=== PATIENT | female | born 1985 | race Caucasian/White ===

== ENCOUNTER 2017-12-16 14:27 | Observation (INO) ==
[2017-12-16] MEDS ORDERED: Acetaminophen 325 MG TABLET PO PRN (21:25)
[2017-12-16] MEDS ORDERED: *HR* LORazepam 2 MG/ML VIAL IVP PRN (21:29)
[2017-12-16 21:58] LABS: Basophils % 0.4 %; Eosinophils # 0.1 K/mcL (0.0-0.6); Eosinophils % 2.8 %; Hematocrit 34.7 % (35.3-44.9); Hemoglobin 12.6 g/dL (11.5-15.4); Immature Granulocytes % 0.4 % (0-4); Lymphocytes # 0.7 K/mcL (0.6-4.6); Lymphocytes % 29.3 %; Mean Corpuscular HGB Conc 36.3 g/dL (31.6-35.5); Mean Corpuscular Volume 96.4 fL (83.0-100.0); Mean Platelet Volume 11.6 fL (9.4-12.4); Monocytes # 0.3 K/mcL (0.0-1.3); Monocytes % 13.7 %; Neutrophils # 1.3 K/mcL (1.6-8.9); Red Cell Distribution Width 12.5 % (11.5-14.5); Segmented Neutrophils % 53.4 %
[2017-12-16] MEDS: Ringers Solution, Lactated 1,000 ML IVC SCH (22:04)
[2017-12-16 22:18] LABS: Platelet Count 89 K/mcL (140-400)
[2017-12-16 22:19] LABS: Alanine Aminotransferase 30 Units/L (7-52); Albumin 4.4 g/dL (3.5-5.7); Albumin/Globulin Ratio 1.7 (1.1-2.2); Alkaline Phosphatase 57 Units/L (34-104); Aspartate Amino Transferase 89 Units/L (13-39); BUN/Creatinine Ratio 23 (6-26); Blood Urea Nitrogen 6 mg/dL (6-20); Calcium 8.8 mg/dL (8.6-10.3); Carbon Dioxide 22 mEq/L (23-29); Chloride 103 mEq/L (98-107); Globulin 2.6 g/dL (2.4-3.5); Glucose 87 mg/dL (70-105); Osmolality,Calculated 279 (280-300); Potassium 3.2 mEq/L (3.5-5.1); Sodium 136 mEq/L (136-145); eGFR For African Americans > 60 (> 60); eGFR For Non-African Americans > 60 (> 60)
[2017-12-16 22:22] LABS: Large Platelets Present (Not Present); Platelet Estimate Decreased (Normal)
[2017-12-16 23:08] LABS: Bilirubin,Urine Small (Negative); Blood,Urine Negative (Negative); Clarity,Urine Clear (Clear); Color,Urine Dark Yellow (Yellow); Glucose,Urine (UA) Normal (Normal); Ketones,Urine 80 mg/dL (Negative); Leukocyte Esterase,Urine Negative (Negative); Nitrite,Urine Negative (Negative); Protein,Urine Negative (Neg-Trace); Specific Gravity,Urine 1.015 (1.010-1.025); Urobilinogen,Urine Normal (Normal)
--- NOTE | 2017-12-16 23:11 | Internal Med History&Physical ---
Date of Encounter: 12/16/17 Time of Encounter: 23:06 Internal Medicine - H&P: HPI Chief complaint: seizure Admitted From: Hospital to Hospital Transfer Plans for Post Hospital Care: Home History of present illness: Ms. Garvey is a 32 year old female who reports a history of hypertension, anxiety disorder and "seizures" that occurred 4 weeks ago after a trip to [place], happening while en route in [place]. She is admitted here today on transfer from outside hospital because she felt an aura suggestive of an upcoming seizure for which reason she sought attention. She did not have a seizure and only feels that her legs are weak. She is unable to describe the past seizure she had as she states that her memory of the events is poor. She feels that her seizure and tremors are related to "low potassium" and wants this checked. She states that "since " she has tremors for which she tried primidone in the past but was unhelpful. Of note, she reports having diarrhea for the past 6 months. She says her also has diarrhea but none of her 4 kids do. She states that she has sought medical attention for this but was not given a conclusive answer. She has intermittent abdominal pain with the diarrhea. She denies traveling outside the country or any other suspicious contacts. Other complaints she has today are abdominal pain and hematuria that reportedly was assessed 2 weeks ago by an outside provider and since resolved. Past Med Surg Social Fam HX - Past Medical History Medical history: hypertension, kidney stones, other Additional medical history: gastric surgery Psychiatric history: anxiety - Past Surgical History Surgical History: cholecystectomy Additional surgical history: gastric sleeve 2014. D&C x 2. UTERINE ABLAISION - Social History Smoking Status: Never smoker Smokeless Tobacco Status: No Alcohol use: occasionally Drug use: none - Family History Mother Age: 47 Living Status: Still Living Hx Family Cardiac Disorders: Yes (HTN, CT) Internal Medicine - H&P: Meds Alprazolam [Xanax] 2 mg PO AD PRN 09/25/17 [History] Metoprolol [Lopressor] 25 mg PO DAILY 12/15/17 [History] 3 Allergy/AdvReac Type Severity Reaction Status Date / Time Hydromorphone [From Dilaudid] AdvReac Hallucinati Verified 12/16/17 18:32 ng All Systems PM: A 10-system review of systems was performed and is negative for pertinent findings except as documented above in the HPI. - Constitutional Constitutional: as per HPI - Constitutional Vitals: Temp Pulse Resp BP Pulse Ox 98.6 F 74 18 146/91 96 12/16/17 22:58 12/16/17 22:58 12/16/17 22:58 12/16/17 22:58 12/16/17 22:58 Exam: Vitals: Reviewed and are within normal limits. General: Well developed white woman in no acute distress. Notable for shaking chills. Skin: No lesions noted. HEENT: Moist mucous membranes. No conjunctivae pallor. Neck: No lymphadenopathy. No JVD. No palpable thyroid. Chest: Normal thoracic expansion. Normal breath sounds. Clear to auscultation. Heart: Normal S1 & S2; rhythmic. No rubs or murmurs. Abdomen: Non-distended, soft and non-tender to palpation. No peritoneal reaction. Extremities: No clubbing, cyanosis or edema. No calf tenderness. Normal distal pulses. Neurological: Awake, alert and oriented to person, place and time. No focal deficits. Internal Med - H&P Results - Labs CBC & Chem 7: 12/16/17 21:47 12/16/17 21:47 Labs: Short CBC 12/16/17 Range/Units 21:47 WBC 2.5 L (4.3-11.1) K/mcL Hgb 12.6 (11.5-15.4) g/dL Hct 34.7 L (35.3-44.9) % Plt Count 89 L (140-400) K/mcL Neutrophils # 1.3 L (1.6-8.9) K/mcL BMP 12/16/17 21:47 Sodium 136 Potassium 3.2 L Chloride 103 Carbon Dioxide 22 L BUN 6 Creatinine 0.26 L Glucose 87 Calcium 8.8 Liver Function 12/16/17 Range/Units 21:47 Total Bilirubin 3.0 H (0.3-1.0) mg/dL AST 89 H (13-39) Units/L ALT 30 (7-52) Units/L Alkaline Phosphatase 57 (34-104) Units/L Albumin 4.4 (3.5-5.7) g/dL - Assessment and plan (1) Seizure disorder Current Visit: Yes Status: Acute Assessment and plan: Past history reported with an unclear history. No seizure activity today; just reporting weakness and numbness. -Will place on observation and maintain seizure precautions. -Lorazepam prn. -No indication for anti-epileptic medication at this point. -Neurology consultation if deemed necessary. (2) Occasional tremors Current Visit: Yes Status: Chronic Assessment and plan: Unclear etiology. Patient states she has had it since childhood but is now worse. No signs of sepsis. No seizure activity noted. UDS grossly unremarkable. -Neurology and psychiatry consultations should be considered. (3) Cytopenia Current Visit: Yes Status: Acute Assessment and plan: Incidentally noted on routine labs. Has a history of low white count on review of old records however the 3-cell line affectation is concerning. The added presence of AST elevation over ALT in addition to the cell line reduction gives concern for alcohol effects. Other differentials include hematologic condition such as MDS. -Will repeat labs again in the morning. -Hematology consultation should be placed if there is no improvement. -Not currently on any cytotoxic medications. (4) Abdominal pain Current Visit: Yes Status: Acute Assessment and plan: Non-specific. Denies dysuria. UA is not concerning for infection. Appears to have resolved without intervention. -Will monitor clinically. Qualifiers: Abdominal location: generalized Qualified Code(s): R10.84 - Generalized abdominal pain (5) Hypokalemia Current Visit: Yes Status: Acute Assessment and plan: Mild. Possibly related to GI losses from reported diarrhea. -Will supplement with KCL 40mEq. -Repeat bmp. -IV LR (6) Diarrhea Current Visit: Yes Status: Acute Assessment and plan: Chronic; yet to be witnessed by medical staff. No toxic signs and symptoms. No foreign exposures reported. -HIV testing ordered given concomitance with cytopenia. -Basic stool culture for now and if witnessed to be persistent, a more thorough work up will be in order. Qualifiers: Diarrhea type: unspecified type Qualified Code(s): R19.7 - Diarrhea, unspecified - Time Spent With Patient Total time spent is greater than 50% in coordination of care (as documented) at patient's floor/unit and/or counseling patient: 25 - 35 minutes
[2017-12-16] MEDS ORDERED: Potassium Chloride Elixir 20 MEQ/15 ML UDC PO SCH (23:15)
[2017-12-16] MEDS ORDERED: ALPRAZolam 1 MG TABLET PO PRN (23:16)
[2017-12-16 23:34] LABS: Amphetamine Screen,Urine Negative ng/mL (Cutoff=1000); Barbiturate Screen,Urine Negative ng/mL (Cutoff=200); Benzodiazepines Screen,Urine Positive ng/mL (Cutoff=200); Cannabinoid Screen,Urine Negative ng/mL (Cutoff = 50); Cocaine Screen,Urine Negative ng/mL (Cutoff= 300); Opiate Screen,Urine Negative ng/mL (Cutoff=300); Phencyclidine Screen,Urine Negative ng/mL (Cutoff=25)
[2017-12-17] MEDS ORDERED: traMADol 50 MG TABLET PO PRN (02:26)
[2017-12-17] MEDS: *HR* Heparin 5,000 UNIT/ML VIAL SQ SCH ×3 (06:23→20:20)
[2017-12-17] MEDS: Ringers Solution, Lactated 1,000 ML IVC SCH (08:30)
[2017-12-17 10:02] LABS: Basophils % 0.3 %; Immature Granulocytes % 0.3 % (0-4)
[2017-12-17 10:04] LABS: Eosinophils # 0.1 K/mcL (0.0-0.6); Eosinophils % 4.1 %; Hematocrit 34.3 % (35.3-44.9); Hemoglobin 12.6 g/dL (11.5-15.4); Immature Platelets 11.6 % (1.1-6.1); Lymphocytes # 1.1 K/mcL (0.6-4.6); Lymphocytes % 33.4 %; Mean Corpuscular HGB Conc 36.7 g/dL (31.6-35.5); Mean Corpuscular Hemoglobin 35.4 pg (28.0-33.3); Mean Corpuscular Volume 96.3 fL (83.0-100.0); Mean Platelet Volume 12.2 fL (9.4-12.4); Monocytes # 0.4 K/mcL (0.0-1.3); Monocytes % 13.8 %; Neutrophils # 1.5 K/mcL (1.6-8.9); Red Blood Count 3.56 M/mcL (3.82-4.97); Red Cell Distribution Width 12.5 % (11.5-14.5); Segmented Neutrophils % 48.1 %
[2017-12-17 10:23] LABS: Alanine Aminotransferase 27 Units/L (7-52); Albumin 4.4 g/dL (3.5-5.7); Albumin/Globulin Ratio 1.6 (1.1-2.2); Alkaline Phosphatase 52 Units/L (34-104); Aspartate Amino Transferase 68 Units/L (13-39); BUN/Creatinine Ratio 14 (6-26); Bilirubin,Total 3.4 mg/dL (0.3-1.0); Blood Urea Nitrogen 4 mg/dL (6-20); Calcium 9.1 mg/dL (8.6-10.3); Carbon Dioxide 23 mEq/L (23-29); Chloride 103 mEq/L (98-107); Globulin 2.7 g/dL (2.4-3.5); Glucose 105 mg/dL (70-105); Osmolality,Calculated 277 (280-300); Potassium 3.3 mEq/L (3.5-5.1); Sodium 135 mEq/L (136-145); Total Protein 7.1 g/dL (6.4-8.9); eGFR For African Americans > 60 (> 60); eGFR For Non-African Americans > 60 (> 60)
[2017-12-17 11:30] LABS: Platelet Count 93 K/mcL (140-400)
[2017-12-17] MEDS ORDERED: Ondansetron ODT 4 MG TAB.RAPDIS PO ONE (12:33)
[2017-12-17] MEDS ORDERED: Ondansetron ODT 4 MG TAB.RAPDIS SL PRN (12:38)
--- NOTE | 2017-12-17 13:20 | Internal Med Progress Note ---
Date of Encounter: 12/17/17 Time of Encounter: 12:15 - Assessment and plan (1) Alcohol abuse Current Visit: Yes Status: Chronic Assessment and plan: Pt reports drinking 4 days/week, 4-5 shots on the days that she drinks. Pt with recent subjective seizures without workup or confirmation, will order [facility] protocol for withdrawl. Pt with new thrombocytopenia, could be due to alcoholism, will continue to monitor and consult hematology if not trending up tomorrow. Start IV MVI, po thiamine, folic acid, and vitamin B complex (2) Abdominal pain Current Visit: Yes Status: Resolved Assessment and plan: Resolved. Qualifiers: Abdominal location: generalized Qualified Code(s): R10.84 - Generalized abdominal pain (3) Cytopenia Current Visit: Yes Status: Acute Assessment and plan: New neutropenia and thrombocytopenia since October. Unclear etiology, pt admits to drinking alcohol [address] abd/pelvis 12/15 shows marked diffuse hepatic steatosis. Pt is not currently on any cytotoxic medications. (4) Diarrhea Current Visit: Yes Status: Acute Assessment and plan: Pt reports diarrhea x 4 weeks since returning from vacation in [place]. She states that while driving home form [place], she and her became weak due to severe diarrhea and pulled over in [facility] and was taken to local ED for evaluation. Pt states that she was admitted and had seizure activity, "I bit my tongue." She reports being admitted to ICU during this stay. Admit note states that she has had diarrhea x 6 months, as has her , but not children. She has not had diarrhea since admission. Abd is soft and non-tender, BS present. Pt had mild hypokalemia on admission, will replete. Other labs are stable, osmolality is low. Stool studies ordered, pt has not had diarrhea since admission. Pt had abdominal pain on admission that has subsided. Stool studies, watch labs, vitals, and fluid balance Replete K+ Qualifiers: Diarrhea type: unspecified type Qualified Code(s): R19.7 - Diarrhea, unspecified (5) Hypokalemia Current Visit: Yes Status: Acute Assessment and plan: Continue to supplement, monitor labs. (6) Seizure disorder Current Visit: Yes Status: Acute Assessment and plan: Pt reports seizure activity while hospitalized in [place] approximately 1 month ago. Pt did not have neurology workup at that time. Suspect either to fluid volume loss from severe diarrhea, or withdrawl from ETOH. No prior history of seizures and none since. Will request records from that visit. Pt states that she was having the same feeling that she had before the seizure before she went to ED for evaluation. No seizure activity since arrival. Neuro has been consulted, as always, I appreciate his recommendations and consultation. EEG ordered Seizure precautions CIWA protocol ordered for potential ETOH withdrawl Monitor labs and vitals (7) Occasional tremors Current Visit: Yes Status: Chronic Assessment and plan: Pt reports tremors "since ". Pt states that they have become worse in the recently. Pt states that she has never had a neuro workup for this. Neurology consulted. (8) HTN (hypertension) Current Visit: Yes Status: Acute Assessment and plan: Pt with noted hypertension, BP above goal throughout visit. Added Lisinopril mg po daily Monitor BP and adjust medications accordingly. Qualifiers: Hypertension type: essential hypertension Qualified Code(s): I10 - Essential (primary) hypertension (9) DVT prophylaxis Current Visit: Yes Status: Acute Assessment and plan: Heparin SQ, pt is ambulatory in the room. - Time Spent With Patient Total time spent is greater than 50% in coordination of care (as documented) at patient's floor/unit and/or counseling patient: less than 15 minutes - Subjective Interval history: Pt was seen and assessed at bedside at 1215. Pt is alert and awake, she answers questions appropriately. She states that she is feeling tired and weak. She states that 4 weeks ago she was driving back from vacation in [place], she and her had severe diarrhea. She states that they pulled over and she fell out of the car, was taken to an ER, had some seizure activity and was in ICU "for a few days." She did not have any neuro testing done at that time. She states that she began having the same feeling that she had before the seizure 4 weeks ago, prompting her visit here. She reports tremors "since ", also without any neuro workup. She admits to drinking 4 days per week and having 4-5 shots per day. She states that she was transfered here from [facility] for neurology consultation and workup. - Constitutional Vitals: Temp Pulse Resp BP Pulse Ox 98.6 F 66 18 160/99 97 12/17/17 11:20 12/17/17 11:20 12/17/17 11:20 12/17/17 11:20 12/17/17 11:20 General appearance: Present: cooperative, A&O X 3, pleasant, no acute distress, answers questions appropriately - Head Head exam: Present: atraumatic, normal inspection, normocephalic - Eye Eye exam: Present: EOMI, normal appearance, conjuntiva pink, sclera anicteric. Absent: nystagmus - Neck Neck exam general surgery: Present: supple, trachea midline. Absent: lymphadenopathy, tenderness - Respiratory Respiratory exam: Present: CTAB. Absent: accessory muscle use, chest wall tenderness, rales, respiratory distress, rhonchi, wheezes - Cardiovascular Cardiovascular exam: Present: RRR, +S1, +S2. Absent: diastolic murmur, gallop, rubs, systolic murmur - GI/Abdominal GI/Abdominal exam: Present: normal bowel sounds, soft. Absent: distended, hepatomegaly, tenderness - Extremities Exam Extremities exam: Present: normal capillary refill, normal inspection, warm, radial pulses palpable and symmetrical. Absent: calf tenderness, cyanotic, pedal edema, tenderness - Neurological Exam Neurological exam: Present: alert, oriented X3, no focal deficits. Absent: facial droop, speech deficit - Skin Skin exam: Present: dry, intact, normal color, warm. Absent: rash Internal Medicine: Result - Labs CBC & Chem 7: 12/17/17 09:32 12/17/17 09:32 Labs: Short CBC 12/16/17 12/17/17 Range/Units 21:47 09:32 WBC 2.5 L 3.2 L (4.3-11.1) K/mcL Hgb 12.6 12.6 (11.5-15.4) g/dL Hct 34.7 L 34.3 L (35.3-44.9) % Plt Count 89 L 93 L (140-400) K/mcL Neutrophils # 1.3 L 1.5 L (1.6-8.9) K/mcL BMP 12/16/17 12/17/17 21:47 09:32 Sodium 136 135 L Potassium 3.2 L 3.3 L Chloride 103 103 Carbon Dioxide 22 L 23 BUN 6 4 L Creatinine 0.26 L 0.29 L Glucose 87 105 Calcium 8.8 9.1 Liver Function 12/16/17 12/17/17 Range/Units 21:47 09:32 Total Bilirubin 3.0 H 3.4 H (0.3-1.0) mg/dL AST 89 H 68 H (13-39) Units/L ALT 30 27 (7-52) Units/L Alkaline Phosphatase 57 52 (34-104) Units/L Albumin 4.4 4.4 (3.5-5.7) g/dL Urine 12/16/17 Range/Units 22:50 Urine Color Dark Yellow (Yellow) Urine Clarity Clear (Clear) Urine pH 7.0 (5.0-8.0) pH Units Ur Specific [place] 1.015 (1.010-1.025) Urine Protein Negative (Neg-Trace) mg/dL Urine Glucose (UA) Normal (Normal) mg/dL - Impressions Impressions Abdomen X-Ray 12/16/17 21:27 IMPRESSION: No acute abdominal radiographic abnormality. D/ / Vero Conti Cha, MD / Vero Conti Cha, MD Interpreting Provider: Vero Conti Cha, MD Consult Discharge Plan - Plan Referrals: Concepcion Correa, DEEPAK [Primary Care Provider] -
[2017-12-17] MEDS ORDERED: Fluticasone Propionate Nasal 50 MCG/SPRAY BOTTLE NS PRN (14:08)
[2017-12-17] MEDS ORDERED: Loratadine 10 MG TABLET PO PRN (14:08)
[2017-12-17 14:25] LABS: Amylase 18 Units/L (29-103); Ethanol < 10 mg/dL (Less than 10); Lipase 38 Units/L (11-82)
[2017-12-17] MEDS ORDERED: Folic Acid 1 MG TABLET PO SCH (16:00)
[2017-12-17] MEDS ORDERED: Thiamine (B-1) 100 MG TABLET PO SCH (16:00)
[2017-12-17] MEDS ORDERED: Vitamin B Complex/Vit C/Vit E 1 EACH TABLET PO SCH (16:00)
[2017-12-17] MEDS ORDERED: *HR* LORazepam 2 MG/ML VIAL IVP ONE (16:15)
[2017-12-17 17:07] LABS: Magnesium 1.4 mg/dL (1.6-2.6)
[2017-12-17 17:08] LABS: Troponin I < 0.03 ng/mL (< 0.04)
--- NOTE | 2017-12-17 17:08 | EEG/EMG/Oth Biometrics Report ---
EEG Procedure Report Date of procedure: 12/17/17 EEG Procedure: Routine EEG Procedure Note: This is a report of a 21 channel bipolar and referential montage EEG. The posterior dominant rhythm consisted of predominantly mixed frequencies due to a combination of excessive myogenic artifact and beta activity. Occasional alpha is seen and breaking through. This rhythm is not reactive to eye opening. Excessive myogenic artifact is identified in the frontal leads bilaterally from time to time. Hyperventilation is performed and does not reveal result in any ictal activity. However increased myogenic artifact is identified during hyperventilation. There is no sleep activity identified during the study. Patient mentions tremoring during the recording and there is no evidence of ictal activity associated with her tremors. Photic stimulations performed and does not produce a driving response. The EKG is difficult to assess due to excessive background noise. I would estimated to be around 66-72 bpm. Impressions: This EEG recording is within normal limits. There is no evidence of epileptiform activity identified during the recording. Comment: Excessive myogenic artifact is identified during the recording. This does not however preclude accurate interpretation of the study. Please correlate clinically.
--- NOTE | 2017-12-17 17:27 | Neurology - Consult Note ---
Date of Encounter: 12/17/17 Time of Encounter: 17:24 Assessment and Plan (1) Occasional tremors Current Visit: Yes Status: Chronic I am not convinced that this patient has a true seizure disorder. She is 32 years of age and has never been under the care of a neurologist for a specific diagnosis of seizures or epilepsy. She does however have tremors which are likely exacerbated due to alcohol use/abuse and perhaps withdrawal. Her EEG did not reveal evidence of seizure activity. Her neurologic examination does reveal tremors and exaggerated deep tendon reflexes however this is likely due to sympathetic rebound. At this juncture I am not convinced that we are dealing with epilepsy. I would not start her on an antiepileptic medication at this time. I would have her follow up with her primary care provider after discharge to consider perhaps topiramate or propranolol for her tremors. Apparently she was intolerant of primidone. I will reevaluate her at your request. History of Present Illness HPI: Chart was reviewed, the patient was seen and examined. The case was discussed with the hospitalist. Ms. Garvey is a 32 year old female who presents with a history of hypertension and anxiety disorder and tremors as well as excessive alcohol abuse. She seen for neurologic consultation secondary to "seizures" apparently she presented to an outside hospital for which she described as seizures and weakness all over. She was transferred to our facility for further assessment. She informs me that she has had tremors over since she was acute. She states that she has only been drinking heavily for the last year. She describes these episodes of seizures. She is never been treated by a neurologist for seizure disorder. She did not bite her tongue, she did not hurt herself. She is awake alert and oriented now. She is able to follow commands and answer questions appropriately. I did interpret the EEG which did not reveal evidence of seizure activity. He did however reveal excessive myogenic artifact which is not uncommon in individuals with anxiety disorder. Past Med Surg Social Fam HX - Past Medical History Medical history: hypertension, kidney stones, other Additional medical history: gastric surgery Psychiatric history: anxiety - Past Surgical History Surgical History: cholecystectomy Additional surgical history: gastric sleeve 2015. D&C x 2. UTERINE ABLAISION - Social History Smoking Status: Never smoker Smokeless Tobacco Status: No Alcohol use: occasionally Drug use: none - Family History Mother Age: 47 Living Status: Still Living Hx Family Cardiac Disorders: Yes (HTN, [place]) Medications and Allergies Metoprolol [Lopressor] 25 mg PO BID 12/15/17 [History] Cetirizine HCl [All Day Allergy] 10 mg PO DAILY PRN 12/17/17 [History] Fluticasone Propionate Nasal [Flonase] 1 spr NS DAILY PRN 12/17/17 [History] Meloxicam [Meloxicam] 15 mg PO DAILY 12/17/17 [History] 3 Allergy/AdvReac Type Severity Reaction Status Date / Time Hydromorphone [From Dilaudid] AdvReac Hallucinati Verified 12/16/17 18:32 ng All Systems: The remainder of the systems were reviewed and are negative Review of Systems: The balance of the systems review is negative. Physical Examination - Vital Signs Vital Signs: Initial Vital Signs Temp Pulse Resp BP Pulse Ox 99 F 72 18 155/103 100 12/16/17 19:26 12/16/17 19:26 12/16/17 19:26 12/16/17 19:26 12/16/17 19:26 - Constitutional General appearance: other (Somewhat anxious in appearance.) - Neurologic Sensorimotor examination: other (Physiologic tremors are present.) Motor examination - right side: 5/5: deltoids, biceps, triceps, agricultural commodities inspector, hip flexors, tibialis Anterior, quadriceps, toe extension (EHL), plantarflexion Motor examination - left side: 5/5: deltoids, biceps, triceps, hip flexors, agricultural commodities inspector , quadriceps, tibialis Anterior, toe extension (EHL), plantarflexion Detailed sensory examination: intact Reflex and gait examination: other (Deep tendon reflexes are highly exaggerated. 3+/4 throughout. However no clonus, or Babinski at present.) Mental Status Examination: awake, alert, oriented to person, oriented to place, oriented to time, follows commands appropriately, answers questions appropriately, no agnosia, no aphasia, no aproxia Cranial nerve examination: PERRL, EOMI, visual flor intact, corneal reflexes brisk symmetrically, sensory to face intact, mastication intact, no facial asymmetry is present, no dysarthria, hearing is intact symmetrically, soft palate elevates bilaterally upon phonation, gag reflex intact, flexes SCM and trapezius muscles symmetrically with full power, tongue protrudes midline, no atrophy or facial fasiculations present Results - Laboratory Findings CBC and BMP: 12/17/17 09:32 12/17/17 09:32 Abnormal lab findings: Abnormal lab results WBC 3.2 K/mcL (4.3-11.1) L 12/17/17 09:32 RBC 3.56 M/mcL (3.82-4.97) L 12/17/17 09:32 Hct 34.3 % (35.3-44.9) L 12/17/17 09:32 MCH 35.4 pg (28.0-33.3) H 12/17/17 09:32 MCHC 36.7 g/dL (31.6-35.5) H 12/17/17 09:32 Plt Count 93 K/mcL (140-400) L 12/17/17 09:32 Neutrophils # 1.5 K/mcL (1.6-8.9) L 12/17/17 09:32 Platelet Estimate Decreased (Normal) L 12/16/17 21:47 Large Platelets Present (Not Present) A 12/16/17 21:47 Immature Plt Fraction 11.6 % (1.1-6.1) H 12/17/17 09:32 Sodium 135 mEq/L (136-145) L 12/17/17 09:32 Potassium 3.3 mEq/L (3.5-5.1) L 12/17/17 09:32 BUN 4 mg/dL (6-20) L 12/17/17 09:32 Creatinine 0.29 mg/dL (0.60-1.20) L 12/17/17 09:32 POC Glucose 138 mg/dL (70-99) H 12/16/17 23:40 Calculated Osmolality 277 (280-300) L 12/17/17 09:32 Magnesium 1.4 mg/dL (1.6-2.6) L 12/17/17 16:38 Total Bilirubin 3.4 mg/dL (0.3-1.0) H 12/17/17 09:32 AST 68 Units/L (13-39) H 12/17/17 09:32 Amylase 18 Units/L (29-103) L 12/17/17 13:30 Urine Ketones 80 mg/dL (Negative) H 12/16/17 22:50 Urine Bilirubin Small (Negative) H 12/16/17 22:50 U Benzodiazepines Scrn Positive ng/mL ([id number]) H 12/16/17 22:37 Consult Discharge Plan - Plan Referrals: Concepcion Correa CNP [Primary Care Provider] -
[2017-12-17] MEDS ORDERED: Thiamine (B-1) 100 MG, Folic Acid 1 MG, MVI, adult with vitamin K 10 ML in 0.9 % Sodi... IVPB SCH (18:00)
[2017-12-17] MEDS ORDERED: Magnesium Oxide 400 MG TABLET PO SCH (21:00)
[2017-12-17] MEDS ORDERED: Vancomycin Oral Soln 125 MG/2.5 ML UDC PO SCH (21:00)
[2017-12-17] MEDS ORDERED: *HR* LORazepam 2 MG/ML VIAL IVP PRN ×2 (23:06)
[2017-12-17] MEDS: *HR* LORazepam 2 MG/ML VIAL IVP PRN (23:30)
[2017-12-18 01:07] LABS: Basophils % 0.4 %; Eosinophils # 0.1 K/mcL (0.0-0.6); Eosinophils % 1.1 %; Hematocrit 33.8 % (35.3-44.9); Hemoglobin 12.3 g/dL (11.5-15.4); Immature Granulocytes % 0.6 % (0-4); Lymphocytes % 21.9 %; Mean Corpuscular HGB Conc 36.4 g/dL (31.6-35.5); Mean Corpuscular Hemoglobin 34.4 pg (28.0-33.3); Mean Corpuscular Volume 94.4 fL (83.0-100.0); Mean Platelet Volume 11.9 fL (9.4-12.4); Monocytes # 0.7 K/mcL (0.0-1.3); Monocytes % 13.9 %; Neutrophils # 2.9 K/mcL (1.6-8.9); Platelet Count 108 K/mcL (140-400); Red Blood Count 3.58 M/mcL (3.82-4.97); Red Cell Distribution Width 12.6 % (11.5-14.5); Segmented Neutrophils % 62.1 %
[2017-12-18] MEDS: *HR* LORazepam 2 MG/ML VIAL IVP PRN (01:20)
[2017-12-18 01:26] LABS: BUN/Creatinine Ratio 22 (6-26); Blood Urea Nitrogen 8 mg/dL (6-20); Calcium 9.5 mg/dL (8.6-10.3); Carbon Dioxide 21 mEq/L (23-29); Chloride 103 mEq/L (98-107); Glucose 112 mg/dL (70-105); Osmolality,Calculated 281 (280-300); Potassium 3.4 mEq/L (3.5-5.1); Sodium 136 mEq/L (136-145); eGFR For African Americans > 60 (> 60); eGFR For Non-African Americans > 60 (> 60)
[2017-12-18] MEDS ORDERED: Fluticasone Propionate Nasal 50 MCG/SPRAY BOTTLE NS PRN (02:27)
[2017-12-18] MEDS ORDERED: Loratadine 10 MG TABLET PO PRN (02:27)
[2017-12-18] MEDS ORDERED: Ondansetron ODT 4 MG TAB.RAPDIS SL PRN (02:27)
[2017-12-18] MEDS ORDERED: traMADol 50 MG TABLET PO PRN (02:27)
[2017-12-18] MEDS ORDERED: Acetaminophen 325 MG TABLET PO PRN (02:27)
[2017-12-18] MEDS ORDERED: *HR* LORazepam 2 MG/ML VIAL IVP PRN ×4 (02:27)
[2017-12-18] MEDS ORDERED: *HR* LORazepam 2 MG/ML VIAL ONE ×2 (02:37→05:20)
--- NOTE | 2017-12-18 02:54 | Event Note ---
Date of Encounter: 12/18/17 Time of Encounter: 02:00 Notified by RN that patient was very agitated, having visual hallucinations, tremorous, and threatening to leave AMA at 0102. Her most recent CIWA score was 20 and she received Ativan 2mg IV. On recheck, her CIWA score was 24 but patient remained very agitated and was trying to leave AMA. On exam, she was disoriented to person, time, and place. Patient was initially given Haldol and an additional Ativan 2mg IV without relief. She continued having detailed conversations with the plant in her room and not cooperating with staff on the 3B nursing unit. Patient was pink slipped and transferred to for ongoing alcohol withdrawal treatment. Attending, Dr. Ponce, also evaluated to patient and agreed with the plan.
[2017-12-18] MEDS ORDERED: diazePAM 10 MG/2 ML SYRINGE IVP ONE (04:32)
[2017-12-18] MEDS ORDERED: Haloperidol Lactate 5 MG/ML VIAL IM ONE (04:57)
[2017-12-18] MEDS ORDERED: Haloperidol Lactate 5 MG/ML VIAL ONE (05:26)
[2017-12-18] MEDS ORDERED: *HR* LORazepam 2 MG/ML VIAL IVP STA (05:34)
[2017-12-18] MEDS ORDERED: Haloperidol Lactate 5 MG/ML VIAL IM STA (05:35)
[2017-12-18] MEDS: *HR* Heparin 5,000 UNIT/ML VIAL SQ SCH ×3 (05:40→22:05)
[2017-12-18] MEDS: 0.9 % Sodium Chloride 1,000 ML IVC SCH (08:45)
[2017-12-18] MEDS: Magnesium Oxide 400 MG TABLET PO SCH ×2 (08:46→20:10)
[2017-12-18] MEDS: Folic Acid 1 MG TABLET PO SCH (08:46)
[2017-12-18] MEDS: Thiamine (B-1) 100 MG TABLET PO SCH (08:46)
[2017-12-18] MEDS: Vitamin B Complex/Vit C/Vit E 1 EACH TABLET PO SCH (08:46)
[2017-12-18] MEDS: Vancomycin Oral Soln 125 MG/2.5 ML UDC PO SCH ×3 (08:46→17:16)
--- NOTE | 2017-12-18 10:19 | Event Note ---
Date of Encounter: 12/18/17 Time of Encounter: 10:00 - Cardiology Event Note Reviewed multiple telemetry strips with Dr. Hendricks due to concern of ventricular tachycardia. Strips in question appear to be artifact. No NSVT or VT noted. She does have an episode of bigeminy, however in the setting of acute withdraw and electrolyte imbalance. No further testing recommended. Communicated with primary service who agrees to cancel consult.
[2017-12-18] MEDS ORDERED: diazePAM 10 MG/2 ML SYRINGE IVP PRN ×5 (13:24)
--- NOTE | 2017-12-18 16:41 | Internal Med Progress Note ---
Date of Encounter: 12/18/17 Time of Encounter: 11:45 - Assessment and plan (1) Alcohol abuse Current Visit: Yes Status: Chronic Assessment and plan: Pt now reports drinking daily, 4-5 shots daily. Pt with recent subjective seizures without workup or confirmation, [facility] protocol for withdrawl. Ativan appears to not work for pt, [facility] protocol has been changed to Valium. Pt with new thrombocytopenia, could be due to alcoholism, will continue to monitor and consult hematology if not trending up tomorrow. Continue IV MVI, po thiamine, folic acid, and vitamin B complex (2) Abdominal pain Current Visit: Yes Status: Resolved Qualifiers: Abdominal location: generalized Qualified Code(s): R10.84 - Generalized abdominal pain (3) Cytopenia Current Visit: Yes Status: Acute Assessment and plan: WBC WNL. Plts increased today. Continue to monitor. Likely due to chronic alcoholism. (4) Diarrhea Current Visit: Yes Status: Acute Assessment and plan: Pt reports diarrhea x 4 weeks since returning from vacation in [place]. Stool studies positive for C diff. Pt started on Vancomycin 250mg po 4x daily. Abd is soft and non-tender, BS present. Pt had mild hypokalemia on admission, will replete. Other labs are stable, osmolality is /WNL. Pt had abdominal pain on admission that has subsided. Vancomycin 250mg po 4x daily watch labs, vitals, and fluid balance Replete K+ Qualifiers: Diarrhea type: unspecified type Qualified Code(s): R19.7 - Diarrhea, unspecified (5) Hypokalemia Current Visit: Yes Status: Acute Assessment and plan: Continue to supplement, monitor labs in the morning. (6) Seizure disorder Current Visit: Yes Status: Acute Assessment and plan: No seizure activity, patient presented to the emergency room for aura like symptom, similar to when she experienced with her original seizure-like activity one month ago. Suspect either to fluid volume loss from severe diarrhea, or withdrawl from ETOH. No prior history of seizures and none since. No seizure activity since arrival. Neurology has been consulted, states that he is not and institute patient has epilepsy and does not recommend starting her on any antiepileptic medications. EEG was negative Seizure precautions [facility] protocol ordered for ETOH withdrawl Monitor labs and vitals (7) Occasional tremors Current Visit: Yes Status: Chronic Assessment and plan: Pt reports tremors "since ". Pt states that they have become worse recently. Neurology has been consulted, recommends follow-up with primary care after discharge for topiramate or propanolol. (8) HTN (hypertension) Current Visit: Yes Status: Acute Assessment and plan: Pt with noted hypertension, BP has returned to around goal. Added Lisinopril mg po daily, continue after discharge. Monitor BP and adjust medications accordingly. Qualifiers: Hypertension type: essential hypertension Qualified Code(s): I10 - Essential (primary) hypertension (9) DVT prophylaxis Current Visit: Yes Status: Acute Assessment and plan: SQ Heparin, pt is ambulatory in the room. (10) C. difficile diarrhea Current Visit: Yes Status: Acute Assessment and plan: Vancomycin 250mg po 4 times daily. (11) Alcohol withdrawal Current Visit: Yes Status: Acute Assessment and plan: Patient became combative, trying to leave AMA last night. Patient CIWA assessment score was elevated. Patient did not respond to Ativan. Patient was also given IM and by mouth Haldol, and Valium and was transferred to another unit for closer observation. Patient was having visual and auditory hallucinations and was pink slipped. She has returned to baseline today, she is still having tremors and tachycardia. CIWA protocol was changed from Ativan to Valium since she responds to it better. Consult to psychiatrist has been maintained for evaluation. 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 Pt is alert and awake, she answers questions appropriately. She states that she is feeling tired and weak. Today she admits that she drinks daily, but still maintains that she only drinks 4-5 shots per day. she staets that she has no recollection of talking to a plant last night and states that she wanted to go home and get her kids' things ready to go to [place]. She denies headache, nausea, vomiting, diaphoresis, abdominal pain, dizziness. She denies auditory or visual hallucinations. She denies suicidal or homicidal ideations. - Constitutional Vitals: Temp Pulse Resp BP Pulse Ox 97.9 F 60 15 134/81 99 12/18/17 16:00 12/18/17 16:00 12/18/17 16:00 12/18/17 12:14 12/18/17 16:00 General appearance: Present: cooperative, A&O X 3, pleasant, no acute distress, answers questions appropriately - Head Head exam: Present: atraumatic, normal inspection, normocephalic - Eye Eye exam: Present: normal appearance, conjuntiva pink, sclera anicteric - Neck Neck exam general surgery: Present: supple, trachea midline. Absent: lymphadenopathy - Respiratory Respiratory exam: Present: CTAB. Absent: accessory muscle use, rales, rhonchi, wheezes - Cardiovascular Cardiovascular exam: Present: RRR, +S1, +S2. Absent: diastolic murmur, gallop, rubs, systolic murmur - GI/Abdominal GI/Abdominal exam: Present: normal bowel sounds, soft. Absent: distended, tenderness - Extremities Exam Extremities exam: Present: normal capillary refill, normal inspection, warm, radial pulses palpable and symmetrical. Absent: calf tenderness, cyanotic, pedal edema, tenderness - Neurological Exam Neurological exam: Present: alert, oriented X3, no focal deficits. Absent: facial droop, speech deficit - Skin Skin exam: Present: dry, intact, normal color, warm. Absent: rash Internal Medicine: Result - Labs CBC & Chem 7: 12/18/17 00:49 12/18/17 00:49 Labs: Short CBC 12/18/17 Range/Units 00:49 WBC 4.7 (4.3-11.1) K/mcL Hgb 12.3 (11.5-15.4) g/dL Hct 33.8 L (35.3-44.9) % Plt Count 108 L (140-400) K/mcL Neutrophils # 2.9 (1.6-8.9) K/mcL BMP 12/18/17 12/18/17 00:49 00:49 Sodium 136 Potassium 3.4 L 3.3 L Chloride 103 Carbon Dioxide 21 L BUN 8 Creatinine 0.37 L Glucose 112 H Calcium 9.5 Cardiac Enzymes 12/17/17 12/17/17 12/18/17 Range/Units 16:38 22:06 03:33 Troponin I < 0.03 < 0.03 < 0.03 (< 0.04) ng/mL - Impressions Impressions Echocardiogram 12/17/17 17:11 Impressions: LVEF 50%. Low normal to mildly reduced global LV systolic dysfunction. Septal bounce of unclear etiology. Mild left ventricular diastolic dysfunction. Normal LV chamber size and wall thickness. Normal right ventricular structure and function. Mild tricuspid regurgitation. Mild pulmonic regurgitation. No pulmonary hypertension. Left Ventricular Wall Motion: Rest Echo Findings All wall segments showed normal motion. Findings: Study Quality * Technically adequate exam. ECG Findings * Normal sinus rhythm. Left Ventricle * Mild left ventricular diastolic dysfunction. * LVEF 50%. * Normal LV chamber size and wall thickness. Right Ventricle * Normal right ventricular structure and function. Left Atrium * Normal left atrial size. Right Atrium * Normal right atrial size. Mitral Valve * Normal mitral valve structure. * No mitral stenosis. * Trace mitral regurgitation. Aortic Valve * No aortic regurgitation. * Trileaflet aortic valve. * No aortic stenosis. Tricuspid Valve * Normal tricuspid valve structure. * Mild tricuspid regurgitation. Pulmonic Valve * Pulmonic valve is not well visualized. * No pulmonic stenosis. * Mild pulmonic regurgitation. Pulmonary Artery * Pulmonary artery not well visualized. Aorta * Normally sized aortic root. Pericardium * There is no pericardial effusion present. Interatrial Septum * Interatrial septum not well evaluated. IVC * The IVC is not well evaluated. - VTE Documentation of Mechanical Device: Intermittent pneumatic compression device Consult Discharge Plan - Plan Referrals: Chela Mukherjee CNP [Advanced Practice Nurse] - 12/30/17 3:30 pm
--- NOTE | 2017-12-18 19:01 | Electrocardiograph Report ---
[place] [id number] Test Date: 2017-12-17 Pat Name: Maria Luisa Garvey Department: 113 Room: 2N06 Gender: F [employer]: : [id number] Requested By: Leslie Tamayo Order Number: [id number] Reading MD: Danni Montemayor Measurements Intervals Dana Rate: 94 P: 42 VA: 147 QRS: 18 QRSD: 86 T: 17 QT: 423 QTc: 475 Interpretive Statements SINUS RHYTHM WITH OCCASIONAL VENTRICULAR PREMATURE COMPLEXES ARTIFACT LIMITS INTERPRETATION Electronically Signed On 12-18-2017 19:00:04 EDT by Danni Montemayor
[2017-12-18] MEDS: ALPRAZolam 1 MG TABLET PO PRN (20:10)
[2017-12-19 10:29] LABS: BUN/Creatinine Ratio 44 (6-26); Blood Urea Nitrogen 16 mg/dL (6-20); Calcium 8.7 mg/dL (8.6-10.3); Carbon Dioxide 26 mEq/L (23-29); Chloride 108 mEq/L (98-107); Glucose 101 mg/dL (70-105); Osmolality,Calculated 291 (280-300); Potassium 3.1 mEq/L (3.5-5.1); Sodium 140 mEq/L (136-145); eGFR For African Americans > 60 (> 60); eGFR For Non-African Americans > 60 (> 60)
[2017-12-19 11:05] LABS: Basophils % 0.3 %; Eosinophils # 0.1 K/mcL (0.0-0.6); Eosinophils % 3.6 %; Hematocrit 30.2 % (35.3-44.9); Hemoglobin 10.5 g/dL (11.5-15.4); Immature Granulocytes % 0.3 % (0-4); Immature Platelets 14.5 % (1.1-6.1); Lymphocytes # 1.2 K/mcL (0.6-4.6); Lymphocytes % 39.5 %; Mean Corpuscular HGB Conc 34.8 g/dL (31.6-35.5); Mean Corpuscular Hemoglobin 34.5 pg (28.0-33.3); Mean Corpuscular Volume 99.3 fL (83.0-100.0); Mean Platelet Volume 12.5 fL (9.4-12.4); Monocytes # 0.5 K/mcL (0.0-1.3); Monocytes % 16.7 %; Neutrophils # 1.2 K/mcL (1.6-8.9); Red Blood Count 3.04 M/mcL (3.82-4.97); Red Cell Distribution Width 13.2 % (11.5-14.5); Segmented Neutrophils % 39.6 %
[2017-12-19] MEDS: *HR* Heparin 5,000 UNIT/ML VIAL SQ SCH ×3 (11:42→21:37)
[2017-12-19] MEDS: Vancomycin Oral Soln 125 MG/2.5 ML UDC PO SCH ×5 (11:42→21:30)
[2017-12-19] MEDS: 0.9 % Sodium Chloride 1,000 ML IVC SCH ×3 (11:42→18:50)
[2017-12-19] MEDS: Magnesium Oxide 400 MG TABLET PO SCH ×2 (11:43→21:29)
[2017-12-19] MEDS: Vitamin B Complex/Vit C/Vit E 1 EACH TABLET PO SCH (11:43)
[2017-12-19] MEDS: Thiamine (B-1) 100 MG TABLET PO SCH (11:43)
[2017-12-19] MEDS: Folic Acid 1 MG TABLET PO SCH (11:43)
[2017-12-19 11:51] LABS: Platelet Count 99 K/mcL (140-400)
[2017-12-19] MEDS ORDERED: Ziprasidone 80 MG CAPSULE PO PRN (15:39)
--- NOTE | 2017-12-19 15:58 | Psychiatry Progress Note ---
Date of Encounter: 12/20/17 Time of Encounter: 15:30 Subjective Interval history: 32 years old female admitted to the hospital for treatment of alcohol withdrawal and seizures currently on CIWA scale. Psych consult requested the unit to altered mental status and visual hallucination and no record of any mental health's issues are on the chart. Results - Vital Signs Vital Signs: Temp Pulse Resp BP Pulse Ox 97.8 F 60 15 148/98 99 12/19/17 11:00 12/19/17 11:00 12/19/17 11:00 12/19/17 11:00 12/19/17 11:00 - Labs Labs: Laboratory Results - last 24 hr 12/19/17 12/19/17 04:50 04:50 WBC 3.1 L RBC 3.04 L Hgb 10.5 L D Hct 30.2 L MCV 99.3 MCH 34.5 H MCHC 34.8 RDW 13.2 Plt Count 99 L MPV 12.5 H Immature Gran % 0.3 Seg Neutrophils % 39.6 Lymphocytes % 39.5 Monocytes % 16.7 Eosinophils % 3.6 Basophils % 0.3 Neutrophils # 1.2 L Lymphocytes # 1.2 Monocytes # 0.5 Eosinophils # 0.1 Basophils # 0.0 Immature Plt Fraction 14.5 H Sodium 140 Potassium 3.1 L Chloride 108 H Carbon Dioxide 26 BUN 16 Creatinine 0.36 L Est GFR ( Amer) > 60 Est GFR (Non-Af Amer) > 60 BUN/Creatinine Ratio 44 H Glucose 101 Calculated Osmolality 291 Calcium 8.7 - Impressions ITS Impressions Abdomen X-Ray 12/16/17 21:27 IMPRESSION: No acute abdominal radiographic abnormality. D/ / Vero Conti Cha, MD / Vero Conti Cha, MD Interpreting Provider: Vero Conti Cha, MD Echocardiogram 12/17/17 17:11 Impressions: LVEF 50%. Low normal to mildly reduced global LV systolic dysfunction. Septal bounce of unclear etiology. Mild left ventricular diastolic dysfunction. Normal LV chamber size and wall thickness. Normal right ventricular structure and function. Mild tricuspid regurgitation. Mild pulmonic regurgitation. No pulmonary hypertension. Left Ventricular Wall Motion: Rest Echo Findings All wall segments showed normal motion. Findings: Study Quality * Technically adequate exam. ECG Findings * Normal sinus rhythm. Left Ventricle * Mild left ventricular diastolic dysfunction. * LVEF 50%. * Normal LV chamber size and wall thickness. Right Ventricle * Normal right ventricular structure and function. Left Atrium * Normal left atrial size. Right Atrium * Normal right atrial size. Mitral Valve * Normal mitral valve structure. * No mitral stenosis. * Trace mitral regurgitation. Aortic Valve * No aortic regurgitation. * Trileaflet aortic valve. * No aortic stenosis. Tricuspid Valve * Normal tricuspid valve structure. * Mild tricuspid regurgitation. Pulmonic Valve * Pulmonic valve is not well visualized. * No pulmonic stenosis. * Mild pulmonic regurgitation. Pulmonary Artery * Pulmonary artery not well visualized. Aorta * Normally sized aortic root. Pericardium * There is no pericardial effusion present. Interatrial Septum * Interatrial septum not well evaluated. IVC * The IVC is not well evaluated. Assessment and Plan (1) Alcohol withdrawal Current visit: Yes Status: Acute Plan: Other (per medical team) Additional Plan: 1. Continue CIWA scale to stabilize the patient 2. Geodon 20 mg by mouth or IM every 6 hours when necessary can be given for agitation. 3. No acute psychiatric issue that require inpatient psychiatric care at this time. 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 Take your medications as directed. Stop drinking and seek help for alcohol cessation in a treatment plan or program. Return to the ER as needed for any other problem or concerns or if your symptoms return or worsen. Take your antibiotic as written and take it until it is completely gone. Return to your normal diet and activities as tolerated. Resume your other home medications Referrals: Chela Mukherjee, [employer]ER [Advanced Practice Nurse] - 12/30/17 3:30 pm Prescriptions: Lisinopril [Zestril] 5 mg PO DAILY #30 tablet Multivitamin with Folic Acid [Gnp One Daily Essential Tablet] 400 mcg PO DAILY # 30 tablet Vancomycin Oral Soln [Firvanq] 125 mg PO QID #100 ml Psychiatry Exam - Constitutional Vitals: Temp Pulse Resp BP Pulse Ox 97.8 F 60 15 148/98 99 12/19/17 11:00 12/19/17 11:00 12/19/17 11:00 12/19/17 11:00 12/19/17 11:00 General appearance: age & developmentally appropriate, well-groomed, well- nourished - Musculoskeletal Gait: normal Station: relaxed Strength & Tone: normal for patient - Psychiatric Patient Orientation: Yes Person, Yes Time, Yes Place Level of alertness: Alert Behavior: calm, cooperative Psychomotor activity: Normal Eye Contact: Maintains Eye Contact Mood Description: Euthymic/stable Affect description: congruent with mood, full range Speech Volume: Normal Speech pattern: normal rate, normal rhythm, normal tone, fluent, spontaneous Language & Vocabulary: consistent with education Thought Process: Linear, Goal Oriented Thought Content: No Suicidal ideation, No Homicidal ideation, No Overt delusions Perceptual Disturbances: No Auditory hallucinations, No Visual hallucinations Attention Span Ability: Capable of Focused Attention Memory Description: Grossly Intact Patient Reliability: Reliable Historian Fund of knowledge: Yes abstraction ability, Yes aware of current events Intelligence Estimate: Average Judgment: Limited Insight: Partial
--- NOTE | 2017-12-19 17:20 | Internal Med Progress Note ---
Date of Encounter: 12/19/17 Time of Encounter: 15:40 - Assessment and plan (1) Alcohol abuse Current Visit: Yes Status: Chronic Assessment and plan: [facility] protocol Pt with new thrombocytopenia, which has reamained stable, could be due to chronic alcoholism. Will continue to monitor and consult hematology if not trending up tomorrow. Continue MVI, po thiamine, folic acid, and vitamin B complex. (2) Abdominal pain Current Visit: Yes Status: Resolved Assessment and plan: Resolved. Qualifiers: Abdominal location: generalized Qualified Code(s): R10.84 - Generalized abdominal pain (3) Cytopenia Current Visit: Yes Status: Acute Assessment and plan: Curbside consultation with oncology [employer]IC, pt can follow outpatient after discharge. Continue to monitor. Likely due to chronic alcoholism. (4) Diarrhea Current Visit: Yes Status: Acute Assessment and plan: C diff. Pt started on Vancomycin 250mg po 4x daily. Abd is soft and non-tender, BS present. Pt had abdominal pain on admission that has subsided. Vancomycin 250mg po 4x daily watch labs, vitals, and fluid balance Replete K+ Qualifiers: Diarrhea type: unspecified type Qualified Code(s): R19.7 - Diarrhea, unspecified (5) Hypokalemia Current Visit: Yes Status: Acute Assessment and plan: Continue to monitor, K rider today. Likely losses due to diarrhea/ c. diff. (6) Seizure disorder Current Visit: Yes Status: Acute Assessment and plan: No seizure activity. Suspect either to fluid volume loss from severe diarrhea, or withdrawl from ETOH. No prior history of seizures and none since. Neurology has been consulted, states that he is not convinced that the patient has epilepsy and does not recommend starting her on any antiepileptic medications. EEG was negative Seizure precautions [facility] protocol ordered for ETOH withdrawl Monitor labs and vitals (7) Occasional tremors Current Visit: Yes Status: Chronic Assessment and plan: Pt reports tremors "since ". Pt states that they have become worse recently. Neurology has been consulted, recommends follow-up with primary care after discharge for topiramate or propanolol. Pt and I discussed that she should speak with PCP at appointment on 12/30 about medications and workup for tremors. (8) HTN (hypertension) Current Visit: Yes Status: Acute Assessment and plan: Chronic. Well controlled. Continue to monitor. Pt may need increase in Lisinopril prior to discharge. Qualifiers: Hypertension type: essential hypertension Qualified Code(s): I10 - Essential (primary) hypertension (9) DVT prophylaxis Current Visit: Yes Status: Acute Assessment and plan: SQ Heparin, pt is ambulatory in the room. (10) C. difficile diarrhea Current Visit: Yes Status: Acute Assessment and plan: Vancomycin 250mg po 4 times daily. Pt continues to have diarrhea intermittently. IVF 0.9NS at 75ml/hour. Pt is eating and drinking. Pt has follow up appointment with PCP (11) Alcohol withdrawal Current Visit: Yes Status: Acute Assessment and plan: Pt at baseline per family. Pt with tremors, normal for pt. Continue CIWA protocol as ordered. If pt remains stable, will discharge tomorrow. 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 Pt is alert and awake, she answers questions appropriately. She states that she is feeling tired and weak, but is better than yesterday. Pt requests to stay another night for IVF and monitoring. She denies headache, nausea, vomiting, diaphoresis, abdominal pain, dizziness. She denies auditory or visual hallucinations. She denies suicidal or homicidal ideations. - Constitutional Vitals: Temp Pulse Resp BP Pulse Ox 97.8 F 60 15 148/98 99 12/19/17 11:00 12/19/17 11:00 12/19/17 11:00 12/19/17 11:12/19/17 11:00 General appearance: Present: cooperative, A&O X 3, pleasant, no acute distress, answers questions appropriately - Head Head exam: Present: atraumatic, normal inspection, normocephalic - Eye Eye exam: Present: normal appearance, conjuntiva pink, sclera anicteric - Neck Neck exam general surgery: Present: supple, trachea midline. Absent: lymphadenopathy, tenderness - Respiratory Respiratory exam: Present: CTAB. Absent: accessory muscle use, chest wall tenderness, rales, respiratory distress, rhonchi, wheezes - Cardiovascular Cardiovascular exam: Present: RRR, +S1, +S2. Absent: diastolic murmur, gallop, rubs, systolic murmur - GI/Abdominal GI/Abdominal exam: Present: normal bowel sounds, soft. Absent: distended, hepatomegaly, tenderness - Extremities Exam Extremities exam: Present: normal capillary refill, normal inspection, warm, radial pulses palpable and symmetrical. Absent: calf tenderness, cyanotic, pedal edema, tenderness - Neurological Exam Neurological exam: Present: alert, oriented X3, no focal deficits. Absent: facial droop, speech deficit - Skin Skin exam: Present: dry, intact, normal color, warm. Absent: rash Internal Medicine: Result - Labs CBC & Chem 7: 12/19/17 04:50 12/19/17 04:50 Labs: Short CBC 12/19/17 Range/Units 04:50 WBC 3.1 L (4.3-11.1) K/mcL Hgb 10.5 L D (11.5-15.4) g/dL Hct 30.2 L (35.3-44.9) % Plt Count 99 L (140-400) K/mcL Neutrophils # 1.2 L (1.6-8.9) K/mcL BMP 12/19/17 04:50 Sodium 140 Potassium 3.1 L Chloride 108 H Carbon Dioxide 26 BUN 16 Creatinine 0.36 L Glucose 101 Calcium 8.7 - VTE Documentation of Mechanical Device: Intermittent pneumatic compression device Consult Discharge Plan - Plan Referrals: Chela Mukherjee CNP [Advanced Practice Nurse] - 12/30/17 3:30 pm
[2017-12-19] MEDS: ALPRAZolam 1 MG TABLET PO PRN (21:29)
[2017-12-20 05:23] LABS: Basophils % 0.5 %; Eosinophils # 0.1 K/mcL (0.0-0.6); Eosinophils % 3.4 %; Hematocrit 30.9 % (35.3-44.9); Hemoglobin 11.1 g/dL (11.5-15.4); Immature Granulocytes % 0.3 % (0-4); Lymphocytes # 1.4 K/mcL (0.6-4.6); Lymphocytes % 35.4 %; Mean Corpuscular HGB Conc 35.9 g/dL (31.6-35.5); Mean Corpuscular Hemoglobin 35.5 pg (28.0-33.3); Mean Corpuscular Volume 98.7 fL (83.0-100.0); Monocytes # 0.5 K/mcL (0.0-1.3); Monocytes % 13.2 %; Neutrophils # 1.8 K/mcL (1.6-8.9); Platelet Count 110 K/mcL (140-400); Red Blood Count 3.13 M/mcL (3.82-4.97); Red Cell Distribution Width 12.7 % (11.5-14.5); Segmented Neutrophils % 47.2 %
[2017-12-20 05:44] LABS: BUN/Creatinine Ratio 30 (6-26); Blood Urea Nitrogen 9 mg/dL (6-20); Calcium 8.8 mg/dL (8.6-10.3); Carbon Dioxide 24 mEq/L (23-29); Chloride 108 mEq/L (98-107); Glucose 97 mg/dL (70-105); Magnesium 1.9 mg/dL (1.6-2.6); Osmolality,Calculated 285 (280-300); Potassium 3.6 mEq/L (3.5-5.1); Sodium 138 mEq/L (136-145); eGFR For African Americans > 60 (> 60); eGFR For Non-African Americans > 60 (> 60)
[2017-12-20] MEDS: *HR* Heparin 5,000 UNIT/ML VIAL SQ SCH (06:10)
[2017-12-20 07:21] VITALS: BP 131/89
--- NOTE | 2017-12-20 07:31 | Discharge Summary ---
- NOTES TO OUTPATIENT PROVIDER Notes to Outpatient Provider: Pt treated for c-diff as well as ETOH withdrawl/ halllucinations. Pt on Vancomycin 125mg po QID x 10 days. Please follow K+, she has been hypokalemic throughout visit and received both po and multiple K riders to return to normal. Date of Encounter: 12/20/17 Time of Encounter: 09:50 - Discharge Diagnosis (1) Alcohol abuse Priority: Primary Status: Chronic Assessment and Plan: CIWA protocol, pt has not utilized in the last 48 hours. Pt with new thrombocytopenia, which has remained stable, could be due to chronic alcoholism. Continue MVI with folic acid. (2) Abdominal pain Priority: Secondary Status: Resolved Assessment and Plan: Resolved. Pt denies. Qualifiers: Abdominal location: generalized Qualified Code(s): R10.84 - Generalized abdominal pain (3) Cytopenia Priority: Secondary Status: Acute Assessment and Plan: Curbside consultation with oncology PERFORMANCE CONSULTANT, pt can follow outpatient after discharge. Continue to monitor. Likely due to chronic alcoholism. (4) Diarrhea Priority: Secondary Status: Acute Assessment and Plan: C diff. Pt started on Vancomycin 250mg po 4x daily. Abd is soft and non-tender, BS present. Pt had abdominal pain on admission that has subsided. Vancomycin 250mg po 4x daily Replete K+ Qualifiers: Diarrhea type: unspecified type Qualified Code(s): R19.7 - Diarrhea, unspecified (5) Hypokalemia Priority: Secondary Status: Resolved Assessment and Plan: Resolved. K+ 3.6 this a.m. Resolved. Follow with PCP for monitoring. (6) Seizure disorder Priority: Secondary Status: Acute Assessment and Plan: Likely due to alcohol withdrawl. Neuro does not recommend antiepileptics or further testing. Pt has had no seizure activity since arrival. (7) Occasional tremors Priority: Secondary Status: Chronic Assessment and Plan: Pt reports tremors "since ". Pt states that they have become worse recently. Neurology has been consulted, recommends follow-up with primary care after discharge for topiramate or propanolol. Pt and I discussed that she should speak with PCP at appointment on 12/30 about medications and workup for tremors. (8) HTN (hypertension) Priority: Secondary Status: Acute Assessment and Plan: Chronic. Well controlled. Continue to monitor. Pt may need increase in Lisinopril prior to discharge. Pt now taking Lisinopril and Metoprolol. Qualifiers: Hypertension type: essential hypertension Qualified Code(s): I10 - Essential (primary) hypertension (9) DVT prophylaxis Priority: Secondary Status: Acute Assessment and Plan: SQ Heparin, pt is ambulatory in the room. (10) C. difficile diarrhea Priority: Secondary Status: Acute Assessment and Plan: Vancomycin 250mg po 4 times daily. Pt continues to have diarrhea intermittently. Pt is eating and drinking. Pt has follow up appointment with PCP 12/30. (11) Alcohol withdrawal Priority: Secondary Status: Acute Assessment and Plan: Pt at baseline per family. Pt with tremors, normal for pt. Continue home dose of benzodiazepine at home. Qualifiers: Complication of substance-induced condition: with perceptual disturbance Qualified Code(s): F10.232 - Alcohol dependence with withdrawal with perceptual disturbance Hospital course: Mrs Garvey is a 32 year old female with a history chronic alcoholism, tremors. Pt was admitted for what she thought was an aura for impending seizure. Pt reports seizure approximately 1 month ago at a hospital in [place]. She was not placed on antiepileptics and did not have neuro follow up. No seizure activity since that time. Pt also reports diarrhea for over a month, as well as tremors "since ", for which she has no treatment. Pt was evaluated by neuro here. EEG negative and pt has been stable. No further testing needed. Suggest maybe propranolol for tremors if PCP sees the need. Pt diagnosed with c-diff and is on vancomycin 125mg po x 10 days. She has a follow up with PCP in 10 days and may need refill and reevaluation. Pt also treated for ETOH withdrawl. Unclear how much pt drinks daily, she also takes benzodiazepines. She became combative, was having hallucinations and tremors worsened. She was moved to another unit and pink slipped with sitter for remainder of stay. Pt has been placed on Lisinopril for HTN in addition to BB. Currently, pt is stable and is back to baseline. No hallucinations or withdrawl symptoms. Labs are stable and she is appropriate for discharge. Discharge discussed with: patient, family - Time Spent with Patient Total time spent providing and/or coordinating discharge services: Less than 30 minutes - Discharge Medications Prescriptions: Lisinopril [Zestril] 5 mg PO DAILY #30 tablet Multivitamin with Folic Acid [Gnp One Daily Essential Tablet] 400 mcg PO DAILY # 30 tablet Vancomycin Oral Soln [Firvanq] 125 mg PO QID #100 ml Home Medications: Metoprolol [Lopressor] 25 mg PO BID 12/15/17 [History] Cetirizine HCl [All Day Allergy] 10 mg PO DAILY PRN 12/17/17 [History] Fluticasone Propionate Nasal [Flonase] 1 spr NS DAILY PRN 12/17/17 [History] Meloxicam 15 mg PO DAILY 12/17/17 [History] Lisinopril [Zestril] 5 mg PO DAILY #30 tablet 12/20/17 [Rx] Multivitamin with Folic Acid [Gnp One Daily Essential Tablet] 400 mcg PO DAILY # 30 tablet 12/20/17 [Rx] Vancomycin Oral Soln [Firvanq] 125 mg PO QID #100 ml 12/20/17 [Rx] Allergies/Adverse Reactions: 3 Allergy/AdvReac Type Severity Reaction Status Date / Time Hydromorphone [From Dilaudid] AdvReac Hallucinati Verified 12/16/17 18:32 ng Date of admission: 12/16/17 17:21 Primary care physician: Concepcion Correa CNP Consults: 12/17/17 13:05 Consult to Neurology [CONS] Routine Consulting Provider: Neurology [facility] Reason for Consult: Pt with 4 week history of seizures that occurred with severe diarrhea. Pt was hospitalized for this, no neuro workup during that [place] state. Pt also reports that she has had tremors "since ", also without neuro workup. She states that she was sent by [facility] for neuro evaluation. Time Notified: 12:45 Call Completed: Yes 12/17/17 16:32 Consult to Interpret Exam [CONS] Routine Consulting Provider: Fernando Monahan Consult to Interpret Exam: Interpret EEG 12/18/17 14:43 Consult to Psychiatry [CONS] Routine Consulting Provider: Psychiatry [facility] Reason consult: Lolita slip on chart Other reason and/or additional details: Pt withdrawing from ETOH, having visual hallucinations. Pt pink slipped by power plant inspector overnight due to pt being altered and trying to leave AMA. Lolita Slip initiated date and time: Lolita slipped overnight 12/17-12/18. Time Notified: 14:45 Call Completed: Yes Discharging clinician: Leslie Tamayo Anticipated date of discharge: 12/20/17 - Constitutional Vitals: Temp Pulse Resp BP Pulse Ox 98.0 F 60 14 131/89 99 12/20/17 07:18 12/20/17 07:18 12/20/17 07:18 12/20/17 07:18 12/20/17 07:18 General appearance: Present: cooperative, A&O X 3, pleasant, no acute distress, answers questions appropriately - Head Head exam: Present: atraumatic, normal inspection, normocephalic - Eye Eye exam: Present: normal appearance, conjuntiva pink, sclera anicteric - Neck Neck exam general surgery: Present: supple, trachea midline. Absent: lymphadenopathy, tenderness - Respiratory Respiratory exam: Present: CTAB. Absent: accessory muscle use, chest wall tenderness, rales, respiratory distress, rhonchi, wheezes - Cardiovascular Cardiovascular exam: Present: RRR, +S1, +S2. Absent: diastolic murmur, gallop, rubs, systolic murmur - GI/Abdominal GI/Abdominal exam: Present: hyperactive bowel sounds, soft. Absent: distended, hepatomegaly, mass, tenderness - Extremities Exam Extremities exam: Present: normal capillary refill, normal inspection, warm, radial pulses palpable and symmetrical. Absent: calf tenderness, cyanotic, pedal edema, tenderness - Neurological Exam Neurological exam: Present: alert, oriented X3, no focal deficits. Absent: facial droop, speech deficit - Skin Skin exam: Present: dry, intact, normal color, warm. Absent: rash - Patient Status Disposition: Home, Self-Care Condition: Good Functional capacity at discharge: independent ambulation Overall status at discharge: patient is not back to baseline - Discharge Instructions Follow Up With: Chela Mukherjee CNP [Advanced Practice Nurse] - 12/30/17 3:30 pm Additional Instructions: Follow up with Lilian Mukherjee as scheduled. Take your medications as directed. Stop drinking and seek help for alcohol cessation in a treatment plan or program. Return to the ER as needed for any other problem or concerns or if your symptoms return or worsen. Take your antibiotic as written and take it until it is completely gone. Return to your normal diet and activities as tolerated. Resume your other home medications - Diet and Activity Activity: increase activity as tolerated Diet: advance to your usual diet - VTE Documentation of Mechanical Device: Intermittent pneumatic compression device
[2017-12-20] MEDS: Magnesium Oxide 400 MG TABLET PO SCH (08:08)
[2017-12-20] MEDS: Vitamin B Complex/Vit C/Vit E 1 EACH TABLET PO SCH (08:08)
[2017-12-20] MEDS: Thiamine (B-1) 100 MG TABLET PO SCH (08:08)
[2017-12-20] MEDS: Folic Acid 1 MG TABLET PO SCH (08:08)
[2017-12-20] MEDS: Vancomycin Oral Soln 125 MG/2.5 ML UDC PO SCH (08:09)
== END 2017-12-20 10:51 | disposition home or self-care (01) ==
LOC: 3BNU → 2NNU 12-18 02:27
PROVIDERS: ADMIT Student in an Organized Health Care Education/Training Program; ATTEND Student in an Organized Health Care Education/Training Program

== ENCOUNTER 2017-12-31 09:36 | Inpatient (IN) ==
[2017-12-31] MEDS ORDERED: 0.9 % Sodium Chloride 1,000 ML IVC ONE (09:44)
[2017-12-31] MEDS ORDERED: *HR* LORazepam 2 MG/ML VIAL IVP ONE ×2 (09:46→13:46)
[2017-12-31 10:03] LABS: Basophils % 0.5 %; Eosinophils # 0.2 K/mcL (0.0-0.6); Eosinophils % 3.8 %; Hematocrit 34.7 % (35.3-44.9); Hemoglobin 12.4 g/dL (11.5-15.4); Immature Granulocytes % 0.2 % (0-4); Lymphocytes # 1.7 K/mcL (0.6-4.6); Lymphocytes % 39.9 %; Mean Corpuscular HGB Conc 35.7 g/dL (31.6-35.5); Mean Corpuscular Hemoglobin 34.5 pg (28.0-33.3); Mean Corpuscular Volume 96.7 fL (83.0-100.0); Mean Platelet Volume 11.6 fL (9.4-12.4); Monocytes # 0.3 K/mcL (0.0-1.3); Monocytes % 7.1 %; Neutrophils # 2.1 K/mcL (1.6-8.9); Platelet Count 224 K/mcL (140-400); Red Blood Count 3.59 M/mcL (3.82-4.97); Red Cell Distribution Width 12.2 % (11.5-14.5); Segmented Neutrophils % 48.5 %
[2017-12-31 10:07] LABS: INR 1.1
[2017-12-31 10:10] LABS: Activated Partial Thrombo Time 29.4 Seconds (26.0-36.0)
[2017-12-31] MEDS ORDERED: Potassium Effervescent 25 MEQ TABLET.EFF PO ONE (10:10)
[2017-12-31] MEDS ORDERED: *HR* HYDROcodone/Acet 5/325 mg TABLET PO ONE (10:16)
[2017-12-31 10:17] LABS: BUN/Creatinine Ratio 23 (6-26); Blood Urea Nitrogen 10 mg/dL (6-20); Calcium 8.8 mg/dL (8.6-10.3); Carbon Dioxide 24 mEq/L (23-29); Chloride 104 mEq/L (98-107); Glucose 98 mg/dL (70-105); Osmolality,Calculated 285 (280-300); Potassium 3.7 mEq/L (3.5-5.1); Sodium 138 mEq/L (136-145); eGFR For Non-African Americans > 60 (> 60)
[2017-12-31] MEDS ORDERED: Ondansetron 4 MG/2 ML VIAL IVP ONE (10:17)
[2017-12-31 10:29] LABS: Troponin I < 0.03 ng/mL (< 0.04)
[2017-12-31 10:38] LABS: Bilirubin,Urine Small (Negative); Blood,Urine Negative (Negative); Clarity,Urine Cloudy (Clear); Color,Urine Orange (Yellow); Glucose,Urine (UA) Normal (Normal); Ketones,Urine Trace mg/dL (Negative); Leukocyte Esterase,Urine Small (Negative); Nitrite,Urine Positive (Negative); Protein,Urine Trace mg/dL (Neg-Trace); Specific Gravity,Urine 1.026 (1.010-1.025); Urobilinogen,Urine Normal (Normal)
[2017-12-31 10:41] LABS: Bacteria,Urine None Seen per hpf (None-Few); Hyaline Casts,Urine Few per lpf (None-Few); Squamous Epithelial Cell,Urine Many per lpf (None-Few)
[2017-12-31 10:43] LABS: Thyroid Stimulating Hormone 6.797 mcIU/mL (0.340-5.600)
[2017-12-31 10:52] LABS: RBC,Urine 0-3 per hpf (0-3)
--- NOTE | 2017-12-31 11:11 | Emergency Department Note ---
Disposition Clinical Impression: Abdominal pain Qualifiers: Abdominal location: generalized Qualified Code(s): R10.84 - Generalized abdominal pain Alcohol withdrawal Qualifiers: Complication of substance-induced condition: with delirium Qualified Code(s): F10.231 - Alcohol dependence with withdrawal delirium Disposition: Admitted As Inpatient Condition: Undetermined Referrals: Chela Mukherjee EMBALMER ASSISTANT [Advanced Practice Nurse] - Time of Disposition: 13:13 Abdominal Pain HPI - General Chief Complaint: ED Abdominal Pain Stated Complaint: Low Potasium/CDIFF Time Seen by Provider: 12/31/17 09:43 Source: patient, EMS Mode of arrival: EMS Limitations: no limitations Nursing Notes Reviewed: Yes Vital Signs Reviewed: Yes - History of Present Illness Pt Subjective Complaint: abdominal pain, other (leg cramps) Consistency: intermittent Location: diffuse Pain Severity: moderate Pain Scale: 6 Quality: cramping Radiation: none Migration to: no migration Improves with: nothing Worsens with: nothing Context: history of similar episodes Associated symptoms: Reports: diarrhea. Denies: vomiting, fever, chills, constipation, dysuria, hematemesis, hematochezia, melena, hematuria, anorexia, syncope Treatments prior to arrival: other (started Flagyl two days ago for Cdiff colitis b/c her insurance would not pay for po Vanc tablets. Her PCP called in the prescription. ) - Related Data Home Medications Medication Instructions Recorded Confirmed Metoprolol [Lopressor] 25 mg PO BID 12/15/17 12/17/17 Cetirizine HCl [All Day Allergy] 10 mg PO DAILY PRN 12/17/17 12/17/17 Fluticasone Propionate Nasal 1 spr NS DAILY PRN 12/17/17 12/17/17 [Flonase] Meloxicam 15 mg PO DAILY 12/17/17 12/17/17 Previous Rx's Medication Instructions Recorded Lisinopril [Zestril] 5 mg PO DAILY #30 tablet 12/20/17 Multivitamin with Folic Acid [Gnp 400 mcg PO DAILY #30 tablet 12/20/17 One Daily Essential Tablet] Vancomycin Oral Soln [Firvanq] 125 mg PO QID #100 ml 12/20/17 Allergies Allergy/AdvReac Type Severity Reaction Status Date / Time Hydromorphone [From Dilaudid] AdvReac Hallucinati Verified 12/16/17 18:32 ng lorazepam [From Ativan] AdvReac Hallucinati Verified 12/31/17 10:07 ng All systems ED: reviewed and negative except as stated. Review of Systems: As Per HPI Constitutional: Denies: fever, chills, weakness, weight change, night sweats Eyes: Denies: vision change Cardiovascular: Denies: chest pain, palpitations, dyspnea on exertion, orthopnea , edema, syncope Respiratory: Denies: cough, dyspnea, wheezes Gastrointestinal: Reports: as per HPI, abdominal pain, nausea, diarrhea. 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 Absent: scleral icterus, conjunctival injection, periorbital swelling - ENT ENT exam: mucous membranes dry - Neck Neck exam: Present: normal inspection, full ROM, trachea midline. Absent: tenderness, meningismus - Chest Chest inspection: Present: normal inspection - Respiratory Respiratory exam: Present: normal lung sounds bilaterally. Absent: respiratory distress - Cardiovascular Cardiovascular exam: Present: regular rate, normal rhythm, normal heart sounds. Absent: systolic murmur, diastolic murmur - Abdominal Exam Abdominal exam: Present: soft, Non-Tender, normal bowel sounds. Absent: distention, guarding, rebound, rigidity, organomegaly, mass, bruit, pulsatile mass - Extremities Exam Extremities exam: Present: normal inspection, full ROM, normal capillary refill. Absent: tenderness, pedal edema, joint swelling - Expanded Lower Extremity Exam Gait: observed and normal - Back Exam Back exam: Present: normal inspection, full ROM. Absent: tenderness, CVA tenderness (R), CVA tenderness (L) - Neurological Exam Neurological exam: Present: alert, oriented X3, CN II-XII intact, normal gait - Psychiatric Psychiatric exam: Present: normal affect, normal mood - Skin Skin exam: Present: warm, dry, intact, normal color Course Course Narrative: Patient presents for evaluation of cramps in legs and abdominal pain. She has a history of C. difficile colitis diagnosed a couple weeks ago at [facility]. She has had diarrhea for several months and in October she had an episode of severe hypokalemia that required a prolonged hospitalization. She had an episode of cramping in her hands and feet a few weeks ago that prompted her visit to [facility] in [place]. She was transferred here and admitted. During her stay here. She was diagnosed with C. difficile toxin. Her CT of the abdomen and pelvis, however, did not show significant inflammation of the colon or any acute abnormalities. The patient was concerned that her potassium was a lateral because of the cramps in her legs, so she came in today for evaluation. She is a and O 3 with normal vitals, no fever, no carpal pedal spasms, definite anxiety, but no distress. Abdomen is nontender when distracted. She is tolerating by mouth fluids. Labs show slight improvement in her pancytopenia. Today, her platelet count is almost normal and her hematocrit is normal. White count is 4.9 which is also improved. She is planning to follow- up with [facility] for further evaluation of the pancytopenia. She also is established with a primary care provider at [facility]. Patient has had trouble getting the prescription, vancomycin due to financial constraints. Dr. Danielle recommends writing a prescription for IV vancomycin to be taken by mouth. Pharmacy contacted for compounding information. Case discussed with Dr. danielle. He has had [id number] time with the patient and agrees with the assessment and plan. He recommends outpatient treatment with by mouth vancomycin. - Reevaluation(s) Reevaluation #1: Discussed the plan for outpatient treatment with the patient. She now states that she needs to be admitted to the hospital for alcohol withdrawal. She has a tremor and states that she has not had alcohol in two days. She states that she has been alcoholic for three years. She describes having withdrawal symptoms last month and had significant seizures. She states that she no longer wishes to be an alcoholic, especially since she is unable to drink given the current colitis. This new plan was discussed with Dr. Danielle. He is in agreement with the plan. Hospitalist has been paged. Patient accepted for admission. Time: 13:49 - Consultations Consultation #1: Discussed the plan with the pharmacist. He states that the pharmacy can compound a liquid form that will be more affordable for the patient. Time: 13:09 Vital Signs Temperature 98.1 F 12/31/17 09:45 Pulse Rate 70 12/31/17 09:45 Respiratory Rate 15 12/31/17 09:45 Blood Pressure 122/88 12/31/17 09:45 O2 Sat by Pulse Oximetry 99 12/31/17 09:45 Temperature 98.1 F 12/31/17 09:55 Pulse Rate 72 12/31/17 11:54 Respiratory Rate 16 12/31/17 11:54 Blood Pressure 124/87 12/31/17 11:54 O2 Sat by Pulse Oximetry 97 12/31/17 11:54 Oxygen Delivery Oxygen Delivery Room Air Abdominal Pain - Lab Data Result diagrams: 12/31/17 09:50 12/31/17 09:50 Lab Results 12/31/17 12/31/17 12/31/17 Range/Units 09:50 09:50 09:50 WBC 4.2 L (4.3-11.1) K/mcL RBC 3.59 L (3.82-4.97) M/mcL Hgb 12.4 (11.5-15.4) g/dL Hct 34.7 L (35.3-44.9) % MCV 96.7 (83.0-100.0) fL MCH 34.5 H (28.0-33.3) pg MCHC 35.7 H (31.6-35.5) g/dL RDW 12.2 (11.5-14.5) % Plt Count 224 (140-400) K/mcL MPV 11.6 (9.4-12.4) fL Immature Gran % 0.2 (0-4) % Seg Neutrophils % 48.5 % Lymphocytes % 39.9 % Monocytes % 7.1 % Eosinophils % 3.8 % Basophils % 0.5 % Neutrophils # 2.1 (1.6-8.9) K/mcL Lymphocytes # 1.7 (0.6-4.6) K/mcL Monocytes # 0.3 (0.0-1.3) K/mcL Eosinophils # 0.2 (0.0-0.6) K/mcL Basophils # 0.0 (0.0-0.2) K/mcL PT 12.0 (9.4-12.1) Seconds INR 1.1 APTT 29.4 (26.0-36.0) Seconds Sodium 138 (136-145) mEq/L Potassium 3.7 (3.5-5.1) mEq/L Chloride 104 (98-107) mEq/L Carbon Dioxide 24 (23-29) mEq/L BUN 10 (6-20) mg/dL Creatinine 0.43 L (0.60-1.20) mg/dL Est GFR ( Amer) > 60 (> 60) Est GFR (Non-Af Amer) > 60 (> 60) BUN/Creatinine Ratio 23 (6-26) Glucose 98 (70-105) mg/dL Calculated Osmolality 285 (280-300) Calcium 8.8 (8.6-10.3) mg/dL Magnesium (1.6-2.6) mg/dL Troponin I < 0.03 (< 0.04) ng/mL TSH 6.797 H (0.340-5.600) mcIU/mL Free T4 0.84 (0.70-2.00) ng/dl Urine Color (Yellow) Urine Clarity (Clear) Urine pH (5.0-8.0) pH Units Ur Specific [place] (1.010-1.025) Urine Protein (Neg-Trace) mg/dL Urine Glucose (UA) (Normal) mg/dL Urine Ketones (Negative) mg/dL Urine Blood (Negative) Urine Nitrite (Negative) Urine Bilirubin (Negative) Urine Urobilinogen (Normal) mg/dL Ur Leukocyte Esterase (Negative) Urine Microscopic RBC (0-3) per hpf Urine Microscopic WBC (0-3) per hpf Ur Squamous Epith Cells (None-Few) per lpf Urine Bacteria (None-Few) per hpf Hyaline Casts (None-Few) per lpf Ur Culture Indicated? (NO) 12/31/17 12/31/17 Range/Units 09:50 10:17 WBC (4.3-11.1) K/mcL RBC (3.82-4.97) M/mcL Hgb (11.5-15.4) g/dL Hct (35.3-44.9) % MCV (83.0-100.0) fL MCH (28.0-33.3) pg MCHC (31.6-35.5) g/dL RDW (11.5-14.5) % Plt Count (140-400) K/mcL MPV (9.4-12.4) fL Immature Gran % (0-4) % Seg Neutrophils % % Lymphocytes % % Monocytes % % Eosinophils % % Basophils % % Neutrophils # (1.6-8.9) K/mcL Lymphocytes # (0.6-4.6) K/mcL Monocytes # (0.0-1.3) K/mcL Eosinophils # (0.0-0.6) K/mcL Basophils # (0.0-0.2) K/mcL PT (9.4-12.1) Seconds INR APTT (26.0-36.0) Seconds Sodium (136-145) mEq/L Potassium (3.5-5.1) mEq/L Chloride (98-107) mEq/L Carbon Dioxide (23-29) mEq/L BUN (6-20) mg/dL Creatinine (0.60-1.20) mg/dL Est GFR ( Amer) (> 60) Est GFR (Non-Af Amer) (> 60) BUN/Creatinine Ratio (6-26) Glucose (70-105) mg/dL Calculated Osmolality (280-300) Calcium (8.6-10.3) mg/dL Magnesium 1.7 (1.6-2.6) mg/dL Troponin I (< 0.04) ng/mL TSH (0.340-5.600) mcIU/mL Free T4 (0.70-2.00) ng/dl Urine Color [facility] A (Yellow) Urine Clarity Cloudy A (Clear) Urine pH 6.0 (5.0-8.0) pH Units Ur Specific [place] 1.026 H (1.010-1.025) Urine Protein Trace (Neg-Trace) mg/dL Urine Glucose (UA) Normal (Normal) mg/dL Urine Ketones Trace H (Negative) mg/dL Urine Blood Negative (Negative) Urine Nitrite Positive A (Negative) Urine Bilirubin Small H (Negative) Urine Urobilinogen Normal (Normal) mg/dL Ur Leukocyte Esterase Small H (Negative) Urine Microscopic RBC 0-3 (0-3) per hpf Urine Microscopic WBC 5-15 H (0-3) per hpf Ur Squamous Epith Cells Many H (None-Few) per lpf Urine Bacteria None Seen (None-Few) per hpf Hyaline Casts Few (None-Few) per lpf Ur Culture Indicated? NO. A (NO)
[2017-12-31] MEDS ORDERED: Metoclopramide 10 MG/2 ML VIAL IVP ONE (12:05)
[2017-12-31] MEDS ORDERED: diazePAM 10 MG/2 ML SYRINGE IVP ONE ×2 (14:03→22:58)
[2017-12-31] MEDS ORDERED: Naloxone 0.4 MG/ML INJ IVP PRN (16:59)
[2017-12-31] MEDS ORDERED: *HR* LORazepam 2 MG/ML VIAL IVP PRN (16:59)
[2017-12-31] MEDS ORDERED: *HR* Promethazine 25 MG/ML VIAL IVP PRN (16:59)
[2017-12-31] MEDS ORDERED: Loratadine 10 MG TABLET PO PRN (17:09)
--- NOTE | 2017-12-31 18:18 | Emergency Department Note ---
Disposition Clinical Impression: Abdominal pain Qualifiers: Abdominal location: generalized Qualified Code(s): R10.84 - Generalized abdominal pain Alcohol withdrawal Qualifiers: Complication of substance-induced condition: with delirium Qualified Code(s): F10.231 - Alcohol dependence with withdrawal delirium Disposition: Admitted As Inpatient Condition: Undetermined Time of Disposition: 18:18 General Adult HPI - General Chief complaint: ED Abdominal Pain Stated complaint: Low Potasium/CDIFF Time Seen by Provider: 12/31/17 09:43 Source: patient, EMS Mode of arrival: EMS Limitations: no limitations - History of Present Illness Pain Scale: 7 - Related Data Home Medications Medication Instructions Recorded Confirmed Metoprolol [Lopressor] 25 mg PO BID 12/15/17 12/31/17 Cetirizine HCl [All Day Allergy] 10 mg PO DAILY PRN 12/17/17 12/31/17 Fluticasone Propionate Nasal 1 spr NS DAILY PRN 12/17/17 12/31/17 [Flonase] Meloxicam 15 mg PO DAILY 12/17/17 12/31/17 Previous Rx's Medication Instructions Recorded Lisinopril [Zestril] 5 mg PO DAILY #30 tablet 12/20/17 Multivitamin with Folic Acid [Gnp 400 mcg PO DAILY #30 tablet 12/20/17 One Daily Essential Tablet] Allergies Allergy/AdvReac Type Severity Reaction Status Date / Time Hydromorphone [From Dilaudid] AdvReac Hallucinati Verified 12/31/17 14:53 ng lorazepam [From Ativan] AdvReac Hallucinati Verified 12/31/17 14:53 ng Constitutional: Denies: fever, chills, weakness, weight change, night sweats Eyes: Denies: vision change Cardiovascular: Denies: chest pain, palpitations, dyspnea on exertion, orthopnea , edema, syncope Respiratory: Denies: cough, dyspnea, wheezes Gastrointestinal: Reports: as per HPI, abdominal pain, nausea, diarrhea. 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, other - Social History Smoking Status: Never smoker Smokeless Tobacco Status: No Alcohol use: Reports: heavy Drug use: Reports: none Physical Exam - General Limitations: no limitations General appearance: alert, in no apparent distress, anxious Course Vital Signs Temperature 98.1 F 12/31/17 09:45 Pulse Rate 70 12/31/17 09:45 Respiratory Rate 15 12/31/17 09:45 Blood Pressure 122/88 12/31/17 09:45 O2 Sat by Pulse Oximetry 99 12/31/17 09:45 Temperature 99.4 F 12/31/17 17:26 Pulse Rate 75 12/31/17 17:26 Respiratory Rate 17 12/31/17 17:26 Blood Pressure 149/96 12/31/17 17:26 O2 Sat by Pulse Oximetry 98 12/31/17 17:26 Oxygen Delivery Oxygen Delivery Room Air Medical Decision Making - Lab Data Result diagrams: 12/31/17 09:50 12/31/17 09:50 Lab Results 12/31/17 12/31/17 12/31/17 Range/Units 09:50 09:50 09:50 WBC 4.2 L (4.3-11.1) K/mcL RBC 3.59 L (3.82-4.97) M/mcL Hgb 12.4 (11.5-15.4) g/dL Hct 34.7 L (35.3-44.9) % MCV 96.7 (83.0-100.0) fL MCH 34.5 H (28.0-33.3) pg MCHC 35.7 H (31.6-35.5) g/dL RDW 12.2 (11.5-14.5) % Plt Count 224 (140-400) K/mcL MPV 11.6 (9.4-12.4) fL Immature Gran % 0.2 (0-4) % Seg Neutrophils % 48.5 % Lymphocytes % 39.9 % Monocytes % 7.1 % Eosinophils % 3.8 % Basophils % 0.5 % Neutrophils # 2.1 (1.6-8.9) K/mcL Lymphocytes # 1.7 (0.6-4.6) K/mcL Monocytes # 0.3 (0.0-1.3) K/mcL Eosinophils # 0.2 (0.0-0.6) K/mcL Basophils # 0.0 (0.0-0.2) K/mcL PT 12.0 (9.4-12.1) Seconds INR 1.1 APTT 29.4 (26.0-36.0) Seconds Sodium 138 (136-145) mEq/L Potassium 3.7 (3.5-5.1) mEq/L Chloride 104 (98-107) mEq/L Carbon Dioxide 24 (23-29) mEq/L BUN 10 (6-20) mg/dL Creatinine 0.43 L (0.60-1.20) mg/dL Est GFR ( Amer) > 60 (> 60) Est GFR (Non-Af Amer) > 60 (> 60) BUN/Creatinine Ratio 23 (6-26) Glucose 98 (70-105) mg/dL Calculated Osmolality 285 (280-300) Calcium 8.8 (8.6-10.3) mg/dL Magnesium (1.6-2.6) mg/dL Troponin I < 0.03 (< 0.04) ng/mL TSH 6.797 H (0.340-5.600) mcIU/mL Free T4 0.84 (0.70-2.00) ng/dl Urine Color (Yellow) Urine Clarity (Clear) Urine pH (5.0-8.0) pH Units Ur Specific Cosby (1.010-1.025) Urine Protein (Neg-Trace) mg/dL Urine Glucose (UA) (Normal) mg/dL Urine Ketones (Negative) mg/dL Urine Blood (Negative) Urine Nitrite (Negative) Urine Bilirubin (Negative) Urine Urobilinogen (Normal) mg/dL Ur Leukocyte Esterase (Negative) Urine Microscopic RBC (0-3) per hpf Urine Microscopic WBC (0-3) per hpf Ur Squamous Epith Cells (None-Few) per lpf Urine Bacteria (None-Few) per hpf Hyaline Casts (None-Few) per lpf Ur Culture Indicated? (NO) 12/31/17 12/31/17 Range/Units 09:50 10:17 WBC (4.3-11.1) K/mcL RBC (3.82-4.97) M/mcL Hgb (11.5-15.4) g/dL Hct (35.3-44.9) % MCV (83.0-100.0) fL MCH (28.0-33.3) pg MCHC (31.6-35.5) g/dL RDW (11.5-14.5) % Plt Count (140-400) K/mcL MPV (9.4-12.4) fL Immature Gran % (0-4) % Seg Neutrophils % % Lymphocytes % % Monocytes % % Eosinophils % % Basophils % % Neutrophils # (1.6-8.9) K/mcL Lymphocytes # (0.6-4.6) K/mcL Monocytes # (0.0-1.3) K/mcL Eosinophils # (0.0-0.6) K/mcL Basophils # (0.0-0.2) K/mcL PT (9.4-12.1) Seconds INR APTT (26.0-36.0) Seconds Sodium (136-145) mEq/L Potassium (3.5-5.1) mEq/L Chloride (98-107) mEq/L Carbon Dioxide (23-29) mEq/L BUN (6-20) mg/dL Creatinine (0.60-1.20) mg/dL Est GFR ( Amer) (> 60) Est GFR (Non-Af Amer) (> 60) BUN/Creatinine Ratio (6-26) Glucose (70-105) mg/dL Calculated Osmolality (280-300) Calcium (8.6-10.3) mg/dL Magnesium 1.7 (1.6-2.6) mg/dL Troponin I (< 0.04) ng/mL TSH (0.340-5.600) mcIU/mL Free T4 (0.70-2.00) ng/dl Urine Color Mason A (Yellow) Urine Clarity Cloudy A (Clear) Urine pH 6.0 (5.0-8.0) pH Units Ur Specific Cosby 1.026 H (1.010-1.025) Urine Protein Trace (Neg-Trace) mg/dL Urine Glucose (UA) Normal (Normal) mg/dL Urine Ketones Trace H (Negative) mg/dL Urine Blood Negative (Negative) Urine Nitrite Positive A (Negative) Urine Bilirubin Small H (Negative) Urine Urobilinogen Normal (Normal) mg/dL Ur Leukocyte Esterase Small H (Negative) Urine Microscopic RBC 0-3 (0-3) per hpf Urine Microscopic WBC 5-15 H (0-3) per hpf Ur Squamous Epith Cells Many H (None-Few) per lpf Urine Bacteria None Seen (None-Few) per hpf Hyaline Casts Few (None-Few) per lpf Ur Culture Indicated? NO. A (NO) Attestation Statement - Attestation Attestation: I separately examined this patient, discussed concerns and her evaluation with the mid-level provider, and agree with her treatment and admission to the hospital.
[2017-12-31] MEDS: Vancomycin Oral Soln 125 MG/2.5 ML UDC PO SCH ×2 (18:28→21:06)
--- NOTE | 2017-12-31 18:35 | Internal Med History&Physical ---
Date of Encounter: 12/31/17 Time of Encounter: 16:00 Internal Medicine - H&P: HPI Chief complaint: diarrhea; etoh withdrawal Admitted From: Emergency Dept Plans for Post Hospital Care: Home History of present illness: Ms. Garvey is a 32 year old female who presents with protracted diarrhea, abdominal pain and cramping, poor appetite, and low-grade fevers. She was recently hospitalized for C. difficile colitis and improved initially with treatment. However, she was unable to have her medications filled after discharge due to lack of insurance coverage. She has not had any antibiotics for her C. difficile colitis until yesterday when her PCP prescribed metronidazole. She took 4 pills of metronidazole and came to the ER today due to worsening symptoms. Additionally, she is trying to quit alcohol drinking and is going through withdrawal. She drinks anywhere between 4-15 shots of hard liquor every day. Her last alcohol intake was 2 days ago. She is actively tremulous, nauseated, and quite anxious. She denies any hallucinations or delusions presently. She states that she is adamant on alcohol abstinence now. Past Med Surg Social Fam HX - Past Medical History Attestation: Yes The following information was validated with the patient. Source: patient, old records reviewed Medical history: hypertension, kidney stones, liver disease Additional medical history: gastric surgery. alcoholism Psychiatric history: anxiety - Past Surgical History Surgical History: cholecystectomy Additional surgical history: gastric sleeve 2014. D&C x 2. UTERINE ABLAITION - Social History Smoking Status: Never smoker Smokeless Tobacco Status: No Alcohol use: heavy Drug use: none Current living situation: Home - Independent Activity Level: Independent ambulation Recent Out of Country Travel Within the Last 8 Weeks: No - Family History Mother Living Status: Still Living Hx Family Cardiac Disorders: Yes (HTN, [place]) Hx Family GI Disorders: No Father Hx Family GI Disorders: No Internal Medicine - H&P: Meds Metoprolol [Lopressor] 25 mg PO BID 12/15/17 [History] Cetirizine HCl [All Day Allergy] 10 mg PO DAILY PRN 12/17/17 [History] Fluticasone Propionate Nasal [Flonase] 1 spr NS DAILY PRN 12/17/17 [History] Meloxicam 15 mg PO DAILY 12/17/17 [History] Lisinopril [Zestril] 5 mg PO DAILY #30 tablet 12/20/17 [Rx] Multivitamin with Folic Acid [Gnp One Daily Essential Tablet] 400 mcg PO DAILY # 30 tablet 12/20/17 [Rx] 3 Allergy/AdvReac Type Severity Reaction Status Date / Time Hydromorphone [From Dilaudid] AdvReac Hallucinati Verified 12/31/17 14:53 ng lorazepam [From Ativan] AdvReac Hallucinati Verified 12/31/17 14:53 ng - Constitutional Constitutional: fever(s), no chills, no night sweats - EENT Eyes: no blurry vision, no change in vision Ears: no ear pain, no tinnitus Nose, mouth and throat: no nasal congestion, no sinus pressure, no sore throat - Cardiovascular Cardiovascular ROS IM: no chest pain, no dyspnea - Respiratory Respiratory: no cough, no chest congestion, no excessive phlegm production, no change in phlegm color - Gastrointestinal Gastrointestinal: bloating, cramping, diarrhea, nausea, no hematemesis, no hematochezia, no melena, no vomiting - Genitourinary Genitourinary: no dysuria, no flank pain, no hematuria - Musculoskeletal Musculoskeletal ROS IM: no arthralgias, no back pain - Integumentary Integumentary IM: no rash, no jaundice - Neurological Neurological ROS: paresthesias, tremor(s), no behavioral changes, no dizziness, no focal weakness, no frequent falls, no headache(s) - Psychiatric Psychiatric: anxiety, no depression, no hallucinations - Endocrine Endocrine IM: no polydipsia, no polyuria - Hematologic/Lymphatic Hematologic/Lymphatic: easy bruising - Allergic/Immunologic Allergic/Immunologic: no wheezing, no GI upset with certain foods - Constitutional Vitals: Temp Pulse Resp BP Pulse Ox 99.4 F 75 17 149/96 98 12/31/17 17:26 12/31/17 17:26 12/31/17 17:26 12/31/17 17:26 12/31/17 17:26 General appearance: Present: cooperative, mild distress, A&O X 3, pleasant, answers questions appropriately Exam: jittery; anxious; mildly nauseated - Head Head exam: Present: atraumatic, normal inspection - Eye Eye exam: Present: EOMI, PERRL. Absent: scleral icterus Pupils: Present: normal accommodation - ENT ENT exam: Present: mucous membranes dry, normal exam, normal oropharynx - Neck Neck exam general surgery: Present: supple. Absent: lymphadenopathy, tenderness , nuchal rigidity, thyromegaly - Respiratory Respiratory exam: Present: CTAB. Absent: chest wall tenderness, rales, respiratory distress, rhonchi, wheezes - Cardiovascular Cardiovascular exam: Present: RRR, +S1, +S2. Absent: diastolic murmur, systolic murmur - GI/Abdominal GI/Abdominal exam: Present: distended, hyperactive bowel sounds, soft, tenderness (mild diffuse), no peritoneal signs. Absent: guarding, hepatomegaly , mass, rebound, splenomegaly - Extremities Exam Extremities exam: Present: full ROM, normal capillary refill, warm, radial pulses palpable and symmetrical. Absent: calf tenderness, joint swelling, pedal edema, tenderness - Back Exam Back exam: Absent: CVA tenderness (L), CVA tenderness (R) - Neurological Exam Neurological exam: Present: alert, CN II-XII intact, oriented X3, no focal deficits Additional comments: jittery; anxious - Psychiatric Psychiatric exam: Present: anxious. Absent: depressed - Skin Skin exam: Present: dry, warm. Absent: rash Internal Med - H&P Results - Labs CBC & Chem 7: 12/31/17 09:50 12/31/17 09:50 - Diagnostic Studies Chest x-ray Status: image reviewed by me (negative) - Assessment and plan (1) Clostridium difficile colitis Current Visit: Yes Status: Acute Assessment and plan: 1. Patient failed and also did not have adequate outpatient treatment. This is also compounded by alcohol abuse. 2. Will treat with PO Flagyl and PO Vancomycin. 3. Will trend WBC and follow clinically. Clinically, her abdominal exam is non -surgical and relatively benign. However, she will need serial daily exams and close monitoring. 4. Will add Lactobacillus to her oral regimen. (2) Alcohol withdrawal Current Visit: Yes Status: Acute Assessment and plan: 1. Patient is actively withdrawing from alcohol clinically. 2. Will treat with Librium PO scheduled as well as CIWA protocol. 3. Will add Thiamine, Folate, and B12 to her IVF daily. 4. Monitor per CIWA and place on telemetry for concerns of worsening withdrawal. Qualifiers: Complication of substance-induced condition: with unspecified complication Qualified Code(s): F10.239 - Alcohol dependence with withdrawal, unspecified (3) DVT prophylaxis Current Visit: Yes Status: Acute Assessment and plan: 1. Heparin SQ.
[2017-12-31] MEDS: 0.9 % Sodium Chloride w KCl 20 MEQ/1,000 ML MLS IVC SCH (19:07)
[2017-12-31] MEDS: Thiamine (B-1) 100 MG, Folic Acid 1 MG, MVI, adult with vitamin K 10 ML in 0.9 % Sodi... IVPB SCH (19:07)
[2017-12-31] MEDS: *HR* Heparin 5,000 UNIT/ML VIAL SQ SCH (19:07)
[2017-12-31] MEDS: *HR* HYDROcodone/Acet 5/325 mg TABLET PO PRN (20:49)
[2017-12-31] MEDS ORDERED: metroNIDAZOLE 500 MG TABLET PO SCH (21:00)
[2018-01-01] MEDS: *HR* HYDROcodone/Acet 5/325 mg TABLET PO PRN ×2 (02:45→22:27)
[2018-01-01] MEDS: 0.9 % Sodium Chloride w KCl 20 MEQ/1,000 ML MLS IVC SCH (03:17)
[2018-01-01] MEDS: *HR* Heparin 5,000 UNIT/ML VIAL SQ SCH ×2 (04:58→15:16)
[2018-01-01 05:03] LABS: Basophils % 0.4 %; Eosinophils # 0.1 K/mcL (0.0-0.6); Eosinophils % 2.2 %; Hematocrit 32.6 % (35.3-44.9); Hemoglobin 11.2 g/dL (11.5-15.4); Immature Granulocytes % 0.4 % (0-4); Lymphocytes # 1.2 K/mcL (0.6-4.6); Lymphocytes % 22.4 %; Mean Corpuscular HGB Conc 34.4 g/dL (31.6-35.5); Mean Corpuscular Hemoglobin 33.6 pg (28.0-33.3); Mean Corpuscular Volume 97.9 fL (83.0-100.0); Mean Platelet Volume 11.9 fL (9.4-12.4); Monocytes # 0.3 K/mcL (0.0-1.3); Monocytes % 5.5 %; Neutrophils # 3.8 K/mcL (1.6-8.9); Platelet Count 166 K/mcL (140-400); Red Blood Count 3.33 M/mcL (3.82-4.97); Red Cell Distribution Width 12.2 % (11.5-14.5); Segmented Neutrophils % 69.1 %
[2018-01-01 05:09] LABS: INR 1.1; Prothrombin Time 11.9 Seconds (9.4-12.1)
[2018-01-01 05:11] LABS: Activated Partial Thrombo Time 29.1 Seconds (26.0-36.0)
[2018-01-01 05:27] LABS: Alanine Aminotransferase 27 Units/L (7-52); Albumin 3.9 g/dL (3.5-5.7); Albumin/Globulin Ratio 1.7 (1.1-2.2); Alkaline Phosphatase 51 Units/L (34-104); Aspartate Amino Transferase 56 Units/L (13-39); BUN/Creatinine Ratio 16 (6-26); Bilirubin,Total 3.1 mg/dL (0.3-1.0); Blood Urea Nitrogen 6 mg/dL (6-20); Calcium 8.6 mg/dL (8.6-10.3); Carbon Dioxide 20 mEq/L (23-29); Chloride 106 mEq/L (98-107); Globulin 2.3 g/dL (2.4-3.5); Glucose 103 mg/dL (70-105); Magnesium 1.8 mg/dL (1.6-2.6); Osmolality,Calculated 278 (280-300); Potassium 3.9 mEq/L (3.5-5.1); Sodium 135 mEq/L (136-145); Total Protein 6.2 g/dL (6.4-8.9); eGFR For Non-African Americans > 60 (> 60)
[2018-01-01 09:39] LABS: Troponin I 0.05 ng/mL (< 0.04)
[2018-01-01] MEDS ORDERED: Ondansetron 4 MG/2 ML VIAL IVP PRN (09:40)
[2018-01-01] MEDS ORDERED: *HR* LORazepam 2 MG/ML VIAL IVP PRN ×2 (09:41)
[2018-01-01] MEDS ORDERED: *HR* Promethazine 25 MG/ML VIAL IVP PRN (09:47)
[2018-01-01] MEDS: Lactobacillus 1 EACH CAP.SPRINK PO SCH (10:03)
[2018-01-01] MEDS: Vancomycin Oral Soln 125 MG/2.5 ML UDC PO SCH ×4 (10:03→22:28)
[2018-01-01] MEDS ORDERED: diazePAM 10 MG/2 ML SYRINGE IVP PRN ×3 (10:22)
--- NOTE | 2018-01-01 13:48 | Internal Med Progress Note ---
<Meredith Muñoz - Last Filed: 01/01/18 17:56> Hospitalist Progress Note - Encounter Date of Encounter: 01/01/18 Time of Encounter: 13:42 - Subjective Interval History: 32 y/o Female with history of failed treatment C. Diff Colitis and chronic EtOH abuse, presented with nausa, diarrhea and abdominal pain along with alcohol withdraw symptoms like anxiety and tremor. She reports anxiety and alcohol induced tactile hallucinations of bugs crawling . She claims her BMs overnight as frequent, dark, tarry, loose but non-watery. Pain in the left lower quadrant. This morning patient complained of chest pain but denied SOB, radiating arm pain or numbness, or dizziness. Her chest pain worsened with holding her breath and defecation. No acute EKG changes but an elevated Troponin I of 0.05. - Exam Vitals: Temp Pulse Resp BP Pulse Ox 99.1 F 70 18 127/88 98 01/01/18 10:53 01/01/18 10:53 01/01/18 10:53 01/01/18 10:53 01/01/18 10:53 Exam: General: appears anxious with racing speech pattern, she is poor historian with changing story such as reporting seizure last night were "almost bit half her tongue off" - then changing it to happening a few weeks ago Heart: RRR no murmurs or rubs Resp: CTAB no wheeze or cough Abdomen: Hyperactive bowels, tenderness in left lower quadrant, no masses Mouth: Tongue shows no signs of abrasion or injury Extremities; No abrasion, multiple tattoos, no pedal edema - Assessment and Plan (1) Alcohol withdrawal Current Visit: Yes Status: Acute Assessment and Plan: 1. Patient is actively withdrawing from alcohol clinically. 2. Will treat with Librium PO scheduled as well as CIWA protocol with PRN Valium 3. Will add Thiamine, Folate, and B12 to her IVF daily. 4. Monitor per CIWA and place on telemetry for concerns of worsening withdrawal. (2) Clostridium difficile colitis Current Visit: Yes Status: Acute Assessment and Plan: failed treatment after last admission because did not continue discharge medication but started flagyl - continue PO flagyl - continue PO cancel - will trend WBC of 4.3 in admit and 5.5 today - Phenergan PRN for nausea - D/c Zofran that was part of order sets (3) Chest pain Current Visit: Yes Status: Acute Assessment and Plan: - troponin on admission less than 0.03 - repeated series of 0.05, 0.12 and down again to 0.08 - EKG: no acute changes -JULIANA score of 1 and heart scoring systems for Major cardiac events of 2 Previous cardiac work up on last admission in early November with Echo showing EF of 60%. But consider GI as possible atypical presentation cardiac events in females. Consulted Cardiology and they advised one does of heprin and they will see her in the morning. (4) HTN (hypertension) Current Visit: No Status: Chronic Assessment and Plan: continue home medication of Metoprolol and Lisinopril DVT Prophylaxis: Heparin SQ - Time Spent with Patient Total time spent is greater than 50% in coordination of care (as documented) at patient's floor/unit and/or counseling patient: 25 - 35 minutes Plan of Care Discussed with: patient Internal Medicine: Result - Labs CBC & Chem 7: 01/01/18 04:39 01/01/18 04:39 Labs: Short CBC 01/01/18 Range/Units 04:39 WBC 5.5 (4.3-11.1) K/mcL Hgb 11.2 L (11.5-15.4) g/dL Hct 32.6 L (35.3-44.9) % Plt Count 166 (140-400) K/mcL Neutrophils # 3.8 (1.6-8.9) K/mcL BMP 01/01/18 04:39 Sodium 135 L Potassium 3.9 Chloride 106 Carbon Dioxide 20 L BUN 6 Creatinine 0.38 L Glucose 103 Calcium 8.6 Cardiac Enzymes 01/01/18 01/01/18 Range/Units 04:39 10:33 Troponin I 0.05 H* 0.12 H* (< 0.04) ng/mL Liver Function 01/01/18 Range/Units 04:39 Total Bilirubin 3.1 H (0.3-1.0) mg/dL AST 56 H (13-39) Units/L ALT 27 (7-52) Units/L Alkaline Phosphatase 51 (34-104) Units/L Albumin 3.9 (3.5-5.7) g/dL - ABG Interpretation ABG results: PT/INR, D-dimer PT 11.9 Seconds (9.4-12.1) 01/01/18 04:39 - VTE Documentation of Mechanical Device: Intermittent pneumatic compression device Consult Discharge Plan - Plan Referrals: Concepcion Correa CNP [Primary Care Provider] - <Greg Boykin - Last Filed: 01/01/18 18:05> Hospitalist Progress Note - Encounter Date of Encounter: 01/01/18 - Exam Vitals: Temp Pulse Resp BP Pulse Ox 99.2 F 81 16 129/79 98 01/01/18 16:22 01/01/18 16:22 01/01/18 16:22 01/01/18 16:22 01/01/18 16:22 - Assessment and Plan (1) DVT prophylaxis Current Visit: Yes Status: Acute (2) Clostridium difficile colitis Current Visit: Yes Status: Acute (3) Alcohol withdrawal Current Visit: Yes Status: Acute - Time Spent with Patient Total time spent is greater than 50% in coordination of care (as documented) at patient's floor/unit and/or counseling patient: Internal Medicine: Result - Labs CBC & Chem 7: 01/01/18 04:39 01/01/18 04:39 Labs: Short CBC 01/01/18 Range/Units 04:39 WBC 5.5 (4.3-11.1) K/mcL Hgb 11.2 L (11.5-15.4) g/dL Hct 32.6 L (35.3-44.9) % Plt Count 166 (140-400) K/mcL Neutrophils # 3.8 (1.6-8.9) K/mcL BMP 01/01/18 04:39 Sodium 135 L Potassium 3.9 Chloride 106 Carbon Dioxide 20 L BUN 6 Creatinine 0.38 L Glucose 103 Calcium 8.6 Cardiac Enzymes 01/01/18 01/01/18 01/01/18 Range/Units 04:39 10:33 17:02 Troponin I 0.05 H* 0.12 H* 0.08 H* (< 0.04) ng/mL Liver Function 01/01/18 Range/Units 04:39 Total Bilirubin 3.1 H (0.3-1.0) mg/dL AST 56 H (13-39) Units/L ALT 27 (7-52) Units/L Alkaline Phosphatase 51 (34-104) Units/L Albumin 3.9 (3.5-5.7) g/dL - ABG Interpretation ABG results: PT/INR, D-dimer PT 11.9 Seconds (9.4-12.1) 01/01/18 04:39 - Attending Attestation I have seen and examined this patient independently. I have discussed with resident physician Dr. Flowers regarding the management plan. Agree with the documentation. Pt has chest pain last night but pain free now. EKG unremarkable. However, troponin 0.03-0.05-0.12-0.08. Review her chart, she did echo 20 days ago which shows mild systolic dysfunction. D/W cardio, will give one dose of lovenox now and cardio will see pt. <ToniMeredith - Last Filed: 01/01/18 17:56> (1) Alcohol withdrawal Qualifiers: Complication of substance-induced condition: with unspecified complication Qualified Code(s): F10.239 - Alcohol dependence with withdrawal, unspecified (4) HTN (hypertension) Qualifiers: Hypertension type: essential hypertension Qualified Code(s): I10 - Essential (primary) hypertension <Greg Boykin - Last Filed: 01/01/18 18:05> (3) Alcohol withdrawal Qualifiers: Complication of substance-induced condition: with unspecified complication Qualified Code(s): F10.239 - Alcohol dependence with withdrawal, unspecified
[2018-01-01 16:20] LABS: Amphetamine Screen,Urine Negative ng/mL (Cutoff=1000); Barbiturate Screen,Urine Negative ng/mL (Cutoff=200); Benzodiazepines Screen,Urine Positive ng/mL (Cutoff=200); Cannabinoid Screen,Urine Negative ng/mL (Cutoff = 50); Cocaine Screen,Urine Negative ng/mL (Cutoff= 300); Opiate Screen,Urine Positive ng/mL (Cutoff=300); Phencyclidine Screen,Urine Negative ng/mL (Cutoff=25)
[2018-01-01] MEDS ORDERED: Aspirin 325 MG TABLET PO ONE (17:40)
[2018-01-01] MEDS ORDERED: *HR* Enoxaparin 100 MG/ML SYRINGE SQ STA (17:56)
[2018-01-01] MEDS: Thiamine (B-1) 100 MG, Folic Acid 1 MG, MVI, adult with vitamin K 10 ML in 0.9 % Sodi... IVPB SCH (18:52)
--- NOTE | 2018-01-01 21:19 | Electrocardiograph Report ---
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
--- NOTE | 2018-01-02 02:14 | Electrocardiograph Report ---
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
[2018-01-02] MEDS: Lactobacillus 1 EACH CAP.SPRINK PO SCH (08:16)
[2018-01-02] MEDS: Vancomycin Oral Soln 125 MG/2.5 ML UDC PO SCH ×4 (08:17→21:07)
--- NOTE | 2018-01-02 09:18 | Cardiology Consult Note ---
<Elliott Mccord - Last Filed: 01/02/18 09:25> Date of Encounter: 01/02/18 Time of Encounter: 08:35 Assessment and Plan (1) Elevated troponin Current Visit: Yes Status: Acute Mild troponin elevation 0.03, 0.12, 0.08 in the setting of severe tremor, ETOH withdrawl, tachycardia, c-diff colitis. Describes muscle skeletal chest pain after tremors. Currently pain free. EKG with no acute ST/T wave changes. Recent TTE completed for frequent PVC during last admit showed EF at 50%. Low normal to mildly reduced global LV systolic dysfunction.Septal bounce of unclear etiology.Mild left ventricular diastolic dysfunction. Normal LV chamber size and wall thickness. Normal right ventricular structure and function. Mild tricuspid regurgitation. Mild pulmonic regurgitation. No pulmonary hypertension. Cardiac risk factors include family history and recent diagnosis HTN. Recommend lifestyle modification, healthy heart diet and exercise. Consider stress test in out-pt setting once she is through ETOH withdrawl. Re-peat TTE ordered by primary team, we will follow. Discussion w patient/family: The assessment and plan as outlined above was discussed with the patient and/or family members who expressed understanding and agreement. All questions were answered. Thank you for involving us in the care of your patient. Please call with any questions. History of Present Illness Consult date: 01/02/18 Requesting physician: Greg Boykin Consult reason: Chest pain, elevated troponin Chief complaint: Tremors, chest pain. History of present illness: Ms. Garvey is a 32 year old female with past medical history of heavy ETOH abuse , tremors, HTN, and recent diagnosis of c-diff colitis. She was recently hospitalized with c-dif and sent home on antibiotic. She was unable to obtain due to lack of insurance. She returned with worsening diarrhea and abdominal pain. She also c/o intermittent chest discomfort after having severe tremors. 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 Over the past month her tremors became severe. Yesterday while at the hospital she developed severe tremors and afterwards felt sore in her chest and some tingling in her arms. C/o tremors and inability to move her legs when trying to walk. C/o some SOB with activity. Cardiology was consulted when she was found to have elevated troponin at 0.08. Past Med Surg Social Fam HX - Past Medical History Medical history: hypertension, kidney stones, liver disease Additional medical history: gastric surgery. alcoholism Psychiatric history: anxiety - Past Surgical History Surgical History: cholecystectomy Additional surgical history: gastric sleeve 2015. D&C x 2. UTERINE ABLAITION - Social History Smoking Status: Never smoker Smokeless Tobacco Status: No Alcohol use: heavy Drug use: none - Family History Mother Living Status: Still Living Hx Family Cardiac Disorders: Yes (HTN, [place]) Hx Family GI Disorders: No Father Hx Family GI Disorders: No Medications and Allergies Metoprolol [Lopressor] 25 mg PO BID 12/15/17 [History] Cetirizine HCl [All Day Allergy] 10 mg PO DAILY PRN 12/17/17 [History] Fluticasone Propionate Nasal [Flonase] 1 spr NS DAILY PRN 12/17/17 [History] Meloxicam 15 mg PO DAILY 12/17/17 [History] Lisinopril [Zestril] 5 mg PO DAILY #30 tablet 12/20/17 [Rx] Multivitamin with Folic Acid [Gnp One Daily Essential Tablet] 400 mcg PO DAILY # 30 tablet 12/20/17 [Rx] 3 Allergy/AdvReac Type Severity Reaction Status Date / Time Hydromorphone [From Dilaudid] AdvReac Hallucinati Verified 12/31/17 14:53 ng lorazepam [From Ativan] AdvReac Hallucinati Verified 12/31/17 14:53 ng All Systems Review: The remainder of the systems were reviewed and are negative Physical Examination Vital Signs, Last 4 Hours Temp Pulse Resp BP Pulse Ox 01/02/18 07:24 98.3 F 61 15 117/77 99 General: Conversant, No Apparent Distress HEENT: Atraumatic, Normocephaly, Mucus Membranes Moist Neck: No JVD, Normal carotid pulses Cardiac: Reg Rate and Rhythm, Normal S1 and S2, No Murmur Lungs: Normal Breath Sounds, No Wheeze, Rales, Rhonchi Neuro: Alert and responsive, No focal deficits noted Abdomen: Soft, Non-Tender Skin: No rashes noted on visualized skin Musculoskeletal: No Chest Wall Tenderness Extremities: No Clubbing, No Cyanosis, No Edema, Normal Pulses, Other (fine tremor noted) Results 01/01/18 04:39 01/01/18 04:39 Lab Results 01/01/18 01/01/18 01/01/18 04:39 10:33 17:02 Sodium 135 L Potassium 3.9 Chloride 106 Carbon Dioxide 20 L BUN 6 Creatinine 0.38 L Glucose 103 Calcium 8.6 Magnesium 1.8 Total Bilirubin 3.1 H AST 56 H ALT 27 Alkaline Phosphatase 51 Troponin I 0.05 H* 0.12 H* 0.08 H* - Imaging and Cardiology Echo: report reviewed - EKG Interpretation EKG results cardiology: personally reviewed Consult Discharge Plan - Plan Referrals: Concepcion Correa CNP [Primary Care Provider] - <Himanshu Alcala - Last Filed: 01/02/18 10:22> Date of Encounter: 01/02/18 - Attending Attestation I have personally performed a face to face evaluation on this patient. I have reviewed and agree with the care plan. History and Exam by me shows: Multiple medical problems, including alcohol abuse, C. diff. Noted to have mildly abnormal troponin, atypical chest pain. Doubt ACS. Would consider outpt. cardiac evaluation when recovers form acute illness. Assessment and Plan Discussion w patient/family: The assessment and plan as outlined above was discussed with the patient and/or family members who expressed understanding and agreement. All questions were answered. Thank you for involving us in the care of your patient. Please call with any questions. History of Present Illness History of present illness: Ms. Garvey is a 32 year old female All Systems Review: The remainder of the systems were reviewed and are negative Physical Examination Vital Signs, Last 4 Hours Temp Pulse Resp BP Pulse Ox 01/02/18 07:24 98.3 F 61 15 117/77 99 Results 01/01/18 04:39 01/01/18 04:39 Lab Results 01/01/18 01/01/18 10:33 17:02 Troponin I 0.12 H* 0.08 H*
--- NOTE | 2018-01-02 10:33 | Internal Med Progress Note ---
<Meredith Muñoz - Last Filed: 01/02/18 13:53> Hospitalist Progress Note - Encounter Date of Encounter: 01/02/18 Time of Encounter: 14:00 - Subjective Interval History: 32 y/o Female with history of failed treatment C. Diff Colitis and chronic EtOH abuse, presented with nausea, diarrhea and abdominal pain along with alcohol withdraw symptoms. She reports a decrease in tremor, anxiety and alcohol induced tactile hallucinations of bugs crawling . Denies seizures, visual and auditory hallucinations. She is hungry after NPO last night and would like to eat. Her significant other was in the room and he also wants to try abstaining from alcohol on thier own with out participating in any out patient treatment or support groups. She reports her BMs are after every meal is frequent and loose but non-watery. Mild cramp pain in the left lower quadrant is improving. Her chest pain has resolved - denied SOB, radiating arm pain or numbness, or dizziness. - Exam Vitals: Temp Pulse Resp BP Pulse Ox 98.3 F 61 15 117/77 99 01/02/18 07:24 01/02/18 07:24 01/02/18 07:24 01/02/18 07:24 01/02/18 07:24 Exam: General: less anxious today, in no acute distress, A&Ox3 Heart: RRR no murmurs or rubs Resp: CTAB no wheeze or cough Abdomen: Hyperactive bowels less than yesterday, tenderness in left lower quadrant, no masses Extremities; No abrasion, multiple tattoos, no pedal edema - Assessment and Plan (1) Chest pain Current Visit: Yes Status: Acute Assessment and Plan: Appreciated Cardiology's recommendations for further evaluation as out patient once she is well. Repeat echo showes changes since last admission in early November with Echo now showing EF of 45-50 from 60% with wall motion abnormalities, - start asprin 81 mg - continue home dose of metoprolol Troponin on admission was l than 0.03 - repeated series of 0.05, 0.12 and down again to 0.08. She received one does of Lovenox last night. - EKG: no acute changes -JULIANA score of 1 and heart scoring systems for Major cardiac events of 2 - UDS presumptive positive for benzodiazepines and opiates, of relevance cocaine screen is negative (2) Alcohol withdrawal Current Visit: Yes Status: Acute Assessment and Plan: - Patient is was withdrawing from alcohol - but is now clinically improving . - Will continue to tritrate down Librium PO scheduled as well as CIWA protocol with PRN Valium - completed 2 0f 3 bags ordered of Thiamine, Folate, and B12 to her IVF daily. (3) Clostridium difficile colitis Current Visit: Yes Status: Acute Assessment and Plan: Failed treatment after last admission because did not continue discharge medication but started flagyl alone - continue PO flagyl - continue PO vanco - Last WBC of 5.5 WNL - Phenergan PRN for nausea Pharmacy completed prior-auth for outpatient treatment - Does not need new script (4) HTN (hypertension) Current Visit: No Status: Chronic Assessment and Plan: continue home medication of Metoprolol and Lisinopril DVT Prophylaxis: ambulation - Time Spent with Patient Total time spent is greater than 50% in coordination of care (as documented) at patient's floor/unit and/or counseling patient: 25 - 35 minutes Plan of Care Discussed with: patient Internal Medicine: Result - Labs CBC & Chem 7: 01/01/18 04:39 01/01/18 04:39 Labs: Cardiac Enzymes 01/01/18 01/01/18 Range/Units 10:33 17:02 Troponin I 0.12 H* 0.08 H* (< 0.04) ng/mL - ABG Interpretation ABG results: PT/INR, D-dimer PT 11.9 Seconds (9.4-12.1) 01/01/18 04:39 - VTE Documentation of Mechanical Device: Intermittent pneumatic compression device Consult Discharge Plan - Plan Referrals: Concepcion Correa CNP [Primary Care Provider] - <Greg oBykin - Last Filed: 01/02/18 15:55> Hospitalist Progress Note - Encounter Date of Encounter: 01/02/18 - Exam Vitals: Temp Pulse Resp BP Pulse Ox 99.3 F 72 19 104/68 98 01/02/18 15:49 01/02/18 15:49 01/02/18 15:49 01/02/18 15:49 01/02/18 15:49 - Assessment and Plan (1) DVT prophylaxis Current Visit: Yes Status: Acute (2) Clostridium difficile colitis Current Visit: Yes Status: Acute (3) Alcohol withdrawal Current Visit: Yes Status: Acute - Time Spent with Patient Total time spent is greater than 50% in coordination of care (as documented) at patient's floor/unit and/or counseling patient: Internal Medicine: Result - Labs CBC & Chem 7: 01/01/18 04:39 01/01/18 04:39 Labs: Cardiac Enzymes 01/01/18 Range/Units 17:02 Troponin I 0.08 H* (< 0.04) ng/mL - ABG Interpretation ABG results: PT/INR, D-dimer PT 11.9 Seconds (9.4-12.1) 01/01/18 04:39 - Impressions Impressions Echocardiogram Limited Views 01/01/18 17:56 Impressions: LVEF 45-50%. Mild LV segmental wall motion abnormality (see Diagram below). Findings are new when compared to Echo 12/17/17. Septal bounce of unclear etiology. Normal right ventricular structure and function. Left Ventricular Wall Motion: Rest Echo Findings The basal inferior, basal inferior septal, mid anterior septal and basal anterior septal bueno were hypokinetic. All other wall segments showed normal motion. Findings: Study Quality * Technically adequate exam. ECG Findings * Normal sinus rhythm. Left Ventricle * LVEF 45-50%. * Septal bounce of unclear etiology. Right Ventricle * Normal right ventricular structure and function. Aorta * Normally sized aortic root. Pericardium * There is no pericardial effusion present. - Attending Attestation I have seen and examined this patient independently. I have discussed with resident physician Dr. Muñoz regarding the management plan. Agree with the documentation. <Meredith Muñoz - Last Filed: 01/02/18 13:53> (2) Alcohol withdrawal Qualifiers: Complication of substance-induced condition: with unspecified complication Qualified Code(s): F10.239 - Alcohol dependence with withdrawal, unspecified (4) HTN (hypertension) Qualifiers: Hypertension type: essential hypertension Qualified Code(s): I10 - Essential (primary) hypertension <Greg Boykin - Last Filed: 01/02/18 15:55> (3) Alcohol withdrawal Qualifiers: Complication of substance-induced condition: with unspecified complication Qualified Code(s): F10.239 - Alcohol dependence with withdrawal, unspecified
--- NOTE | 2018-01-02 13:39 | Event Note ---
Date of Encounter: 01/02/18 Time of Encounter: 13:35 - Cardiology Event Note TTE results reviewed. Echocardiogram Limited Views 01/01/18 17:56 Impressions: LVEF 45-50%. Mild LV segmental wall motion abnormality (see Diagram below). Findings are new when compared to Echo 12/17/17. Septal bounce of unclear etiology. Normal right ventricular structure and function. Left Ventricular Wall Motion: Rest Echo Findings The basal inferior, basal inferior septal, mid anterior septal and basal anterior septal bueno were hypokinetic. All other wall segments showed normal motion. Recommend ischemic evaluation for WMA in the future once c-diff and ETOH withdrawl resolves. Not a good candidate for LHC at this time. If patient is discharged we will schedule out-pt f/u in one week. If she is here friday we will re-assess readiness at that time. Start asa 81 mg daily and continue bb. No Statin due to liver disease.
[2018-01-02] MEDS: Aspirin 81 MG TAB.CHEW PO SCH (16:52)
[2018-01-02] MEDS: Thiamine (B-1) 100 MG, Folic Acid 1 MG, MVI, adult with vitamin K 10 ML in 0.9 % Sodi... IVPB SCH (16:52)
[2018-01-02] MEDS: *HR* HYDROcodone/Acet 5/325 mg TABLET PO PRN (16:57)
[2018-01-03 07:31] VITALS: BP 93/64
[2018-01-03] MEDS ORDERED: Folic Acid 1 MG TABLET PO SCH (09:00)
[2018-01-03] MEDS ORDERED: Thiamine (B-1) 100 MG TABLET PO SCH (09:00)
[2018-01-03] MEDS: Lactobacillus 1 EACH CAP.SPRINK PO SCH (09:12)
[2018-01-03] MEDS: Aspirin 81 MG TAB.CHEW PO SCH (09:13)
--- NOTE | 2018-01-03 09:54 | Discharge Summary ---
<Vernon Flowers - Last Filed: 01/03/18 09:49> - NOTES TO OUTPATIENT PROVIDER Notes to Outpatient Provider: Follow up with cardiology as outpatient for stress test. Patient already has prescription for remainder of outpatient treatment of C. dif waiting at pharmacy with a $0 charge. Date of Encounter: 01/03/18 Time of Encounter: 09:49 - Discharge Diagnosis (1) Clostridium difficile colitis Priority: Primary Status: Acute (2) Alcohol withdrawal Priority: Secondary Status: Acute Qualifiers: Complication of substance-induced condition: with unspecified complication Qualified Code(s): F10.239 - Alcohol dependence with withdrawal, unspecified (3) HTN (hypertension) Priority: Secondary Status: Chronic Qualifiers: Hypertension type: essential hypertension Qualified Code(s): I10 - Essential (primary) hypertension (4) Chest pain Priority: Secondary Status: Acute Qualifiers: Chest pain type: other chest pain Qualified Code(s): R07.89 - Other chest pain; R07.8 - Other chest pain Hospital course: Ms. Garvey is a 32 year old female with history of incomplete treatment C. Diff Colitis, anxiety and chronic EtOH abuse, presented to ED on 12-31 with nausea, diarrhea and cramping abdominal pain along with alcohol withdraw symptoms of tremor and anxiety. She reported alcohol induced tactile hallucinations of bugs crawling. Denies seizures, visual and auditory hallucinations but has history of seizure during previous withdrawals. She was started on CIWAS criteria with scheduled Librium and PRN Valium. Fluids given with vitamin B12, Folate and thiamine replaced. On she complained of tight chest pain with no acute changes on EKG and denied SOB, radiating arm pain or numbness, or dizziness. Troponin trended 0.05, 0.12 and 0.08. Cardiology was consulted and Echo showed changes from previous Echo 2 weeks ago. They advised start aspirin 81 mg and schedule for outpatient follow up and possible stress test when she is well. As she improved with resolved tremor and tactile hallucinations, Librium was titrated down. Stool C. diff Toxin B gene was negative. Her bowel movements were not consistent with c. dif diarrhea as small loose stools after every meal. Incidentally she was noted to have elevated TSH but normal T4 should be evaluated for symptoms on outpatient basis. Her significant other and her both want to try abstaining from alcohol on their own without participating in any outpatient treatment or support groups. Pharmacy arranged prior auth for her outpatient vancomycin and no new script is needed. Labs resolved with WBC of 4.2 return to WNL at 5.5 and creatinine of 0.38 near her baseline. Discharge discussed with: patient - Time Spent with Patient Total time spent providing and/or coordinating discharge services: - Discharge Medications Prescriptions: Aspirin 81 mg PO DAILY #30 tab.chew Chlordiazepoxide [Librium] 25 mg PO DAILY 5 Days #5 capsule Lactobacillus [Culturelle] 2 each PO DAILY #60 cap.sprink Thiamine (B-1) [Vitamin B-1] 100 mg PO DAILY #30 tablet Home Medications: Metoprolol [Lopressor] 25 mg PO BID 12/15/17 [History] Cetirizine HCl [All Day Allergy] 10 mg PO DAILY PRN 12/17/17 [History] Fluticasone Propionate Nasal [Flonase] 1 spr NS DAILY PRN 12/17/17 [History] Meloxicam 15 mg PO DAILY 12/17/17 [History] Lisinopril [Zestril] 5 mg PO DAILY #30 tablet 12/20/17 [Rx] Multivitamin with Folic Acid [Gnp One Daily Essential Tablet] 400 mcg PO DAILY # 30 tablet 12/20/17 [Rx] Aspirin 81 mg PO DAILY #30 tab.chew 01/03/18 [Rx] Chlordiazepoxide [Librium] 25 mg PO DAILY 5 Days #5 capsule 01/03/18 [Rx] Lactobacillus [Culturelle] 2 each PO DAILY #60 cap.sprink 01/03/18 [Rx] Thiamine (B-1) [Vitamin B-1] 100 mg PO DAILY #30 tablet 01/03/18 [Rx] Vancomycin Oral Soln [Firvanq] 125 mg PO QID udc 01/03/18 [Rx] Allergies/Adverse Reactions: 3 Allergy/AdvReac Type Severity Reaction Status Date / Time Hydromorphone [From Dilaudid] AdvReac Hallucinati Verified 12/31/17 14:53 ng lorazepam [From Ativan] AdvReac Hallucinati Verified 12/31/17 14:53 ng Date of admission: 12/31/17 16:59 Primary care physician: Concepcion Correa CNP Consults: 01/01/18 14:52 Consult to Economics Professor [CONS] Routine Reason for SW Consult: unable to obtain outpatient medications on last discharge - vancomycin 01/01/18 17:40 Consult to Cardiology [CONS] Routine Comment: Consulting Provider: Isidro Mccarty Reason for Consult: Chest pain with elevated troponin Call Completed: Yes Discharging clinician: Vernon Flowers Anticipated date of discharge: 01/03/18 - Constitutional Vitals: Temp Pulse Resp BP Pulse Ox 98.8 F 61 16 93/64 98 01/03/18 07:29 01/03/18 07:29 01/03/18 07:29 01/03/18 07:29 01/03/18 07:29 - Other Additional findings: GEN: No acute distress, A&O3 HEAD: Atraumatic, normocephalic EYES: Pupils symmetric, sclera white, conjunctiva pink HEART: RRR, normal S1 and S2, no murmurs LUNGS: Clear to auscultation bilaterally, no wheezes, rhonchi, or crackles ABD: Soft, mild diffuse abdominal tenderness, nondistended, bowel sounds present EXT: No edema noted, pulses 2/4 NEURO: No focal deficits, cooperative with exam - Patient Status Disposition: Home, Self-Care Condition: Undetermined Functional capacity at discharge: independent ambulation Overall status at discharge: patient is progressing back to baseline - Discharge Instructions Instructions: Aspirin (By mouth), Thiamine (Vitamin B-1) (By mouth), Probiotic (By mouth), Clostridium Difficile Infection (DC) Follow Up With: Concepcion Correa CNP [Primary Care Provider] - Additional Instructions: Take librium for 5 days and then stop Continue to avoid alcohol use and seek out support Take vancomycin as prescribed Follow-up with cardiology Follow-up with your primary care physician - Diet and Activity Activity: increase activity as tolerated Diet: advance to your usual diet - VTE Documentation of Mechanical Device: Intermittent pneumatic compression device <Greg Boykin - Last Filed: 01/03/18 14:52> Date of Encounter: 01/03/18 - Discharge Diagnosis (1) DVT prophylaxis Status: Acute (2) Clostridium difficile colitis Status: Acute (3) Alcohol withdrawal Status: Acute Qualifiers: Complication of substance-induced condition: with unspecified complication Qualified Code(s): F10.239 - Alcohol dependence with withdrawal, unspecified Hospital course: Ms. Garvey is a 32 year old female - Time Spent with Patient Total time spent providing and/or coordinating discharge services: Date of admission: 12/31/17 16:59 Primary care physician: Concepcion Correa CNP Consults: 01/01/18 14:52 Consult to Economics Professor [CONS] Routine Reason for SW Consult: unable to obtain outpatient medications on last discharge - vancomycin 01/01/18 17:40 Consult to Cardiology [CONS] Routine Comment: Consulting Provider: Card[facility] [place] Reason for Consult: Chest pain with elevated troponin Call Completed: Yes - Constitutional Vitals: Temp Pulse Resp BP Pulse Ox 98.8 F 61 16 93/64 98 01/03/18 07:29 01/03/18 07:29 01/03/18 07:29 01/03/18 07:29 01/03/18 07:29 - Attending Attestation I have seen and examined this patient today. I have discussed with resident physician Dr Flowers regarding the discharge and the follow-up plan. Agree with the documentation.
[2018-01-03] MEDS: Vancomycin Oral Soln 125 MG/2.5 ML UDC PO SCH (10:20)
== END 2018-01-03 10:35 | disposition home or self-care (01) | DRG 248 ==
LOC: 2ANU 09:36 → EMEROO 09:36 → 2ANU 16:03
PROVIDERS: ADMIT Internal Medicine; ATTEND Internal Medicine

== ENCOUNTER 2018-03-11 12:06 | Observation (INO) ==
[2018-03-11] MEDS ORDERED: 0.9 % Sodium Chloride 1,000 ML IVC ONE (12:33)
[2018-03-11] MEDS ORDERED: diazePAM 10 MG/2 ML SYRINGE IVP STA (12:57)
[2018-03-11 13:04] LABS: Basophils % 0.3 %; Eosinophils # 0.1 K/mcL (0.0-0.6); Eosinophils % 1.9 %; Hematocrit 32.3 % (35.3-44.9); Hemoglobin 11.4 g/dL (11.5-15.4); Immature Granulocytes % 0.3 % (0-4); Lymphocytes # 0.8 K/mcL (0.6-4.6); Lymphocytes % 26.1 %; Mean Corpuscular HGB Conc 35.3 g/dL (31.6-35.5); Mean Corpuscular Hemoglobin 33.2 pg (28.0-33.3); Mean Corpuscular Volume 94.2 fL (83.0-100.0); Mean Platelet Volume 11.1 fL (9.4-12.4); Monocytes # 0.2 K/mcL (0.0-1.3); Monocytes % 6.7 %; Platelet Count 108 K/mcL (140-400); Red Blood Count 3.43 M/mcL (3.82-4.97); Segmented Neutrophils % 64.7 %
[2018-03-11 13:29] LABS: Acetaminophen < 10 mcg/mL (10-20); Alanine Aminotransferase 43 Units/L (7-52); Albumin 3.9 g/dL (3.5-5.7); Albumin/Globulin Ratio 1.3 (1.1-2.2); Alkaline Phosphatase 65 Units/L (34-104); Aspartate Amino Transferase 193 Units/L (13-39); BUN/Creatinine Ratio 26 (6-26); Bilirubin,Total 3.1 mg/dL (0.3-1.0); Blood Urea Nitrogen 9 mg/dL (6-20); Calcium 8.4 mg/dL (8.6-10.3); Carbon Dioxide 22 mEq/L (23-29); Chloride 101 mEq/L (98-107); Ethanol < 10 mg/dL (Less than 10); Globulin 2.9 g/dL (2.4-3.5); Glucose 86 mg/dL (70-105); Osmolality,Calculated 282 (280-300); Potassium 3.4 mEq/L (3.5-5.1); Salicylate < 2.5 mg/dL (15.0-30.0); Sodium 137 mEq/L (136-145); Total Protein 6.8 g/dL (6.4-8.9); eGFR For Non-African Americans > 60 (> 60)
[2018-03-11 14:07] LABS: Bilirubin,Urine Negative (Negative); Blood,Urine Negative (Negative); Clarity,Urine Clear (Clear); Color,Urine Dark Yellow (Yellow); Glucose,Urine (UA) Normal (Normal); Ketones,Urine 15 mg/dL (Negative); Leukocyte Esterase,Urine Small (Negative); Nitrite,Urine Negative (Negative); Protein,Urine Negative (Neg-Trace); Specific Gravity,Urine 1.023 (1.010-1.025); Urobilinogen,Urine Normal (Normal)
[2018-03-11 14:10] LABS: Bacteria,Urine Few per hpf (None-Few); Hyaline Casts,Urine None Seen per lpf (None-Few); Squamous Epithelial Cell,Urine Many per lpf (None-Few)
--- NOTE | 2018-03-11 14:12 | Emergency Department Note ---
Disposition Clinical Impression: Alcohol abuse Alcohol withdrawal Qualifiers: Complication of substance-induced condition: uncomplicated Qualified Code(s): F10.230 - Alcohol dependence with withdrawal, uncomplicated Disposition: Admitted As Inpatient Condition: Fair Referrals: Chela Mukherjee CNP [Primary Care Provider] - Forms: ED Satisfaction Letter Time of Disposition: 14:58 General Adult HPI - General Chief complaint: ED Alcohol Abuse Stated complaint: DT Time Seen by Provider: 03/11/18 12:22 Source: EMS Mode of arrival: EMS Limitations: no limitations Nursing Notes Reviewed: Yes Vital Signs Reviewed: Yes - History of Present Illness HPI Narrative: Patient presents to the ED the chief complaint of alcohol withdrawal. Patient has had withdrawals in the past with seizures. She is unsure if the seizures have been from alcohol or from something else. States that she previously drank up to a liter of vodka per day. She has been taking shots over the last couple of days, and titrating down her alcohol use. Her last shot was at 6 PM last night. States she has been extremely shaky and irritable. Some nausea, diaphoresis and vomiting. Also complaining of left sided abdominal pain. States that she has a history of CHF and had an episode of diarrhea yesterday that smelled like C. difficile. Denies any fever or chills. Denies any chest pain. His having some shortness of breath, but states she is just very anxious Pain Scale: 9 - Related Data Home Medications Medication Instructions Recorded Confirmed Cetirizine HCl [All Day Allergy] 10 mg PO DAILY PRN 12/17/17 03/11/18 Fluticasone Propionate Nasal 1 spr NS DAILY PRN 12/17/17 03/11/18 [Flonase] Alprazolam [Xanax] 2 mg PO DAILY PRN 03/11/18 03/11/18 Furosemide [Lasix] 20 mg PO DAILY 03/11/18 03/11/18 Montelukast [Singulair] 10 mg PO DAILY 03/11/18 03/11/18 Previous Rx's Medication Instructions Recorded Lisinopril [Zestril] 5 mg PO DAILY #30 tablet 12/20/17 Multivitamin with Folic Acid [Gnp 400 mcg PO DAILY #30 tablet 12/20/17 One Daily Essential Tablet] Thiamine (B-1) [Vitamin B-1] 100 mg PO DAILY #30 tablet 01/03/18 Allergies Allergy/AdvReac Type Severity Reaction Status Date / Time Hydromorphone [From Dilaudid] AdvReac Hallucinati Verified 03/11/18 15:08 ng lorazepam [From Ativan] AdvReac Hallucinati Verified 03/11/18 15:08 ng Review of Systems: As reviewed in the HPI. All other systems reviewed are negative or normal. Past Medical History - Past Medical History Attestation: Yes The following information was validated with the patient. Source: patient Medical history: Reports: hypertension, kidney stones, liver disease, seizures Surgical history: Reports: cholecystectomy Psychiatric history: Reports: anxiety FIRE CHIEF history: Reports: bilateral tubal ligation, other - Social History Smoking Status: Never smoker Smokeless Tobacco Status: No Alcohol use: Reports: heavy Drug use: Reports: none Physical Exam - General Limitations: no limitations General appearance: alert, anxious - Head Head exam: atraumatic, normocephalic, normal inspection - Eye Eye exam: Present: normal appearance, PERRL, EOMI - ENT ENT exam: normal exam, normal oropharynx, mucous membranes moist - Neck Neck exam: Present: normal inspection, full ROM, trachea midline - Chest Chest inspection: Present: normal inspection, symmetric chest wall rise - Respiratory Respiratory exam: Present: normal lung sounds bilaterally - Cardiovascular Cardiovascular exam: Present: regular rate, normal rhythm, normal heart sounds - Abdominal Exam Abdominal exam: Present: soft, Non-Tender, hyperactive bowel sounds. Absent: distention, guarding, rebound - Extremities Exam Extremities exam: Present: normal inspection, full ROM. Absent: tenderness, pedal edema - Neurological Exam Neurological exam: Present: alert, oriented X3, CN II-XII intact - Psychiatric Psychiatric exam: Present: anxious, other (Patient does have mild resting tremor and agitation, which is worse with outstretched arms with flapping movements of the hands. Anxious with rapid thought and speech.) - Skin Skin exam: Present: warm, dry (patient does report diaphoresis earlier today), intact, normal color Course Course Narrative: Patient presenting with suspected alcohol withdrawal. Also see if recently. We will send labs. We will treat with Valium here. Patient labs are back and are about baseline for her. She is feeling a little better with Valium but did not fill comfortable going home. Wanted to be admitted overnight. Spoke with hospitalist agreeable with admission. Has been unable to provide a stool sample. Doubt it is C. difficile. She develops any worsening abdominal pain or diarrhea. We will send off for C-DIFF Vital Signs Temperature 98.5 F 03/11/18 12:25 Pulse Rate 88 03/11/18 12:25 Respiratory Rate 18 03/11/18 12:25 Blood Pressure 121/101 03/11/18 12:25 O2 Sat by Pulse Oximetry 99 03/11/18 12:25 Temperature 98.5 F 03/11/18 12:25 Pulse Rate 88 03/11/18 12:25 Respiratory Rate 18 03/11/18 12:25 Blood Pressure 121/101 03/11/18 12:25 O2 Sat by Pulse Oximetry 99 03/11/18 12:25 Oxygen Delivery Oxygen Delivery Room Air Medical Decision Making - Medical Records Medical records reviewed: Yes I reviewed the patient's medical records. - Lab Data Lab results reviewed: Yes I reviewed the patient's lab results. Result diagrams: 03/11/18 12:45 03/11/18 12:45 Lab Results 03/11/18 03/11/18 03/11/18 Range/Units 12:33 12:45 12:45 WBC 3.1 L (4.3-11.1) K/mcL RBC 3.43 L (3.82-4.97) M/mcL Hgb 11.4 L (11.5-15.4) g/dL Hct 32.3 L (35.3-44.9) % MCV 94.2 (83.0-100.0) fL MCH 33.2 (28.0-33.3) pg MCHC 35.3 (31.6-35.5) g/dL RDW 15.0 H (11.5-14.5) % Plt Count 108 L (140-400) K/mcL MPV 11.1 (9.4-12.4) fL Immature Gran % 0.3 (0-4) % Seg Neutrophils % 64.7 % Lymphocytes % 26.1 % Monocytes % 6.7 % Eosinophils % 1.9 % Basophils % 0.3 % Neutrophils # 2.0 (1.6-8.9) K/mcL Lymphocytes # 0.8 (0.6-4.6) K/mcL Monocytes # 0.2 (0.0-1.3) K/mcL Eosinophils # 0.1 (0.0-0.6) K/mcL Basophils # 0.0 (0.0-0.2) K/mcL Sodium 137 (136-145) mEq/L Potassium 3.4 L (3.5-5.1) mEq/L Chloride 101 (98-107) mEq/L Carbon Dioxide 22 L (23-29) mEq/L BUN 9 (6-20) mg/dL Creatinine 0.34 L (0.60-1.20) mg/dL Est GFR ( Amer) > 60 (> 60) Est GFR (Non-Af Amer) > 60 (> 60) BUN/Creatinine Ratio 26 (6-26) Glucose 86 (70-105) mg/dL Calculated Osmolality 282 (280-300) Calcium 8.4 L (8.6-10.3) mg/dL Total Bilirubin 3.1 H (0.3-1.0) mg/dL AST 193 H (13-39) Units/L ALT 43 (7-52) Units/L Alkaline Phosphatase 65 (34-104) Units/L Serum Total Protein 6.8 (6.4-8.9) g/dL Albumin 3.9 (3.5-5.7) g/dL Globulin 2.9 (2.4-3.5) g/dL Albumin/Globulin Ratio 1.3 (1.1-2.2) Urine Color (Yellow) Urine Clarity (Clear) Urine pH (5.0-8.0) pH Units Ur Specific [place] (1.010-1.025) Urine Protein (Neg-Trace) mg/dL Urine Glucose (UA) (Normal) mg/dL Urine Ketones (Negative) mg/dL Urine Blood (Negative) Urine Nitrite (Negative) Urine Bilirubin (Negative) Urine Urobilinogen (Normal) mg/dL Ur Leukocyte Esterase (Negative) Urine Microscopic RBC (0-3) per hpf Urine Microscopic WBC (0-3) per hpf Ur Squamous Epith Cells (None-Few) per lpf Urine Bacteria (None-Few) per hpf Hyaline Casts (None-Few) per lpf Ur Culture Indicated? (NO) Urine Test (Negative) Salicylates < 2.5 L (15.0-30.0) mg/dL Urine Opiates Screen Negative (Mimcgb=008) ng/mL Acetaminophen < 10 L (10-20) mcg/mL Ur Barbiturates Screen Negative (Bezwve=354) ng/mL Ur Phencyclidine Scrn Negative (Cutoff=25) ng/mL Ur Amphetamines Screen Negative (Vlahsz=3831) ng/mL U Benzodiazepines Scrn Positive H (Xlxiec=624) ng/mL Urine Cocaine Screen Negative (Cutoff= 300) ng/mL U Marijuana (THC) Screen Negative (Cutoff = 50) ng/mL Ur Drug Screen Interp See Below Ethyl Alcohol < 10 (Less than 10) mg/dL 03/11/18 03/11/18 Range/Units 13:45 13:56 WBC (4.3-11.1) K/mcL RBC (3.82-4.97) M/mcL Hgb (11.5-15.4) g/dL Hct (35.3-44.9) % MCV (83.0-100.0) fL MCH (28.0-33.3) pg MCHC (31.6-35.5) g/dL RDW (11.5-14.5) % Plt Count (140-400) K/mcL MPV (9.4-12.4) fL Immature Gran % (0-4) % Seg Neutrophils % % Lymphocytes % % Monocytes % % Eosinophils % % Basophils % % Neutrophils # (1.6-8.9) K/mcL Lymphocytes # (0.6-4.6) K/mcL Monocytes # (0.0-1.3) K/mcL Eosinophils # (0.0-0.6) K/mcL Basophils # (0.0-0.2) K/mcL Sodium (136-145) mEq/L Potassium (3.5-5.1) mEq/L Chloride (98-107) mEq/L Carbon Dioxide (23-29) mEq/L BUN (6-20) mg/dL Creatinine (0.60-1.20) mg/dL Est GFR ( Amer) (> 60) Est GFR (Non-Af Amer) (> 60) BUN/Creatinine Ratio (6-26) Glucose (70-105) mg/dL Calculated Osmolality (280-300) Calcium (8.6-10.3) mg/dL Total Bilirubin (0.3-1.0) mg/dL AST (13-39) Units/L ALT (7-52) Units/L Alkaline Phosphatase (34-104) Units/L Serum Total Protein (6.4-8.9) g/dL Albumin (3.5-5.7) g/dL Globulin (2.4-3.5) g/dL Albumin/Globulin Ratio (1.1-2.2) Urine Color Dark Yellow (Yellow) Urine Clarity Clear (Clear) Urine pH 6.0 (5.0-8.0) pH Units Ur Specific [place] 1.023 (1.010-1.025) Urine Protein Negative (Neg-Trace) mg/dL Urine Glucose (UA) Normal (Normal) mg/dL Urine Ketones 15 H (Negative) mg/dL Urine Blood Negative (Negative) Urine Nitrite Negative (Negative) Urine Bilirubin Negative (Negative) Urine Urobilinogen Normal (Normal) mg/dL Ur Leukocyte Esterase Small H (Negative) Urine Microscopic RBC 3-5 H (0-3) per hpf Urine Microscopic WBC 5-15 H (0-3) per hpf Ur Squamous Epith Cells Many H (None-Few) per lpf Urine Bacteria Few (None-Few) per hpf Hyaline Casts None Seen (None-Few) per lpf Ur Culture Indicated? NO. A (NO) Urine Test Negative (Negative) Salicylates (15.0-30.0) mg/dL Urine Opiates Screen (Dyzpra=513) ng/mL Acetaminophen (10-20) mcg/mL Ur Barbiturates Screen (Icndti=470) ng/mL Ur Phencyclidine Scrn (Cutoff=25) ng/mL Ur Amphetamines Screen (Dsutrb=0353) ng/mL U Benzodiazepines Scrn (Ivlkoc=183) ng/mL Urine Cocaine Screen (Cutoff= 300) ng/mL U Marijuana (THC) Screen (Cutoff = 50) ng/mL Ur Drug Screen Interp Ethyl Alcohol (Less than 10) mg/dL - Radiology Data Radiology results reviewed: Yes I reviewed the patient's radiology results. - EKG Data EKG #1 EKG attestation: Yes I reviewed and interpreted this EKG. EKG results narrative: Sinus rhythm, rate 101, normal axis, no acute ischemic changes Attestation Statement - Attestation Attestation: This documentation is done with the assistance of Dragon dictation. Despite efforts made to ensure accuracy, there may be inaccuracies in drywall stripper helper or spelling and typographical errors. I examined this patient and my medical decision-making was reviewed with the Resident Physician. I agree with the documented findings, disposition and treatment plan as described except to the extent set forth below. Patient seen and evaluated by Dr. Bceerra and myself, I agree with his evaluation management plan, supervise care the patient's stay. Patient presents today thinking she could be going through alcohol withdrawal. She has tremors which seemed to stop and go randomly. Said a history of tremors in the past. Workup showed that from neurology did not think she had seizures. She says she has gone from drinking a bottle of distilled spirits a day down to 1-2 glasses. Alcohol here is negative. She says she also has abdominal cramps times and also get some diarrhea but none here instead a history of C. difficile and she is worried about that. We will order a C. difficile assay but she has had no stool sample here. Maninderl and bring her into the hospital to monitor her for withdrawal no fitting at that C. difficile specimen 2. She is in agreement this plan.
[2018-03-11 14:30] LABS: Amphetamine Screen,Urine Negative ng/mL (Cutoff=1000); Barbiturate Screen,Urine Negative ng/mL (Cutoff=200); Benzodiazepines Screen,Urine Positive ng/mL (Cutoff=200); Cannabinoid Screen,Urine Negative ng/mL (Cutoff = 50); Cocaine Screen,Urine Negative ng/mL (Cutoff= 300); Opiate Screen,Urine Negative ng/mL (Cutoff=300); Phencyclidine Screen,Urine Negative ng/mL (Cutoff=25)
[2018-03-11] MEDS ORDERED: Fluticasone Propionate Nasal 50 MCG/SPRAY BOTTLE NS PRN (15:19)
[2018-03-11] MEDS ORDERED: ALPRAZolam 1 MG TABLET PO PRN (15:19)
[2018-03-11] MEDS ORDERED: Loratadine 10 MG TABLET PO PRN (15:19)
[2018-03-11] MEDS ORDERED: Naloxone 0.4 MG/ML INJ IVP PRN (15:20)
--- NOTE | 2018-03-11 15:50 | Internal Med History&Physical ---
Date of Encounter: 03/11/18 Time of Encounter: 15:49 Internal Medicine - H&P: HPI Chief complaint: I have alcohol withdrawal Admitted From: Home Plans for Post Hospital Care: Home History of present illness: Ms. Garvey is a 33 year old female with associated history of alcohol abuse drinking up to 1 L with Daily, hypertension, self-reported history of seizure disorders, chronic benzodiazepine use, who presented to the ER complaining of pain in alcohol withdrawal. She reports her last drink was 6 PM last night, she has since been having nausea and vomiting, and diaphoresis. She also states she has been extremely shaky and irritableAt the time of my evaluation the patient was in stable clinical condition. She did not have tremors until when I entered the room, her vital signs are stable. She has received valium in the ER and requested to be on librium, given a banana bag and likely discharged home for seen in the morning. She does not want detox and does not want to go to rehabilitation. She is also concerned that she might have C. difficile because she was recently treated for C. difficile last month, however she denies diarrhea her last bowel movement was 3 days ago. ROS is non-contributory Labs area t baseline She will be placed on observation Past Med Surg Social Fam HX - Past Medical History Medical history: hypertension, kidney stones, liver disease, seizures Additional medical history: tremors since born,. hypokalemia Psychiatric history: anxiety - Past Surgical History Surgical History: cholecystectomy Additional surgical history: gastric sleeve 2014. D&C x 2. UTERINE ABLAITION - Social History Smoking Status: Never smoker Smokeless Tobacco Status: No Alcohol use: heavy Drug use: none - Family History Mother Living Status: Still Living Hx Family Cardiac Disorders: Yes (HTN, [place]) Hx Family GI Disorders: No Father Hx Family GI Disorders: No Internal Medicine - H&P: Meds Cetirizine HCl [All Day Allergy] 10 mg PO DAILY PRN 12/17/17 [History] Fluticasone Propionate Nasal [Flonase] 1 spr NS DAILY PRN 12/17/17 [History] Lisinopril [Zestril] 5 mg PO DAILY #30 tablet 12/20/17 [Rx] Multivitamin with Folic Acid [Gnp One Daily Essential Tablet] 400 mcg PO DAILY # 30 tablet 12/20/17 [Rx] Thiamine (B-1) [Vitamin B-1] 100 mg PO DAILY #30 tablet 01/03/18 [Rx] Alprazolam [Xanax] 2 mg PO DAILY PRN 03/11/18 [History] Furosemide [Lasix] 20 mg PO DAILY 03/11/18 [History] Montelukast [Singulair] 10 mg PO DAILY 03/11/18 [History] 3 Allergy/AdvReac Type Severity Reaction Status Date / Time Hydromorphone [From Dilaudid] AdvReac Hallucinati Verified 03/11/18 15:08 ng lorazepam [From Ativan] AdvReac Hallucinati Verified 03/11/18 15:08 ng All Systems PM: A 10-system review of systems was performed and is negative for pertinent findings except as documented above in the HPI. - Constitutional Constitutional: no chills, no fever(s), no night sweats - EENT Eyes: no change in vision, no discharge, no pain, no photophobia Ears: no ear discharge, no ear pain, no tinnitus Nose, mouth and throat: no dysphagia, no nasal discharge, no neck pain, no sore throat - Cardiovascular Cardiovascular ROS IM: no chest pain, no diaphoresis, no dyspnea, no lightheadedness, no palpitations, no syncope - Respiratory Respiratory: no cough, no dyspnea, no wheezing, no excessive phlegm production - Gastrointestinal Gastrointestinal: no abdominal pain, no diarrhea, no hematemesis, no hematochezia, no melena, no nausea, no vomiting - Genitourinary Genitourinary: no change in urinary stream, no dysuria, no flank pain, no hematuria - Musculoskeletal Musculoskeletal ROS IM: no numbness, no tingling - Integumentary Integumentary IM: no rash, no unusual bruising - Neurological Neurological ROS: no confusion, no convulsions, no focal weakness, no numbness, no tingling, no tremor(s) - Hematologic/Lymphatic Hematologic/Lymphatic: no easy bruising - Constitutional Vitals: Temp Pulse Resp BP Pulse Ox 98.5 F 88 18 121/101 99 03/11/18 12:25 03/11/18 12:25 03/11/18 12:25 03/11/18 12:25 03/11/18 12:25 Exam: see below - Head Head exam: Present: atraumatic, normocephalic - Eye Eye exam: Present: PERRL, conjuntiva pink, sclera anicteric Pupils: Present: PERRL - Neck Neck exam general surgery: Present: supple, trachea midline. Absent: lymphadenopathy - Respiratory Respiratory exam: Present: CTAB. Absent: accessory muscle use, rales, rhonchi, wheezes - Cardiovascular Cardiovascular exam: Present: RRR, +S1, +S2. Absent: diastolic murmur, gallop, rubs, systolic murmur - GI/Abdominal GI/Abdominal exam: Present: normal bowel sounds, soft, no peritoneal signs. Absent: distended, tenderness - Extremities Exam Extremities exam: Present: warm, radial pulses palpable and symmetrical. Absent : calf tenderness, cyanotic, pedal edema - Neurological Exam Neurological exam: Present: CN II-XII intact, oriented X3, no focal deficits. Absent: pronater drift, facial droop, speech deficit - Skin Skin exam: Present: dry, intact Internal Med - H&P Results - Labs CBC & Chem 7: 03/11/18 12:45 03/11/18 12:45 - Assessment and plan (1) Alcohol withdrawal Current Visit: Yes Status: Acute Assessment and plan: Librium po Banana bag M/V/T Monitor CIWA Resume home dose of benzo Qualifiers: Complication of substance-induced condition: uncomplicated Qualified Code(s ): F10.230 - Alcohol dependence with withdrawal, uncomplicated (2) Alcohol abuse Current Visit: Yes Status: Chronic Assessment and plan: encourage cessation, refuses rehab SW eval (3) DVT prophylaxis Current Visit: Yes Status: Acute Assessment and plan: ambulate (4) HTN (hypertension) Current Visit: Yes Status: Chronic Assessment and plan: continue home meds Qualifiers: Hypertension type: essential hypertension Qualified Code(s): I10 - Essential (primary) hypertension (5) Hypokalemia Current Visit: Yes Status: Acute Assessment and plan: replace po Check a.m labs, with mag (6) Cytopenia Current Visit: Yes Status: Chronic Assessment and plan: chronic, stable (7) Seizure disorder Current Visit: Yes Status: Ruled-out Assessment and plan: Per prior admission, neurology ruled out, unlikely, EEG normal in last admission likely induced by alcohol or benzo withdrawal Continue home dose of benzo and monitor - Time Spent With Patient Total time spent is greater than 50% in coordination of care (as documented) at patient's floor/unit and/or counseling patient:
[2018-03-11] MEDS: Thiamine (B-1) 100 MG, Folic Acid 1 MG, MVI, adult with vitamin K 10 ML in 0.9 % Sodi... IVPB SCH (17:20)
[2018-03-11] MEDS: Acetaminophen 325 MG TABLET PO PRN (21:16)
[2018-03-12 06:07] LABS: Basophils % 0.4 %; Eosinophils % 2.9 %; Hemoglobin 10.2 g/dL (11.5-15.4); Immature Granulocytes % 0.4 % (0-4); Red Cell Distribution Width 15.1 % (11.5-14.5)
[2018-03-12 06:10] LABS: Eosinophils # 0.1 K/mcL (0.0-0.6); Hematocrit 29.5 % (35.3-44.9); Immature Platelets 9.3 % (1.1-6.1); Lymphocytes # 1.1 K/mcL (0.6-4.6); Lymphocytes % 39.9 %; Mean Corpuscular HGB Conc 34.6 g/dL (31.6-35.5); Mean Corpuscular Hemoglobin 33.1 pg (28.0-33.3); Mean Corpuscular Volume 95.8 fL (83.0-100.0); Mean Platelet Volume 11.3 fL (9.4-12.4); Monocytes # 0.2 K/mcL (0.0-1.3); Monocytes % 7.9 %; Neutrophils # 1.4 K/mcL (1.6-8.9); Red Blood Count 3.08 M/mcL (3.82-4.97); Segmented Neutrophils % 48.5 %
[2018-03-12 06:16] LABS: Platelet Count 89 K/mcL (140-400)
[2018-03-12 06:27] LABS: BUN/Creatinine Ratio 19 (6-26); Blood Urea Nitrogen 6 mg/dL (6-20); Calcium 7.7 mg/dL (8.6-10.3); Carbon Dioxide 24 mEq/L (23-29); Chloride 104 mEq/L (98-107); Glucose 96 mg/dL (70-105); Osmolality,Calculated 279 (280-300); Potassium 2.9 mEq/L (3.5-5.1); Sodium 136 mEq/L (136-145); eGFR For Non-African Americans > 60 (> 60)
[2018-03-12] MEDS ORDERED: Potassium Chloride 40 MEQ, Lidocaine 1% 2 ML in D5% in Water 500 ML IVPB ONE (08:03)
[2018-03-12] MEDS: Furosemide 20 MG TABLET PO SCH (08:17)
--- NOTE | 2018-03-12 10:10 | Discharge Summary ---
- NOTES TO OUTPATIENT PROVIDER Notes to Outpatient Provider: 33 F with PMH of alcohol abuse who presented with alcohol withdrawal. She also complained of diarrhea, she had electrolyte abnormalities including hypokalmeia and hypomagnessemia which were both repleted and normal prior to discharge. She is on chronic BZPs and per [facility] still has medications. She is discharged home on request , with librium tapering doses and appropriate follow up with PCP. She is not interested in rehab, she plans to self-quit. Orders not resulted at time of discharge: Pending orders 03/12/18 16:00 Chem 7 [Basic Metabolic Panel] Stat Date of Encounter: 03/12/18 Time of Encounter: 10:10 - Discharge Diagnosis (1) Alcohol withdrawal Priority: Primary Status: Acute Qualifiers: Complication of substance-induced condition: uncomplicated Qualified Code(s ): F10.230 - Alcohol dependence with withdrawal, uncomplicated (2) Alcohol abuse Priority: Secondary Status: Chronic (3) DVT prophylaxis Priority: Primary Status: Resolved (4) HTN (hypertension) Priority: Secondary Status: Chronic Qualifiers: Hypertension type: essential hypertension Qualified Code(s): I10 - Essential (primary) hypertension (5) Hypokalemia Priority: Primary Status: Resolved (6) Cytopenia Priority: Secondary Status: Chronic (7) Seizure disorder Priority: Secondary Status: Ruled-out Hospital course: Ms. Garvey is a 33 year old female 33 F with PMH of alcohol abuse, HTN, Asthma, Anxiety who presented with alcohol withdrawal. She also complained of diarrhea, she had electrolyte abnormalities including hypokalmeia and hypomagnessemia which were both repleted and normal prior to discharge. She is on chronic BZPs and per [facility] still has medications. She is discharged home on request , with librium tapering doses and appropriate follow up with PCP She is not interested in rehab, she plans to self-quit. She had some episodes of diarrhea in this admission, C.DIFF was negative Discharge discussed with: patient, family, nurse - Time Spent with Patient Total time spent providing and/or coordinating discharge services: Less than 30 minutes - Discharge Medications Home Medications: Cetirizine HCl [All Day Allergy] 10 mg PO DAILY PRN 12/17/17 [History] Fluticasone Propionate Nasal [Flonase] 1 spr NS DAILY PRN 12/17/17 [History] Lisinopril [Zestril] 5 mg PO DAILY #30 tablet 12/20/17 [Rx] Multivitamin with Folic Acid [Gnp One Daily Essential Tablet] 400 mcg PO DAILY # 30 tablet 12/20/17 [Rx] Thiamine (B-1) [Vitamin B-1] 100 mg PO DAILY #30 tablet 01/03/18 [Rx] Alprazolam [Xanax] 2 mg PO DAILY PRN 03/11/18 [History] Furosemide [Lasix] 20 mg PO DAILY 03/11/18 [History] Montelukast [Singulair] 10 mg PO DAILY 03/11/18 [History] Allergies/Adverse Reactions: 3 Allergy/AdvReac Type Severity Reaction Status Date / Time Hydromorphone [From Dilaudid] AdvReac Hallucinati Verified 03/11/18 15:08 ng lorazepam [From Ativan] AdvReac Hallucinati Verified 03/11/18 15:08 ng Date of admission: 03/11/18 15:47 Primary care physician: Chela Mukherjee CNP Discharging clinician: Antony Beck Anticipated date of discharge: 03/12/18 - Constitutional Vitals: Temp Pulse Resp BP Pulse Ox 98.0 F 63 16 154/99 97 03/12/18 07:05 03/12/18 07:05 03/12/18 07:05 03/12/18 07:05 03/12/18 07:05 General appearance: Present: A&O X 3, pleasant, no acute distress Exam: see exam below - Head Head exam: Present: atraumatic, normocephalic - Eye Eye exam: Present: PERRL, conjuntiva pink, sclera anicteric Pupils: Present: PERRL - Neck Neck exam general surgery: Present: supple, trachea midline. Absent: lymphadenopathy - Respiratory Respiratory exam: Present: CTAB. Absent: accessory muscle use, rales, rhonchi, wheezes - Cardiovascular Cardiovascular exam: Present: RRR, +S1, +S2. Absent: diastolic murmur, gallop, rubs, systolic murmur - GI/Abdominal GI/Abdominal exam: Present: normal bowel sounds, soft, no peritoneal signs. Absent: distended, tenderness - Extremities Exam Extremities exam: Present: warm, radial pulses palpable and symmetrical. Absent : calf tenderness, cyanotic, pedal edema - Neurological Exam Neurological exam: Present: CN II-XII intact, oriented X3, no focal deficits. Absent: pronater drift, facial droop, speech deficit - Skin Skin exam: Present: dry, intact - Patient Status Disposition: Home, Self-Care Condition: Good Functional capacity at discharge: independent ambulation Overall status at discharge: patient is back to baseline - Discharge Instructions Follow Up With: Chela Mukherjee CNP [Primary Care Provider] - Solange Aguila CNP [Advanced Practice Nurse] - 03/17/18 9:00 am - Diet and Activity Activity: resume usual activities as tolerated Diet: low salt diet
[2018-03-12] MEDS: Acetaminophen 325 MG TABLET PO PRN (10:55)
[2018-03-12 16:21] LABS: BUN/Creatinine Ratio 11 (6-26); Blood Urea Nitrogen 5 mg/dL (6-20); Calcium 8.1 mg/dL (8.6-10.3); Carbon Dioxide 27 mEq/L (23-29); Chloride 102 mEq/L (98-107); Glucose 107 mg/dL (70-105); Osmolality,Calculated 278 (280-300); Potassium 3.5 mEq/L (3.5-5.1); Sodium 135 mEq/L (136-145); eGFR For Non-African Americans > 60 (> 60)
[2018-03-12] MEDS: Thiamine (B-1) 100 MG, Folic Acid 1 MG, MVI, adult with vitamin K 10 ML in 0.9 % Sodi... IVPB SCH (17:05)
[2018-03-12] MEDS ORDERED: *HR* LORazepam 2 MG/ML VIAL IVP ONE (19:00)
[2018-03-12] MEDS ORDERED: *HR* LORazepam 2 MG/ML VIAL IVP PRN ×3 (19:07)
--- NOTE | 2018-03-12 19:09 | Event Note ---
<Yodit Cano - Last Filed: 03/12/18 19:31> Date of Encounter: 03/12/18 Ms. Garvey was sitting on her bed at around 7:00 and speaking with the nurse and soon afterwards she started having clonic motion. The nurse held her right away , she did not hit her head. She was not responding to her name or painful stimulation. Rapid response was called. Her vitals were recorded as blood pressure of 124/91, heart rate of 101, respiratory rate of 24 with oxygen saturation of 99%. She has history of alcohol abuse and was on CIWA protocol and was already on librium during this episode. She had some oral secretions dropping from her mouth. She did not bite her tongue. After about 2 minutes of the onset of jerking motion she starting to recover. She was still not oriented to place. She received 0.5 of ativan. She is on benzodiazepam at home. Her discharge is canceled and she will be observed overnight. Could be benzo withdrawal or due to alcohol withdrawal seizure. <Antony Beck - Last Filed: 03/13/18 18:51> Date of Encounter: 03/13/18 Time of Encounter: 19:08 I was personally present at the bedside through out the RResponse Agree with documentation as above, there was no post-ictal incontinence or confusion. She had seizure work uo with EEG and neuro eval in the past. Discharge willbe cancelled and patient will continue receiving mgt for alcohol wothdrawal
[2018-03-13] MEDS: Acetaminophen 325 MG TABLET PO PRN ×2 (02:02→08:38)
[2018-03-13 06:37] VITALS: BP 117/74
[2018-03-13] MEDS: Furosemide 20 MG TABLET PO SCH (08:38)
--- NOTE | 2018-03-13 18:42 | Internal Med Progress Note ---
Hospitalist Progress Note - Encounter Date of Encounter: 03/13/18 Time of Encounter: 08:30 - Subjective Interval History: Ms Garvey was to be discharged yesterday but had an event prior to discharge. Today she is feeling well and feels ready to go home. - Exam Vitals: Temp Pulse Resp BP Pulse Ox 98.0 F 59 16 117/74 97 03/13/18 06:34 03/13/18 06:34 03/13/18 06:34 03/13/18 06:34 03/13/18 06:34 Exam: Alert and oriented Comfortable Mucus membranes dry Heart reg No wheeze Abd soft and nontender Moves all extremities - Assessment and Plan (1) Seizure disorder Status: Ruled-out (2) Cytopenia Status: Chronic (3) Hypokalemia Status: Resolved (4) Alcohol abuse Status: Chronic Assessment and Plan: Cessation encouraged. (5) DVT prophylaxis Status: Resolved (6) HTN (hypertension) Status: Chronic Assessment and Plan: continue home meds (7) Alcohol withdrawal Status: Acute Assessment and Plan: D/C on librium short term. - Time Spent with Patient Total time spent is greater than 50% in coordination of care (as documented) at patient's floor/unit and/or counseling patient: Internal Medicine: Result - Labs CBC & Chem 7: 03/12/18 05:45 03/12/18 15:48 Consult Discharge Plan - Plan Instructions: Chest Pain (DC), Clostridium Difficile Infection (DC), Abuse of Alcohol (DC), Chronic Hypertension (DC), Alcohol Withdrawal (DC) Referrals: Cheal Mukherjee CNP [Primary Care Provider] - Solange Aguila CNP [Advanced Practice Nurse] - 03/17/18 9:00 am Prescriptions: Chlordiazepoxide [Librium] 25 mg PO QID 6 Days #20 capsule (6) HTN (hypertension) Qualifiers: Hypertension type: essential hypertension Qualified Code(s): I10 - Essential (primary) hypertension (7) Alcohol withdrawal Qualifiers: Complication of substance-induced condition: uncomplicated Qualified Code(s) : F10.230 - Alcohol dependence with withdrawal, uncomplicated
[2018-03-14] MEDS ORDERED: Folic Acid 1 MG TABLET PO SCH (09:00)
[2018-03-14] MEDS ORDERED: Multivit/Ca/Min/Fe/FA 1 TAB TABLET PO SCH (09:00)
[2018-03-14] MEDS ORDERED: Thiamine (B-1) 100 MG TABLET PO SCH (09:00)
[2018-03-14] MEDS ORDERED: Vitamin B Complex/Vit C/Vit E 1 EACH TABLET PO SCH (09:00)
--- NOTE | 2018-03-14 11:30 | Electrocardiograph Report ---
[place] [id number] Test Date: 2018-03-11 Pat Name: Maria Luisa Garvey Department: EXAM7 Room: 3A Gender: F [employer]: : 1985 Requested By: Forrest Trujillo Order Number: [id number] Reading MD: Danni Montemayor Measurements Intervals [place] Rate: 101 P: [place]: QRS: 20 QRSD: 79 T: 7 QT: 383 QTc: 497 Interpretive Statements Probably sinus rhythm Baseline artifact limits interpretation Electronically Signed On 03-14-2018 11:29:15 EDT by Danni Montemayor
== END 2018-03-13 11:02 | disposition home or self-care (01) ==
LOC: EMEROOARM 12:06 → 3ANU 12:06 → SUATTDRO 15:47 → 3ANU 17:00
PROVIDERS: ADMIT Internal Medicine; ATTEND Internal Medicine

== ENCOUNTER 2018-08-25 16:09 | Inpatient (IN) ==
[2018-08-25] MEDS ORDERED: Isovue-370 500 ML BOTTLE IVP ONE (17:36)
[2018-08-25] MEDS ORDERED: Naloxone 0.4 MG/ML INJ IVP PRN ×2 (17:40)
[2018-08-25] MEDS ORDERED: Thiamine (B-1) 100 MG in D5% in Water 50 ML IVPB SCH (17:45)
--- NOTE | 2018-08-25 18:07 | Internal Med History&Physical ---
Date of Encounter: 08/25/18 Time of Encounter: 18:01 Internal Medicine - H&P: HPI Chief complaint: abd pain Admitted From: Home History of present illness: This is a 33 yof who is unfortunately was diagonsed with alcohol hepattiss and was sent home with steroid. Pt used to drink vodka about half liter a day for three years and she is a high functioning aparenlty lost over 200 lbs and worked outin the gym with four kdis at home. About couple monhs bakc, she started to devleop juaice and was here. She had been clean for four weeks and four days. Her last bili was 18 and today she was seeing Dr. Jose E Roca in the office and found to have elevated bli of 23 and an array of symptoms: pt c/o of numnbess through out her body, especailly her legs and she fell, did 't hit her head. She has diffisue leathagy, fatigue, n/v, wt loss of 2 bls a day, and she has emesis repeated after each meal. She also has headache and she did start to have seizures in the past a few months and she can tell if she has seizurs. She also delveoped chill lately, no fever that she knows of. There is no chest pain, no SOB, pt dose have diffuse abd pain, with constipation and diarrhea alternativley. Pt did have c diff int eh past and in addition, pt had ESBL from urine tract infection in the past. Pt c/o of malaise as well, and pt was dircted admitted from the office. No othe rallevaiting or aggrevating factors. Past Med Surg Social Fam HX - Past Medical History Medical history: hepatitis, hypertension, kidney stones, liver disease, seizures Additional medical history: tremors since born,. hypokalemia, gastric sleeve, cdiff, ESBL Psychiatric history: anxiety - Past Surgical History Surgical History: cholecystectomy Additional surgical history: gastric sleeve 2015. D&C x 2. UTERINE ABLAITION - Social History Smoking Status: Never smoker Smokeless Tobacco Status: No Alcohol use: none, recent Drug use: none - Family History Mother Living Status: Still Living Hx Family Cardiac Disorders: Yes ([place], [place]) Hx Family GI Disorders: No Father Hx Family GI Disorders: No - Additional Family History Additional family history: mom [place], dad [place] both in the 50 's Internal Medicine - H&P: Meds Fluticasone Propionate Nasal [Flonase] 2 spr NS DAILY PRN 12/17/17 [History] Metoprolol [Lopressor] 12.5 mg PO BID 08/06/18 [History] Allergy/AdvReac Type Severity Reaction Status Date / Time hydromorphone [From Dilaudid] AdvReac Hallucinati Verified 05/10/18 10:08 ng All Systems PM: A 10-system review of systems was performed and is negative for pertinent findings except as documented above in the HPI. - Constitutional Constitutional: chills, lethargy, malaise, night sweats, weakness, weight loss, no fever(s) - EENT Eyes: itchy eyes, seeing flashes, no pain, no photophobia Ears: as per HPI Nose, mouth and throat: as per HPI - Breasts Breasts: as per HPI - Cardiovascular Cardiovascular ROS IM: lightheadedness, no chest pain, no claudication, no irregular heart rhythm - Respiratory Respiratory: no hemoptysis, no dyspnea on exertion, no wheezing, no excessive phlegm production - Gastrointestinal Gastrointestinal: constipation, cramping, excessive flatus, fecal incontinence, heartburn, loose stools, nausea - Musculoskeletal Musculoskeletal ROS IM: arthralgias, muscle cramps, muscle weakness, myalgias - Integumentary Integumentary IM: pruritus, rash, sores - Neurological Neurological ROS: numbness, paresthesias, no abnormal gait, no abnormal hearing, no abnormal movements - Psychiatric Psychiatric: confusion, depression, difficulty concentrating, no hallucinations, no homicidal ideation - Endocrine Endocrine IM: no fatigue, no flushing - Hematologic/Lymphatic Hematologic/Lymphatic: easy bleeding, easy bruising, lymphadenopathy - Allergic/Immunologic Allergic/Immunologic: no tongue swelling, no throat swelling, no itchy eyes - Constitutional Vitals: Temp Pulse Resp BP Pulse Ox 98.8 F 67 16 116/76 100 08/25/18 16:50 08/25/18 16:50 08/25/18 16:50 08/25/18 16:50 08/25/18 16:50 General appearance: Present: cachectic, cooperative, A&O X 2 Exam: severelly juandied - Head Head exam: Present: atraumatic, normal inspection - Expanded Head Exam Head exam expanded: Absent: laceration, raccoon eyes, tenderness of temporal artery - ENT ENT exam: Present: mucous membranes moist, TM's normal bilaterally Additional comments: severe icteric conjuctiva - Neck Neck exam general surgery: Present: full ROM, normal inspection. Absent: lymphadenopathy, nuchal rigidity, thyromegaly - Respiratory Respiratory exam: Present: accessory muscle use, CTAB. Absent: chest wall tenderness, rhonchi, stridor - Cardiovascular Cardiovascular exam: Present: bradycardia, clicks, RRR, +S1, +S2. Absent: JVD - GI/Abdominal GI/Abdominal exam: Present: distended, hepatomegaly, normal bowel sounds, soft, splenomegaly, tenderness, no peritoneal signs - Bimanual exam: Present: adnexal mass - Extremities Exam Extremities exam: Present: full ROM, normal capillary refill. Absent: calf tenderness, joint swelling - Back Exam Back exam: Present: full ROM. Absent: CVA tenderness (L), CVA tenderness (R) - Neurological Exam Neurological exam: Present: CN II-XII intact, motor sensory deficit, normal gait, oriented X3, reflexes normal. Absent: no focal deficits - Psychiatric Psychiatric exam: Present: anxious. Absent: agitated, manic, suicidal ideation - Skin Skin exam: Present: pallor, urticaria. Absent: rash - Summary of Assessment and Plan Summary of Assessment and Plan: this is a 33 yof who presentd with kernicterus 1) kernicterus: pt has bili of 23, this likely due to ETOH hepatttis with elevated score over 23. At this point we will start the pt on solumedrol and see how pt dose, a trial of NCA as well. will tyr ursodial as well to see if it helps. 2) headache: check ammonia, I do not think pt is encephloaphtic on exam pt did have a fall but iddn't hit her head will get CT of the had as well 3)abd pain: ddx: acolohlic hepatitis as AST and ALT ratio are 2/1 vs. C dif vs. other infecitous colitis vs. others hepatic capsule stretching / infection vs. SBP at this point, we will do a CT to ascess how much asicte fluid is there If there is large, we mgiht have to drain it 4)chills: suspious for infection, will get procalciotoin owens culture hold off broad for now cipro and flagyl only 5)DVT prophlaixs: pt has hematoma from last time, will do SCD's only 6)diet: regular diet for now unless ammonia is elevated 7) dispo: prognosis is very guarded, she is very young, she should have a beter prognosis but bili is 23. will be in tomorrow to see her as well Time: 45 min with 50% spent by bedsdie - Time Spent With Patient Total time spent is greater than 50% in coordination of care (as documented) at patient's floor/unit and/or counseling patient:
[2018-08-25] MEDS: Sucralfate 1 GM TABLET PO SCH ×2 (18:54→22:59)
[2018-08-25] MEDS: Thiamine (B-1) 100 MG TABLET PO SCH (18:54)
[2018-08-25] MEDS: Multivitamin Liquid 15 ML UDC PO SCH (18:56)
[2018-08-25] MEDS ORDERED: ACETYLCYSTEINE IVC ONE ×3 (19:00→20:30)
[2018-08-25] MEDS ORDERED: WATER IVC ONE ×2 (19:15→20:30)
[2018-08-25] MEDS ORDERED: D5 IVC ONE ×2 (19:15→20:30)
[2018-08-25] MEDS: MethylPREDNISolone 40 MG/ML VIAL IVP SCH (20:06)
[2018-08-25] MEDS: Famotidine 20 MG/2 ML VIAL IVP SCH (20:06)
[2018-08-25] MEDS: Lactulose Oral Soln 20 GM/30 ML UDC PO SCH (20:07)
[2018-08-25] MEDS: Potassium Chloride Elixir 20 MEQ/15 ML UDC PO SCH (20:21)
[2018-08-25] MEDS: 0.9 % Sodium Chloride 1,000 ML IVC SCH (20:22)
[2018-08-25] MEDS ORDERED: *HR* Acetylcysteine 20% 600 MG/3 ML ORAL SYRINGE PO SCH (21:00)
[2018-08-25] MEDS: Ondansetron 4 MG/2 ML VIAL IVP PRN (21:02)
[2018-08-25] MEDS ORDERED: *HR* FentaNYL (PF) 100 MCG/2 ML VIAL IVP ONE (21:07)
[2018-08-25] MEDS ORDERED: *HR* LORazepam 2 MG/ML VIAL IVP PRN ×2 (22:08)
[2018-08-25] MEDS: MetroNIDAZOLE 500 MG/100 ML 500 MG/100 ML BAG IVPB SCH (22:58)
[2018-08-26] MEDS ORDERED: ACETYLCYSTEINE IVC ONE (01:00)
[2018-08-26] MEDS ORDERED: D5 IVC ONE (01:00)
[2018-08-26] MEDS ORDERED: WATER IVC ONE (01:00)
[2018-08-26] MEDS: MetroNIDAZOLE 500 MG/100 ML 500 MG/100 ML BAG IVPB SCH ×2 (04:04→10:50)
[2018-08-26] MEDS: *HR* LORazepam 2 MG/ML VIAL IVP PRN ×4 (04:31→23:23)
[2018-08-26] MEDS: 0.9 % Sodium Chloride 1,000 ML IVC SCH ×2 (05:16→13:31)
[2018-08-26] MEDS: Famotidine 20 MG/2 ML VIAL IVP SCH ×2 (05:54→17:51)
[2018-08-26 06:18] LABS: Basophils % 0.3 %; Eosinophils % 0.3 %; Hematocrit 24.6 % (35.3-44.9); Immature Granulocytes % 0.8 % (0-4); Lymphocytes # 0.5 K/mcL (0.6-4.6); Lymphocytes % 13.2 %; Mean Corpuscular HGB Conc 32.5 g/dL (31.6-35.5); Mean Corpuscular Hemoglobin 33.8 pg (28.0-33.3); Mean Corpuscular Volume 103.8 fL (83.0-100.0); Mean Platelet Volume 11.7 fL (9.4-12.4); Monocytes # 0.2 K/mcL (0.0-1.3); Monocytes % 4.1 %; Neutrophils # 3.2 K/mcL (1.6-8.9); Platelet Count 125 K/mcL (140-400); Red Blood Count 2.37 M/mcL (3.82-4.97); Red Cell Distribution Width 13.1 % (11.5-14.5); Segmented Neutrophils % 81.3 %
[2018-08-26 06:33] LABS: INR 1.6; Prothrombin Time 17.8 Seconds (9.4-12.1)
[2018-08-26 06:35] LABS: Activated Partial Thrombo Time 35.4 Seconds (26.0-36.0)
[2018-08-26 06:36] LABS: Alanine Aminotransferase 32 Units/L (7-52); Albumin 2.2 g/dL (3.5-5.7); Albumin/Globulin Ratio 0.9 (1.1-2.2); Alkaline Phosphatase 101 Units/L (34-104); Aspartate Amino Transferase 148 Units/L (13-39); BUN/Creatinine Ratio 7 (6-26); Bilirubin,Total 18.7 mg/dL (0.3-1.0); Blood Urea Nitrogen 2 mg/dL (6-20); Calcium 7.5 mg/dL (8.6-10.3); Carbon Dioxide 23 mEq/L (23-29); Chloride 108 mEq/L (98-107); Globulin 2.4 g/dL (2.4-3.5); Glucose 155 mg/dL (70-105); Osmolality,Calculated 281 (280-300); Potassium 3.4 mEq/L (3.5-5.1); Sodium 136 mEq/L (136-145); Total Protein 4.6 g/dL (6.4-8.9); eGFR For Non-African Americans > 60 (> 60)
[2018-08-26] MEDS: MethylPREDNISolone 40 MG/ML VIAL IVP SCH (08:01)
[2018-08-26] MEDS: Multivitamin Liquid 15 ML UDC PO SCH (08:01)
[2018-08-26] MEDS: Thiamine (B-1) 100 MG TABLET PO SCH (08:01)
[2018-08-26] MEDS: Potassium Chloride Elixir 20 MEQ/15 ML UDC PO SCH ×2 (08:01→16:18)
[2018-08-26] MEDS: Lactulose Oral Soln 20 GM/30 ML UDC PO SCH ×2 (08:01→20:06)
[2018-08-26] MEDS: Sucralfate 1 GM TABLET PO SCH ×4 (08:01→21:32)
[2018-08-26] MEDS: *HR* OxyCODONE Immed Rel 5 MG TABLET PO PRN ×2 (09:08→18:05)
[2018-08-26 10:17] LABS: Acetaminophen < 10 mcg/mL (10-20)
--- NOTE | 2018-08-26 11:11 | Gastroenterology Consult Note ---
Date of Encounter: 08/26/18 Time of Encounter: 09:50 - Assessment and plan (1) Alcoholic hepatitis Current Visit: No Status: Acute Assessment and plan: Continue IVF and vitamin/electrolyte replacement. DF is currently 45.4. MRCP 08/06 negative for any biliary obstruction. CT A/P 08/25 shows hepatomegaly with severe hepatic steatosis. Hepatitis proile, CHARI, AMA, F-Actin, AFP, A1AT, negative on 08/06. ASCA and ANCA negative on 08/07 Continue Solu-Medrol and Mucomyst. Total abstinence from alcohol including social drinking. No Tylenol use. Qualifiers: Ascites presence: without ascites Qualified Code(s): K70.10 - Alcoholic hepatitis without ascites (2) Hepatic steatosis Current Visit: Yes Status: Acute Assessment and plan: Noted on CT A/P. Hepatitis proile, CHARI, AMA, F-Actin, AFP, A1AT, negative on 08/06. ASCA and ANCA negative 08/07. Consult Nutrition. LIFESTYLE MODIFICATION: DIETARY ADVISE: Gradual weight loss of 7-10%. Moderate caloric restriction of 500-700 Kcal/day Eliminate or significantly reduce saturated fatty acids and high fructose corn syrup from diet Consider omega-3 fatty acids supplements Consider regular coffee consumption, 2-3 cups/day if can be tolerated EXERCISE ADVISE: Moderate exercise on treadmill, elliptical or in a pool, 4-5/week for 30-45 minutes. Resistance training 3 times/week Control of the components of metabolic syndrome (3) Constipation Current Visit: Yes Status: Acute Assessment and plan: Continue Lactulose, titrate for 2-4 BMs daily. Qualifiers: Constipation type: unspecified constipation type Qualified Code(s): K59.00 - Constipation, unspecified - Time Spent With Patient Total time spent is greater than 50% in coordination of care (as documented) at patient's floor/unit and/or counseling patient: GI History of Present Illness - Data of Consult Patient: known to practice within the last 3 years Consult date: 08/26/18 Requesting Physician: Jonathan Obrien - Consult Narrative Reason for consult: Alcoholic hepatitis History of present illness: Ms. Garvey is a 33 year old female with PMHx of chronic alcohol abuse (sober 4-5 weeks), HTN, kidney stones, seizures who was seen by Dr. Dye in office yesterday and was admitted due to worsening bilirubin, jaundice, and DF. She complains of fatigue, constipation, diarrhea, and abdominal pain. She denies fever, chills, chest pain, shortness of breath. She was recently admitted for alcoholic hepatitis from 08/06-08/12. DF at that time was 26.6 and did not require steroids. DF on this admission 45.4 and she was started on Solu-Medrol 40 mg daily. She reports taking Tylenol at home as well, and was started on Mucomyst. Procedures: None NSAIDs: None Anticoagulation: None Past Med Surg Social Fam HX - Past Medical History Medical history: hepatitis, hypertension, kidney stones, liver disease, seizures Additional medical history: tremors since born,. hypokalemia, gastric sleeve, cdiff, ESBL Psychiatric history: anxiety - Past Surgical History Surgical History: cholecystectomy Additional surgical history: gastric sleeve 2014. D&C x 2. UTERINE ABLAITION - Social History Smoking Status: Never smoker Smokeless Tobacco Status: No Alcohol use: none, recent Drug use: none - Family History Mother Living Status: Still Living Hx Family Cardiac Disorders: Yes (HTN, [place]) Hx Family GI Disorders: No Father Hx Family GI Disorders: No - Gastrointestinal Gastrointestinal: Present: as per HPI - Constitutional Constitutional: as per HPI - EENT Eyes: as per HPI Ears: Present: as per HPI Nose, mouth and throat: Present: as per HPI - Cardiovascular Cardiovascular ROS: Present: as per HPI - Respiratory Respiratory IM: Present: as per HPI - Genitourinary Genitourinary: Absent: change in color, Urinary frequency - Neurological ROS Neurological GI: Present: as per HPI - Hematologic/Lymphatic Hematologic/Lymphatic pediatric: Present: as per HPI - Musculoskeletal Musculoskeletal ROS GI: Present: as per HPI - Integumentary Integumentary GI: Present: as per HPI - Psychiatric ROS Psychiatric GI: Present: as per HPI - Endocrine Endocrine IM: Present: as per HPI - Constitutional Vitals: Temp Pulse Resp BP Pulse Ox 97.8 F 75 16 105/68 99 08/26/18 07:36 08/26/18 07:36 08/26/18 07:36 08/26/18 07:36 08/26/18 07:36 General appearance: Present: cooperative, A&O X 3, no acute distress, answers questions appropriately - Head Head exam: Present: atraumatic, normocephalic - Eye Eye exam: Present: scleral icterus - ENT ENT exam: Present: mucous membranes moist - Neck Neck exam general surgery: Present: normal inspection, trachea midline - Respiratory Respiratory exam: Present: CTAB. Absent: rales, rhonchi - Cardiovascular Cardiovascular exam: Present: RRR, +S1, +S2 - GI/Abdominal GI/Abdominal exam: Present: soft, tenderness, no peritoneal signs. Absent: distended, firm, guarding Additional comments: liver palpable and tender. - Rectal Rectal exam: Present: deferred - Extremities Exam Extremities exam: Present: warm - Neurological Exam Neurological exam: Present: no focal deficits - Psychiatric Psychiatric exam: Present: normal affect, normal mood - Skin Skin exam: Present: dry, intact, warm. Absent: normal color (Jaundice) Results - Labs CBC & Chem 7: 08/26/18 06:03 08/26/18 06:03 Labs: Last Result Calcium 7.5 mg/dL (8.6-10.3) L 08/26/18 06:03 Entire Visit Hgb 8.0 g/dL (11.5-15.4) L 08/26/18 06:03 Hct 24.6 % (35.3-44.9) L 08/26/18 06:03 PT 17.8 Seconds (9.4-12.1) H 08/26/18 06:03 Total Bilirubin 18.7 mg/dL (0.3-1.0) H 08/26/18 06:03 AST 148 Units/L (13-39) H 08/26/18 06:03 ALT 32 Units/L (7-52) 08/26/18 06:03 Ammonia 93 mcmol/L (16-53) H 08/26/18 06:03 Acetaminophen < 10 mcg/mL (10-20) L 08/26/18 06:03 - ABG ABG results: PT/INR, D-dimer PT 17.8 Seconds (9.4-12.1) H 08/26/18 06:03 - Impressions Impressions Abdomen/Pelvis CT 08/25/18 17:36 IMPRESSION: 1. Cystic areas in the posterior cul-de-sac, new since the recent CT. There is also a small amount of free pelvic fluid. The cysts appear separate from the ovaries and may represent juarez-ovarian cysts, possibly hydrosalpinx or loculated fluid. Consider ultrasound follow-up. 2. Hepatomegaly with severe hepatic steatosis. No focal hepatic abnormality. Borderline splenomegaly. 3. Previous sleeve gastrectomy and cholecystectomy. D/ / 08/25/2018 20:30:11 Robert Sierra MD / savana Interpreting Provider: Robert Sierra MD Chest X-Ray 08/25/18 17:41 IMPRESSION: No acute cardiopulmonary disease or significant interval change from prior study 08/06/2018 D/ / Carlos Quezada / Carlos Quezada Interpreting Provider: Carlos Quezada Consult Discharge Plan - Plan Referrals: Vero Ryan, ROAD ENGINEER [Advanced Practice Nurse] - 09/03/18 1:00 pm
[2018-08-26] MEDS: Ondansetron 4 MG/2 ML VIAL IVP PRN (12:41)
--- NOTE | 2018-08-26 13:14 | Internal Med Progress Note ---
Hospitalist Progress Note - Encounter Date of Encounter: 08/26/18 Time of Encounter: 13:12 - Subjective Interval History: Pt feels better, no new issues. - Exam Vitals: Temp Pulse Resp BP Pulse Ox 98.1 F 91 18 122/83 99 08/26/18 11:39 08/26/18 11:39 08/26/18 11:39 08/26/18 11:39 08/26/18 11:39 Exam: Gne: severe jaudniced heart: s1, S2, RRR Lungs: CTAB, -w/c/r abd: soft still has mild tenderness to palaption LE: trace edema skin: very jaundiced - Summary of Assessment and Plan Summary of Assessment and Plan: this is a 33 yof who presentd with kernicterus 1) kernicterus: bili is trending down it's 18 will cont mucomyst and along with steroid hold off on beta blcokers 2) headache: likely tension heahace will give oxy PRN as needed 3)abd pain: CT esentially nromal will get trasnvagial US d/c abx 4)DVT prophlaixs: pt has hematoma from last time, will do SCD's only 6)diet: low protein diet 7) dispo: improivng, likey home in a few days once bili is down in the 10 range Time: 35min - Time Spent with Patient Total time spent is greater than 50% in coordination of care (as documented) at patient's floor/unit and/or counseling patient: Internal Medicine: Result - Labs CBC & Chem 7: 08/26/18 06:03 08/26/18 06:03 Labs: Short CBC 08/26/18 Range/Units 06:03 WBC 3.9 L (4.3-11.1) K/mcL Hgb 8.0 L (11.5-15.4) g/dL Hct 24.6 L (35.3-44.9) % Plt Count 125 L (140-400) K/mcL Neutrophils # 3.2 (1.6-8.9) K/mcL BMP 08/26/18 06:03 Sodium 136 Potassium 3.4 L Chloride 108 H Carbon Dioxide 23 BUN 2 L Creatinine 0.28 L Glucose 155 H Calcium 7.5 L Liver Function 08/26/18 Range/Units 06:03 Total Bilirubin 18.7 H (0.3-1.0) mg/dL AST 148 H (13-39) Units/L ALT 32 (7-52) Units/L Alkaline Phosphatase 101 (34-104) Units/L Albumin 2.2 L (3.5-5.7) g/dL - ABG Interpretation ABG results: PT/INR, D-dimer PT 17.8 Seconds (9.4-12.1) H 08/26/18 06:03 - Impressions Impressions Abdomen/Pelvis CT 08/25/18 17:36 IMPRESSION: 1. Cystic areas in the posterior cul-de-sac, new since the recent CT. There is also a small amount of free pelvic fluid. The cysts appear separate from the ovaries and may represent juarez-ovarian cysts, possibly hydrosalpinx or loculated fluid. Consider ultrasound follow-up. 2. Hepatomegaly with severe hepatic steatosis. No focal hepatic abnormality. Borderline splenomegaly. 3. Previous sleeve gastrectomy and cholecystectomy. D/ / 08/25/2018 20:30:11 Robert Sierra MD / savana Interpreting Provider: Robert Sierra MD Chest X-Ray 08/25/18 17:41 IMPRESSION: No acute cardiopulmonary disease or significant interval change from prior study 08/06/2018 D/ / Carlos Quezada / Carlos Quezada Interpreting Provider: Carlos Quezada Consult Discharge Plan - Plan Referrals: Vero Ryan CNP [Advanced Practice Nurse] - 09/03/18 1:00 pm Scott Dye MD [Partnered Physician] - (Sent web request on 08-26-18 @ [phone])
[2018-08-27 03:45] LABS: Basophils % 0.3 %; Eosinophils % 0.5 %; Hematocrit 25.5 % (35.3-44.9); Immature Granulocytes % 0.9 % (0-4); Lymphocytes # 1.5 K/mcL (0.6-4.6); Lymphocytes % 23.3 %; Mean Corpuscular HGB Conc 31.4 g/dL (31.6-35.5); Mean Corpuscular Hemoglobin 33.3 pg (28.0-33.3); Mean Corpuscular Volume 106.3 fL (83.0-100.0); Mean Platelet Volume 11.7 fL (9.4-12.4); Monocytes # 0.6 K/mcL (0.0-1.3); Neutrophils # 4.3 K/mcL (1.6-8.9); Platelet Count 172 K/mcL (140-400); Red Cell Distribution Width 13.2 % (11.5-14.5)
[2018-08-27 04:04] LABS: Alanine Aminotransferase 33 Units/L (7-52); Albumin 2.3 g/dL (3.5-5.7); Albumin/Globulin Ratio 0.9 (1.1-2.2); Alkaline Phosphatase 121 Units/L (34-104); Aspartate Amino Transferase 140 Units/L (13-39); BUN/Creatinine Ratio 5 (6-26); Blood Urea Nitrogen 2 mg/dL (6-20); Calcium 8.1 mg/dL (8.6-10.3); Carbon Dioxide 21 mEq/L (23-29); Chloride 111 mEq/L (98-107); Globulin 2.5 g/dL (2.4-3.5); Glucose 91 mg/dL (70-105); Osmolality,Calculated 288 (280-300); Potassium 3.4 mEq/L (3.5-5.1); Sodium 141 mEq/L (136-145); Total Protein 4.8 g/dL (6.4-8.9); eGFR For Non-African Americans > 60 (> 60)
[2018-08-27] MEDS: Famotidine 20 MG/2 ML VIAL IVP SCH ×2 (05:08→16:39)
[2018-08-27] MEDS: Thiamine (B-1) 100 MG TABLET PO SCH (09:00)
[2018-08-27] MEDS: Sucralfate 1 GM TABLET PO SCH ×4 (09:00→19:55)
[2018-08-27] MEDS: MethylPREDNISolone 40 MG/ML VIAL IVP SCH (09:03)
[2018-08-27] MEDS: Potassium Chloride Elixir 20 MEQ/15 ML UDC PO SCH ×2 (09:03→16:39)
[2018-08-27] MEDS: Multivitamin Liquid 15 ML UDC PO SCH (09:03)
[2018-08-27] MEDS: Ondansetron 4 MG/2 ML VIAL IVP PRN ×2 (09:03→23:46)
[2018-08-27] MEDS: Lactulose Oral Soln 20 GM/30 ML UDC PO SCH ×2 (09:03→19:55)
[2018-08-27] MEDS: *HR* OxyCODONE Immed Rel 5 MG TABLET PO PRN ×2 (09:04→19:55)
[2018-08-27] MEDS: *HR* LORazepam 2 MG/ML VIAL IVP PRN ×2 (11:29→21:50)
[2018-08-27 13:37] LABS: Magnesium 1.9 mg/dL (1.6-2.6)
--- NOTE | 2018-08-27 18:48 | Internal Med Progress Note ---
Hospitalist Progress Note - Encounter Date of Encounter: 08/27/18 Time of Encounter: 11:00 - Subjective Interval History: Patient does not quite feel herself today and is still quite jaundiced with continued elevated LFTs but slightly improving - Exam Vitals: Temp Pulse Resp BP Pulse Ox 97.9 F 85 18 117/86 92 08/27/18 16:30 08/27/18 16:30 08/27/18 16:30 08/27/18 16:30 08/27/18 07:35 Exam: Gen. generalized weakness ENT: Mucosal membranes moist Respiratory: Lungs are clear to auscultation bilaterally without any wheezing rhonchi or rales Cardiovascular: Normal S1 and S2 regular rate rhythm no murmurs rubs or gallops Abdomen: Soft, nontender and nondistended with positive bowel sounds Extremities: No lower extremity edema Skin: Jaundiced - Assessment and Plan (1) Acute alcoholic hepatitis Current Visit: No Status: Acute Assessment and Plan: Patient with elevated LFTs but slightly improving GI following with recommendations for IV Solu-Medrol Appreciate any further recommendations (2) Hyperbilirubinemia Current Visit: No Status: Acute Assessment and Plan: Secondary to alcohol hepatitis as above (3) Jaundice Current Visit: No Status: Acute Assessment and Plan: Secondary to and management as above (4) Transaminitis Current Visit: No Status: Acute Assessment and Plan: Secondary to and management as above (5) Weakness Current Visit: No Status: Acute Assessment and Plan: Patient still feels generalized weakness secondary to alcohol hepatitis above (6) Alcohol abuse Current Visit: No Status: Chronic Assessment and Plan: Alcohol cessation - Time Spent with Patient Total time spent is greater than 50% in coordination of care (as documented) at patient's floor/unit and/or counseling patient: Internal Medicine: Result - Labs CBC & Chem 7: 08/27/18 03:32 08/27/18 03:32 Labs: Short CBC 08/27/18 Range/Units 03:32 WBC 6.5 D (4.3-11.1) K/mcL Hgb 8.0 L (11.5-15.4) g/dL Hct 25.5 L (35.3-44.9) % Plt Count 172 (140-400) K/mcL Neutrophils # 4.3 (1.6-8.9) K/mcL BMP 08/27/18 03:32 Sodium 141 Potassium 3.4 L Chloride 111 H Carbon Dioxide 21 L BUN 2 L Creatinine 0.42 L Glucose 91 Calcium 8.1 L Liver Function 08/27/18 Range/Units 03:32 Total Bilirubin 17.0 H (0.3-1.0) mg/dL AST 140 H (13-39) Units/L ALT 33 (7-52) Units/L Alkaline Phosphatase 121 H (34-104) Units/L Albumin 2.3 L (3.5-5.7) g/dL - ABG Interpretation ABG results: PT/INR, D-dimer PT 17.8 Seconds (9.4-12.1) H 08/26/18 06:03 Consult Discharge Plan - Plan Referrals: Vero Ryan CNP [Advanced Practice Nurse] - 09/03/18 1:00 pm Scott Dye MD [Partnered Physician] - (Sent web request on 08-26-18 @ [phone])
[2018-08-28] MEDS: *HR* OxyCODONE Immed Rel 5 MG TABLET PO PRN ×2 (04:43→17:40)
[2018-08-28 05:23] LABS: Alanine Aminotransferase 46 Units/L (7-52); Albumin 2.6 g/dL (3.5-5.7); Alkaline Phosphatase 126 Units/L (34-104); Aspartate Amino Transferase 189 Units/L (13-39); BUN/Creatinine Ratio 5 (6-26); Bilirubin,Total 16.5 mg/dL (0.3-1.0); Blood Urea Nitrogen 2 mg/dL (6-20); Calcium 8.4 mg/dL (8.6-10.3); Carbon Dioxide 26 mEq/L (23-29); Chloride 109 mEq/L (98-107); Globulin 2.6 g/dL (2.4-3.5); Glucose 92 mg/dL (70-105); Osmolality,Calculated 286 (280-300); Potassium 3.6 mEq/L (3.5-5.1); Sodium 140 mEq/L (136-145); Total Protein 5.2 g/dL (6.4-8.9); eGFR For Non-African Americans > 60 (> 60)
[2018-08-28 05:28] LABS: Basophils % 0.5 %; Eosinophils % 0.7 %; Hematocrit 26.7 % (35.3-44.9); Hemoglobin 8.5 g/dL (11.5-15.4); Lymphocytes # 1.3 K/mcL (0.6-4.6); Lymphocytes % 22.6 %; Mean Corpuscular HGB Conc 31.8 g/dL (31.6-35.5); Mean Corpuscular Hemoglobin 33.7 pg (28.0-33.3); Mean Platelet Volume 11.7 fL (9.4-12.4); Monocytes # 0.5 K/mcL (0.0-1.3); Monocytes % 8.1 %; Neutrophils # 3.9 K/mcL (1.6-8.9); Platelet Count 167 K/mcL (140-400); Red Blood Count 2.52 M/mcL (3.82-4.97); Red Cell Distribution Width 13.2 % (11.5-14.5); Segmented Neutrophils % 67.1 %
[2018-08-28] MEDS: Famotidine 20 MG/2 ML VIAL IVP SCH ×2 (06:45→17:41)
[2018-08-28] MEDS: Sucralfate 1 GM TABLET PO SCH ×4 (08:33→21:35)
[2018-08-28] MEDS: Lactulose Oral Soln 20 GM/30 ML UDC PO SCH ×2 (08:33→21:35)
[2018-08-28] MEDS: Multivitamin Liquid 15 ML UDC PO SCH (08:33)
[2018-08-28] MEDS: Thiamine (B-1) 100 MG TABLET PO SCH (08:33)
[2018-08-28] MEDS: MethylPREDNISolone 40 MG/ML VIAL IVP SCH (08:33)
[2018-08-28] MEDS: Potassium Chloride Elixir 20 MEQ/15 ML UDC PO SCH ×2 (08:33→17:39)
[2018-08-28] MEDS: *HR* LORazepam 2 MG/ML VIAL IVP PRN (11:21)
[2018-08-28] MEDS: hydrOXYzine pamoate 25 MG CAPSULE PO PRN (15:51)
[2018-08-28] MEDS: Ondansetron 4 MG/2 ML VIAL IVP PRN (17:40)
--- NOTE | 2018-08-28 18:45 | Internal Med Progress Note ---
Hospitalist Progress Note - Encounter Date of Encounter: 08/28/18 Time of Encounter: 11:00 - Subjective Interval History: Patient with continued abdominal discomfort with slight improvement in liver transaminases. Appreciate further recommendations from GI. - Exam Vitals: Temp Pulse Resp BP Pulse Ox 98.4 F 84 17 126/88 99 08/28/18 17:08 08/28/18 17:08 08/28/18 17:08 08/28/18 17:08 08/28/18 17:08 Exam: Gen. generalized weakness ENT: Mucosal membranes moist Respiratory: Lungs are clear to auscultation bilaterally without any wheezing rhonchi or rales Cardiovascular: Normal S1 and S2 regular rate rhythm no murmurs rubs or gallops Abdomen: Soft, nontender and nondistended with positive bowel sounds Extremities: No lower extremity edema Skin: Jaundiced - Assessment and Plan (1) Acute alcoholic hepatitis Current Visit: No Status: Acute Assessment and Plan: Patient with elevated LFTs but slightly improving GI following with recommendations for IV Solu-Medrol Appreciate any further recommendations (2) Hyperbilirubinemia Current Visit: No Status: Acute Assessment and Plan: Secondary to alcohol hepatitis as above (3) Jaundice Current Visit: No Status: Acute Assessment and Plan: Secondary to and management as above (4) Transaminitis Current Visit: No Status: Acute Assessment and Plan: Secondary to and management as above (5) Weakness Current Visit: No Status: Acute Assessment and Plan: Patient still feels generalized weakness secondary to alcohol hepatitis above (6) Alcohol abuse Current Visit: No Status: Chronic Assessment and Plan: Alcohol cessation - Time Spent with Patient Total time spent is greater than 50% in coordination of care (as documented) at patient's floor/unit and/or counseling patient: Internal Medicine: Result - Labs CBC & Chem 7: 08/28/18 04:45 08/28/18 04:45 Labs: Short CBC 08/28/18 Range/Units 04:45 WBC 5.8 (4.3-11.1) K/mcL Hgb 8.5 L (11.5-15.4) g/dL Hct 26.7 L (35.3-44.9) % Plt Count 167 (140-400) K/mcL Neutrophils # 3.9 (1.6-8.9) K/mcL BMP 08/28/18 04:45 Sodium 140 Potassium 3.6 Chloride 109 H Carbon Dioxide 26 BUN 2 L Creatinine 0.42 L Glucose 92 Calcium 8.4 L Liver Function 08/28/18 Range/Units 04:45 Total Bilirubin 16.5 H (0.3-1.0) mg/dL AST 189 H (13-39) Units/L ALT 46 (7-52) Units/L Alkaline Phosphatase 126 H (34-104) Units/L Albumin 2.6 L (3.5-5.7) g/dL - ABG Interpretation ABG results: PT/INR, D-dimer PT 17.8 Seconds (9.4-12.1) H 08/26/18 06:03 - Impressions Impressions Pelvis Ultrasound 08/26/18 15:00 IMPRESSION: 1. 4.3 cm mildly complex left ovarian cyst which could reflect a hemorrhagic cyst. 2. 2.6 cm intramural uterine fibroid. 3. Small volume free fluid. RECOMMENDATIONS: 4.3 cm indeterminate ovarian cyst Recommend pelvic US follow-up in 6-12 weeks; if unchanged, continue follow-up with US OR MRI with IV contrast - if follow-up studies do not confirm endometrioma or dermoid, consider surgical evaluation. If cyst has internal nodule without blood flow/enhancing, recommend pelvic MRI with IV contrast or surgical evaluation. Reference: Radiology 2010 Jan;256(3):473-29 D/ / 08/26/2018 16:15:31 Lynda Sanchez MD / [email or web address] Interpreting Provider: Lynda Sanchez MD Consult Discharge Plan - Plan Referrals: Vero Ryan CNP [Advanced Practice Nurse] - 09/03/18 1:00 pm Scott Dye MD [Partnered Physician] - (Sent web request on 08-26-18 @ [phone])
[2018-08-29] MEDS: hydrOXYzine pamoate 25 MG CAPSULE PO PRN (04:11)
[2018-08-29 04:13] LABS: Basophils % 0.3 %; Eosinophils % 0.7 %; Hematocrit 27.4 % (35.3-44.9); Hemoglobin 8.6 g/dL (11.5-15.4); Immature Granulocytes % 1.2 % (0-4); Immature Platelets 4.3 % (1.1-6.1); Lymphocytes # 1.3 K/mcL (0.6-4.6); Mean Corpuscular HGB Conc 31.4 g/dL (31.6-35.5); Mean Corpuscular Hemoglobin 33.6 pg (28.0-33.3); Mean Platelet Volume 11.3 fL (9.4-12.4); Monocytes # 0.5 K/mcL (0.0-1.3); Monocytes % 8.2 %; Neutrophils # 3.8 K/mcL (1.6-8.9); Platelet Count 151 K/mcL (140-400); Red Blood Count 2.56 M/mcL (3.82-4.97); Red Cell Distribution Width 13.2 % (11.5-14.5); Segmented Neutrophils % 66.6 %
[2018-08-29 04:45] LABS: Alanine Aminotransferase 50 Units/L (7-52); Albumin 2.5 g/dL (3.5-5.7); Alkaline Phosphatase 123 Units/L (34-104); Aspartate Amino Transferase 194 Units/L (13-39); BUN/Creatinine Ratio 8 (6-26); Bilirubin,Total 15.4 mg/dL (0.3-1.0); Blood Urea Nitrogen 3 mg/dL (6-20); Calcium 8.2 mg/dL (8.6-10.3); Carbon Dioxide 27 mEq/L (23-29); Chloride 107 mEq/L (98-107); Globulin 2.6 g/dL (2.4-3.5); Glucose 93 mg/dL (70-105); Osmolality,Calculated 286 (280-300); Potassium 3.9 mEq/L (3.5-5.1); Sodium 140 mEq/L (136-145); Total Protein 5.1 g/dL (6.4-8.9); eGFR For Non-African Americans > 60 (> 60)
[2018-08-29] MEDS: Famotidine 20 MG/2 ML VIAL IVP SCH ×2 (05:57→16:03)
[2018-08-29] MEDS: Sucralfate 1 GM TABLET PO SCH ×3 (08:01→16:05)
[2018-08-29] MEDS: Thiamine (B-1) 100 MG TABLET PO SCH (08:02)
[2018-08-29] MEDS: Potassium Chloride Elixir 20 MEQ/15 ML UDC PO SCH ×2 (08:04→16:05)
[2018-08-29] MEDS: MethylPREDNISolone 40 MG/ML VIAL IVP SCH (08:06)
[2018-08-29] MEDS: Lactulose Oral Soln 20 GM/30 ML UDC PO SCH (08:07)
[2018-08-29] MEDS: Ondansetron 4 MG/2 ML VIAL IVP PRN (08:07)
[2018-08-29] MEDS: *HR* LORazepam 2 MG/ML VIAL IVP PRN (08:07)
[2018-08-29] MEDS: Multivitamin Liquid 15 ML UDC PO SCH (08:08)
--- NOTE | 2018-08-29 10:16 | Internal Med Progress Note ---
Hospitalist Progress Note - Encounter Date of Encounter: 08/29/18 - Exam Vitals: Temp Pulse Resp BP Pulse Ox 98.6 F 80 14 133/85 98 08/29/18 06:36 08/29/18 06:36 08/29/18 06:36 08/29/18 06:36 08/29/18 06:36 - Assessment and Plan (1) Acute alcoholic hepatitis Current Visit: No Status: Acute Assessment and Plan: Patient with elevated LFTs but slightly improving Serum total bilirubin: 18.7->17.0->16.5->15.4 GI following with recommendations for IV Solu-Medrol Appreciate any further recommendations as patient symptomatically not improving much (2) Hyperbilirubinemia Current Visit: No Status: Acute Assessment and Plan: Secondary to alcohol hepatitis as above Continue ursodiol (3) Jaundice Current Visit: No Status: Acute Assessment and Plan: Secondary to and management as above (4) Transaminitis Current Visit: No Status: Acute Assessment and Plan: Secondary to and management as above (5) Weakness Current Visit: No Status: Acute Assessment and Plan: Patient still feels generalized weakness secondary to alcohol hepatitis above (6) Alcohol abuse Current Visit: No Status: Chronic Assessment and Plan: Alcohol cessation - Time Spent with Patient Total time spent is greater than 50% in coordination of care (as documented) at patient's floor/unit and/or counseling patient: Internal Medicine: Result - Labs CBC & Chem 7: 08/29/18 03:58 08/29/18 03:58 Labs: Short CBC 08/29/18 Range/Units 03:58 WBC 5.7 (4.3-11.1) K/mcL Hgb 8.6 L (11.5-15.4) g/dL Hct 27.4 L (35.3-44.9) % Plt Count 151 (140-400) K/mcL Neutrophils # 3.8 (1.6-8.9) K/mcL BMP 08/29/18 03:58 Sodium 140 Potassium 3.9 Chloride 107 Carbon Dioxide 27 BUN 3 L Creatinine 0.40 L Glucose 93 Calcium 8.2 L Liver Function 08/29/18 Range/Units 03:58 Total Bilirubin 15.4 H (0.3-1.0) mg/dL AST 194 H (13-39) Units/L ALT 50 (7-52) Units/L Alkaline Phosphatase 123 H (34-104) Units/L Albumin 2.5 L (3.5-5.7) g/dL - ABG Interpretation ABG results: PT/INR, D-dimer PT 17.8 Seconds (9.4-12.1) H 08/26/18 06:03 - Impressions Impressions Pelvis Ultrasound 08/26/18 15:00 IMPRESSION: 1. 4.3 cm mildly complex left ovarian cyst which could reflect a hemorrhagic cyst. 2. 2.6 cm intramural uterine fibroid. 3. Small volume free fluid. RECOMMENDATIONS: 4.3 cm indeterminate ovarian cyst Recommend pelvic US follow-up in 6-12 weeks; if unchanged, continue follow-up with US OR MRI with IV contrast - if follow-up studies do not confirm endometrioma or dermoid, consider surgical evaluation. If cyst has internal nodule without blood flow/enhancing, recommend pelvic MRI with IV contrast or surgical evaluation. Reference: Radiology 2010 Jan;256(3):943-54 D/ / 08/26/2018 16:15:31 Lynda Sanchez MD / kendal Interpreting Provider: Lynda Sanchez MD Consult Discharge Plan - Plan Referrals: Vero Ryan CNP [Advanced Practice Nurse] - 09/03/18 1:00 pm Scott Dye MD [Partnered Physician] - (Sent web request on 08-26-18 @ [phone])
[2018-08-29 10:46] VITALS: BP 115/81
--- NOTE | 2018-08-29 14:05 | Gastroenterology Progress Note ---
Date of Encounter: 08/29/18 Time of Encounter: 13:00 - Assessment and plan (1) Alcoholic hepatitis Current Visit: Yes Status: Acute Assessment and plan: With High DF on admission, on Iv steroids Rec: PO Medrol 32 mg x 4weeks , F/U GI Qualifiers: Qualified Code(s): K70.10 - Alcoholic hepatitis without ascites - Time Spent With Patient Total time spent is greater than 50% in coordination of care (as documented) at patient's floor/unit and/or counseling patient: - Subjective Interval history: Complaining of right side pain but not new. Eating normal diet - Constitutional Vitals: Temp Pulse Resp BP Pulse Ox 97.5 F L 84 16 115/81 97 08/29/18 10:42 08/29/18 10:42 08/29/18 10:42 08/29/18 10:42 08/29/18 10:42 General appearance: Present: cooperative, A&O X 3, no acute distress, answers questions appropriately - Eye Eye exam: Present: scleral icterus - GI/Abdominal Additional comments: Soft <hepatomegaly with tanderness Results - Labs CBC & Chem 7: 08/29/18 03:58 08/29/18 03:58 Labs: Last Result Calcium 8.2 mg/dL (8.6-10.3) L 08/29/18 03:58 Entire Visit Hgb 8.6 g/dL (11.5-15.4) L 08/29/18 03:58 Hct 27.4 % (35.3-44.9) L 08/29/18 03:58 PT 17.8 Seconds (9.4-12.1) H 08/26/18 06:03 Total Bilirubin 15.4 mg/dL (0.3-1.0) H 08/29/18 03:58 AST 194 Units/L (13-39) H 08/29/18 03:58 ALT 50 Units/L (7-52) 08/29/18 03:58 Ammonia 54 mcmol/L (16-53) H 08/28/18 04:45 Acetaminophen < 10 mcg/mL (10-20) L 08/26/18 06:03 - ABG ABG results: PT/INR, D-dimer PT 17.8 Seconds (9.4-12.1) H 08/26/18 06:03 - Impressions Impressions Pelvis Ultrasound 08/26/18 15:00 IMPRESSION: 1. 4.3 cm mildly complex left ovarian cyst which could reflect a hemorrhagic cyst. 2. 2.6 cm intramural uterine fibroid. 3. Small volume free fluid. RECOMMENDATIONS: 4.3 cm indeterminate ovarian cyst Recommend pelvic US follow-up in 6-12 weeks; if unchanged, continue follow-up with US OR MRI with IV contrast - if follow-up studies do not confirm endometrioma or dermoid, consider surgical evaluation. If cyst has internal nodule without blood flow/enhancing, recommend pelvic MRI with IV contrast or surgical evaluation. Reference: Radiology 2010 Jan;256(3):943-54 D/ / 08/26/2018 16:15:31 Lynda Sanchez MD / kendal Interpreting Provider: Lynda Sanchez MD Consult Discharge Plan - Plan Referrals: Vero Ryan CNP [Advanced Practice Nurse] - 09/03/18 1:00 pm Scott Dye MD [Partnered Physician] - (Sent web request on 08-26-18 @ [phone])
--- NOTE | 2018-08-29 15:06 | Discharge Summary ---
Orders not resulted at time of discharge: Pending orders 08/25/18 18:19 Culture,Blood [BC] Routine 08/30/18 04:00 Complete Blood Count [HEME] AM 0400 Comprehensive Metabolic Panel AM 0400 09/04/18 09:00 CMP [Comprehensive Metabolic Panel] Routine Date of Encounter: 08/29/18 Time of Encounter: 11:00 - Discharge Diagnosis (1) Acute alcoholic hepatitis Priority: Primary Status: Acute (2) Hyperbilirubinemia Priority: Primary Status: Acute (3) Jaundice Priority: Primary Status: Acute (4) Transaminitis Priority: Primary Status: Acute (5) Weakness Priority: Primary Status: Acute (6) Alcohol abuse Priority: Primary Status: Chronic Hospital course: Patient is a 33-year-old female with past medical history significant for alcohol hepatitis who presented GI office due to jaundice and abdominal pain. In the ER, patient was found to have a total bili of/0.7 with an AST of 148. Abdominal CT showed hepatomegaly with severe hepatic steatosis borderline splenomegaly. She was admitted for further management with GI consult. The patients hospital stay she was treated with IV Solu-Medrol and ursodiol per GI recommendations. She will be discharged to complete a four-week course of Medrol dose pack and to follow-up with GI as an outpatient. - Time Spent with Patient Total time spent providing and/or coordinating discharge services: Time spent: Less than 30 minutes - Discharge Medications Prescriptions: New Lactulose 20 gm PO BID #60 udc MethylPREDNISolone [Medrol] 32 mg PO DAILY 30 Days #30 tablet Multivitamin Liquid [Cerovite Liquid] 15 ml PO DAILY #120 udc Sucralfate [Carafate] 1 gm PO QIDAC #120 tablet Thiamine (B-1) [Vitamin B-1] 100 mg PO DAILY #30 tablet Continue Metoprolol [Lopressor] 12.5 mg PO BID Potassium Chloride [K-Tab ER] 10 meq PO BID Montelukast [Singulair] 10 mg PO DAILY PRN PRN Reason: Allergy Symptoms Home Medications: Metoprolol [Lopressor] 12.5 mg PO BID 08/06/18 [History] Potassium Chloride [K-Tab ER] 10 meq PO BID 08/25/18 [History] Montelukast [Singulair] 10 mg PO DAILY PRN 08/26/18 [History] Lactulose 20 gm PO BID #60 udc 08/29/18 [Rx] MethylPREDNISolone [Medrol] 32 mg PO DAILY 30 Days #30 tablet 08/29/18 [Rx] Multivitamin Liquid [Cerovite Liquid] 15 ml PO DAILY #120 udc 08/29/18 [Rx] Sucralfate [Carafate] 1 gm PO QIDAC #120 tablet 08/29/18 [Rx] Thiamine (B-1) [Vitamin B-1] 100 mg PO DAILY #30 tablet 08/29/18 [Rx] Allergies/Adverse Reactions: Allergy/AdvReac Type Severity Reaction Status Date / Time hydromorphone [From Dilaudid] AdvReac Hallucinati Verified 08/26/18 10:40 ng Date of admission: 08/25/18 18:50 Primary care physician: PCP NONE Consults: 08/25/18 18:00 Consult to Gastroenterology [CONS] Routine Consulting Provider: Gastroenterology Bibiana Reason for Consult: patient form his office Call Completed: Yes 08/26/18 11:19 Consult to Nutrition [CONS] Routine Comment: Fatty liver, alcoholic hepatitis Consulting Provider: NUTRITION Reason for Dietary Consult: Diet Education - Constitutional Vitals: Temp Pulse Resp BP Pulse Ox 97.5 F L 84 16 115/81 97 08/29/18 10:42 08/29/18 10:42 08/29/18 10:42 08/29/18 10:42 08/29/18 10:42 General appearance: Present: cachectic, cooperative, A&O X 2 Exam: Gen. generalized weakness Skin: Jaundiced - Patient Status Disposition: Home, Self-Care - Discharge Instructions Follow Up With: Vero Ryan CNP [Advanced Practice Nurse] - 09/03/18 1:00 pm (Follow up as scheduled. ) Scott Dye MD [Partnered Physician] - (Sent web request on 08-26-18 @ [phone])
== END 2018-08-29 16:13 | disposition home or self-care (01) | DRG 280 ==
LOC: 3BNU → 2NNU 18:35 → SUATTDRO 18:50 → 3ANU 08-28 17:01
PROVIDERS: ADMIT Internal Medicine; ATTEND Hospitalist

== ENCOUNTER 2018-09-01 10:31 | Inpatient (IN) ==
[2018-09-01] MEDS ORDERED: 0.9 % Sodium Chloride 1,000 ML IVC ONE (11:22)
[2018-09-01] MEDS ORDERED: Ondansetron 4 MG/2 ML VIAL IVP ONE (11:22)
[2018-09-01] MEDS ORDERED: Famotidine 20 MG/2 ML VIAL IVP ONE (11:22)
[2018-09-01] MEDS ORDERED: *HR* FentaNYL (PF) 100 MCG/2 ML VIAL IVP ONE ×2 (11:23→12:40)
--- NOTE | 2018-09-01 11:25 | Emergency Department Note ---
Disposition Clinical Impression: Alcoholic hepatitis, Hyperbilirubinemia, Transaminitis, Dehydration Disposition: Admitted As Inpatient Condition: Fair Referrals: Vero Ryan CNP [Primary Care Provider] - Forms: ED Satisfaction Letter, Work/School Release Time of Disposition: 14:28 General Adult HPI - General Chief complaint: ED Abdominal Pain Stated complaint: "dying from liver failure" Time Seen by Provider: 09/01/18 11:06 Source: patient Limitations: no limitations - History of Present Illness HPI Narrative: Patient presents emergency Department with progressive persistent abdominal pain nausea vomiting diarrhea generalized weakness subjective chills, and slightly increased confusion. The patient states she was discharged hospital 2 days ago after having been admitted for her progressive liver failure related to prior alcohol abuse. She has been clean for 5 weeks. She states that she cannot undergo a transplant because she has not been cleaning long enough. She states that her numbers were slightly improving when she was in the hospital so they let her go home on steroids she states that she feels worse. She was told by her GI doctor to come back to the emergency department with any worsening symptoms so she is here. She denies any headache neck pain or neck stiffness she has not had actual fever she feels like she is more yellow than usual and feels like her ammonia level is elevated. She denies chest pain shortness of breath cough or sputum production she does endorse generalized abdominal pain, which is chronic in nature, no localized area of abdominal pain. No urinary symptoms although decreased urine output by her report. She denies any focal numbness or weakness she denies any black or bloody stools she is having diarrhea but was placed on medication to make her have more increased bowel movements, for her elevated ammonia level when she was admitted. Patient denies any easy bruising or bleeding from her gums. She denies any other acute concerns. She states that this is the exact reason she was admitted to the hospital previously. No history of ascites. Pain Scale: 7 - Related Data Home Medications Medication Instructions Recorded Confirmed Metoprolol [Lopressor] 12.5 mg PO BID 08/06/18 08/26/18 Potassium Chloride [K-Tab ER] 10 meq PO BID 08/25/18 08/26/18 Montelukast [Singulair] 10 mg PO DAILY PRN 08/26/18 08/26/18 Previous Rx's Medication Instructions Recorded Lactulose 20 gm PO BID #60 udc 08/29/18 MethylPREDNISolone [Medrol] 32 mg PO DAILY 30 Days #30 tablet 08/29/18 Multivitamin Liquid [Cerovite 15 ml PO DAILY #120 udc 08/29/18 Liquid] Sucralfate [Carafate] 1 gm PO QIDAC #120 tablet 08/29/18 Thiamine (B-1) [Vitamin B-1] 100 mg PO DAILY #30 tablet 08/29/18 Allergies Allergy/AdvReac Type Severity Reaction Status Date / Time hydromorphone [From Dilaudid] AdvReac Hallucinati Verified 08/26/18 10:40 ng All systems ED: reviewed and negative except as stated. Review of Systems: As Per HPI Past Medical History - Past Medical History Medical history: Reports: hepatitis, hypertension, kidney stones, liver disease, seizures Surgical history: Reports: cholecystectomy Psychiatric history: Reports: anxiety [employer] history: Reports: bilateral tubal ligation, other - Social History Smoking Status: Never smoker Smokeless Tobacco Status: No Alcohol use: Reports: none, recent Drug use: Reports: none Physical Exam - General Limitations: no limitations General appearance: alert, in no apparent distress - Head Head exam: atraumatic - Eye Eye exam: Present: PERRL, EOMI, scleral icterus. Absent: conjunctival injection, nystagmus - ENT ENT exam: normal exam, normal oropharynx, mucous membranes moist, other (Sublingual icterus noted) - Neck Neck exam: Present: normal inspection, full ROM, other (No meningeal sign). Absent: lymphadenopathy, thyromegaly - Chest Chest inspection: Present: normal inspection, symmetric chest wall rise. Absent: tenderness - Respiratory Respiratory exam: Present: normal lung sounds bilaterally. Absent: respiratory distress, accessory muscle use - Cardiovascular Cardiovascular exam: Present: normal rhythm, tachycardia (Heart rate of 105, patient reports baseline heart rate is between 100 and 120 always). Absent: JVD - Abdominal Exam Abdominal exam: Present: soft, tenderness (Diffuse mild tenderness of the abdomen, without rebound guarding or peritoneal sign without shake tenderness or percussion tenderness), normal bowel sounds. Absent: distention, guarding, rebound, rigidity, Santamaria's sign, Rovsing's sign, ascites (No ascites), pulsatile mass Abdominal tenderness: Present: diffuse, mild - Rectal Exam Rectal exam: Present: deferred - Extremities Exam Extremities exam: Present: normal inspection, full ROM, normal capillary refill. Absent: joint swelling, calf tenderness - Expanded Lower Extremity Exam Hip/Pelvis exam: Present: normal inspection Upper leg exam: Present: normal inspection Foot/toe exam: Present: normal inspection Neurovascular/Tendon exam: Present: normal capillary refill. Absent: pulse deficit, motor deficit, sensory deficit - Back Exam Back exam: Present: normal inspection, full ROM. Absent: tenderness, CVA tenderness (R), CVA tenderness (L) - Neurological Exam Neurological exam: Present: alert, oriented X3, other (No focal neurologic findings, no obvious asterixis) - Psychiatric Psychiatric exam: Present: flat affect - Skin Skin exam: Present: warm, dry, intact, other (Diffusely jaundiced). Absent: pallor Course Vital Signs Temperature 98.6 F 09/01/18 10:33 Pulse Rate 116 09/01/18 10:33 Respiratory Rate 20 09/01/18 10:33 Blood Pressure 125/83 09/01/18 10:33 O2 Sat by Pulse Oximetry 98 09/01/18 10:33 Temperature 98.6 F 09/01/18 10:33 Pulse Rate 68 09/01/18 13:20 Respiratory Rate 16 09/01/18 13:20 Blood Pressure 107/74 09/01/18 13:20 O2 Sat by Pulse Oximetry 100 09/01/18 13:20 Oxygen Delivery Oxygen Delivery Room Air Medical Decision Making - [facility] Narrative Medical decision making narrative: The patient had an IV placed on arrival, she was given IV fluids IV pain medication IV nausea medication and IV Pepcid. CBC, principal metabolic profile lipase urinalysis coags ammonia level was ordered. Ammonia level was within except limits, decreased from recent admission. CBC was without acute abnormality, improved hemoglobin of 12.0 up from 8.9, coags within except limits apart from mildly elevated PTT. Renal panel within acceptable limits. Liver enzymes demonstrated slightly increased transaminases, with an increased bilirubin of 22 from 15. Lipase within except limits. Urinalysis within except limits. Spoke with GI Dr. Dye, ONEYDA recommends IV steroids continued IV hydration and admit hospitalist spoke with hospitalist to is agreeable to admit this patient. - Lab Data Result diagrams: 09/01/18 11:28 09/01/18 11:28 Lab Results 09/01/18 09/01/18 09/01/18 Range/Units 11:28 11:28 11:28 WBC 10.2 D (4.3-11.1) K/mcL RBC 3.56 L (3.82-4.97) M/mcL Hgb 12.0 D (11.5-15.4) g/dL Hct 37.3 (35.3-44.9) % MCV 104.8 H (83.0-100.0) fL MCH 33.7 H (28.0-33.3) pg MCHC 32.2 (31.6-35.5) g/dL RDW 13.6 (11.5-14.5) % Plt Count 180 (140-400) K/mcL MPV 11.8 (9.4-12.4) fL Immature Gran % 1.1 (0-4) % Seg Neutrophils % 81.6 % Lymphocytes % 11.5 % Monocytes % 5.5 % Eosinophils % 0.1 % Basophils % 0.2 % Neutrophils # 8.3 (1.6-8.9) K/mcL Lymphocytes # 1.2 (0.6-4.6) K/mcL Monocytes # 0.6 (0.0-1.3) K/mcL Eosinophils # 0.0 (0.0-0.6) K/mcL Basophils # 0.0 (0.0-0.2) K/mcL PT 14.5 H (9.4-12.1) Seconds INR 1.3 APTT 37.7 H (26.0-36.0) Seconds Sodium 134 L (136-145) mEq/L Potassium 3.5 (3.5-5.1) mEq/L Chloride 101 (98-107) mEq/L Carbon Dioxide 24 (23-29) mEq/L BUN 5 L (6-20) mg/dL Creatinine 0.37 L (0.60-1.20) mg/dL Est GFR ( Amer) > 60 (> 60) Est GFR (Non-Af Amer) > 60 (> 60) BUN/Creatinine Ratio 14 (6-26) Glucose 130 H (70-105) mg/dL Calculated Osmolality 277 L (280-300) Calcium 9.0 (8.6-10.3) mg/dL Total Bilirubin 22.8 H (0.3-1.0) mg/dL Direct Bilirubin 12.7 H (0.0-0.2) mg/dL Indirect Bilirubin 10.1 H (0.0-1.2) mg/dL AST 306 H (13-39) Units/L ALT 86 H (7-52) Units/L Alkaline Phosphatase 142 H (34-104) Units/L Ammonia (16-53) mcmol/L Serum Total Protein 7.1 (6.4-8.9) g/dL Albumin 3.4 L (3.5-5.7) g/dL Globulin 3.7 H (2.4-3.5) g/dL Albumin/Globulin Ratio 0.9 L (1.1-2.2) Lipase TNP Urine Color (Yellow) Urine Clarity (Clear) Urine pH (5.0-8.0) pH Units Ur Specific [place] (1.010-1.025) Urine Protein (Neg-Trace) mg/dL Urine Glucose (UA) (Normal) mg/dL Urine Ketones (Negative) mg/dL Urine Blood (Negative) Urine Nitrite (Negative) Urine Bilirubin (Negative) Urine Urobilinogen (Normal) mg/dL Ur Leukocyte Esterase (Negative) Urine Microscopic RBC (0-3) per hpf Urine Microscopic WBC (0-3) per hpf Ur Squamous Epith Cells (None-Few) per lpf Urine Bacteria (None-Few) per hpf Hyaline Casts (None-Few) per lpf Ur Culture Indicated? (NO) Urine Test (Negative) Ethyl Alcohol < 10 (Less than 10) mg/dL 09/01/18 09/01/18 09/01/18 Range/Units 11:28 12:15 12:23 WBC (4.3-11.1) K/mcL RBC (3.82-4.97) M/mcL Hgb (11.5-15.4) g/dL Hct (35.3-44.9) % MCV (83.0-100.0) fL MCH (28.0-33.3) pg MCHC (31.6-35.5) g/dL RDW (11.5-14.5) % Plt Count (140-400) K/mcL MPV (9.4-12.4) fL Immature Gran % (0-4) % Seg Neutrophils % % Lymphocytes % % Monocytes % % Eosinophils % % Basophils % % Neutrophils # (1.6-8.9) K/mcL Lymphocytes # (0.6-4.6) K/mcL Monocytes # (0.0-1.3) K/mcL Eosinophils # (0.0-0.6) K/mcL Basophils # (0.0-0.2) K/mcL PT (9.4-12.1) Seconds INR APTT (26.0-36.0) Seconds Sodium (136-145) mEq/L Potassium (3.5-5.1) mEq/L Chloride (98-107) mEq/L Carbon Dioxide (23-29) mEq/L BUN (6-20) mg/dL Creatinine (0.60-1.20) mg/dL Est GFR ( Amer) (> 60) Est GFR (Non-Af Amer) (> 60) BUN/Creatinine Ratio (6-26) Glucose (70-105) mg/dL Calculated Osmolality (280-300) Calcium (8.6-10.3) mg/dL Total Bilirubin (0.3-1.0) mg/dL Direct Bilirubin (0.0-0.2) mg/dL Indirect Bilirubin (0.0-1.2) mg/dL AST (13-39) Units/L ALT (7-52) Units/L Alkaline Phosphatase (34-104) Units/L Ammonia 49 (16-53) mcmol/L Serum Total Protein (6.4-8.9) g/dL Albumin (3.5-5.7) g/dL Globulin (2.4-3.5) g/dL Albumin/Globulin Ratio (1.1-2.2) Lipase Urine Color [place] A (Yellow) Urine Clarity Cloudy A (Clear) Urine pH 6.0 (5.0-8.0) pH Units Ur Specific [place] 1.025 (1.010-1.025) Urine Protein Negative (Neg-Trace) mg/dL Urine Glucose (UA) Normal (Normal) mg/dL Urine Ketones Trace H (Negative) mg/dL Urine Blood Negative (Negative) Urine Nitrite Negative (Negative) Urine Bilirubin Large H (Negative) Urine Urobilinogen Normal (Normal) mg/dL Ur Leukocyte Esterase Small H (Negative) Urine Microscopic RBC 0-3 (0-3) per hpf Urine Microscopic WBC 0-3 (0-3) per hpf Ur Squamous Epith Cells Moderate H (None-Few) per lpf Urine Bacteria Few (None-Few) per hpf Hyaline Casts Few (None-Few) per lpf Ur Culture Indicated? YES A (NO) Urine Test Negative (Negative) Ethyl Alcohol (Less than 10) mg/dL
[2018-09-01 11:44] LABS: Basophils % 0.2 %; Eosinophils % 0.1 %; Hematocrit 37.3 % (35.3-44.9); Immature Granulocytes % 1.1 % (0-4); Lymphocytes # 1.2 K/mcL (0.6-4.6); Lymphocytes % 11.5 %; Mean Corpuscular HGB Conc 32.2 g/dL (31.6-35.5); Mean Corpuscular Hemoglobin 33.7 pg (28.0-33.3); Mean Corpuscular Volume 104.8 fL (83.0-100.0); Mean Platelet Volume 11.8 fL (9.4-12.4); Monocytes # 0.6 K/mcL (0.0-1.3); Monocytes % 5.5 %; Platelet Count 180 K/mcL (140-400); Red Blood Count 3.56 M/mcL (3.82-4.97); Red Cell Distribution Width 13.6 % (11.5-14.5); Segmented Neutrophils % 81.6 %
[2018-09-01 11:49] LABS: Neutrophils # 8.3 K/mcL (1.6-8.9)
[2018-09-01 11:55] LABS: INR 1.3; Prothrombin Time 14.5 Seconds (9.4-12.1)
[2018-09-01 11:57] LABS: Activated Partial Thrombo Time 37.7 Seconds (26.0-36.0)
[2018-09-01 12:54] LABS: Bilirubin,Urine Large (Negative); Blood,Urine Negative (Negative); Clarity,Urine Cloudy (Clear); Color,Urine Orange (Yellow); Glucose,Urine (UA) Normal (Normal); Ketones,Urine Trace mg/dL (Negative); Leukocyte Esterase,Urine Small (Negative); Nitrite,Urine Negative (Negative); Protein,Urine Negative (Neg-Trace); Specific Gravity,Urine 1.025 (1.010-1.025); Urobilinogen,Urine Normal (Normal)
[2018-09-01 12:57] LABS: RBC,Urine 0-3 per hpf (0-3); Squamous Epithelial Cell,Urine Moderate per lpf (None-Few); WBC,Urine 0-3 per hpf (0-3)
[2018-09-01 13:20] LABS: Hyaline Casts,Urine Few per lpf (None-Few)
[2018-09-01 13:21] LABS: Bacteria,Urine Few per hpf (None-Few)
[2018-09-01 13:30] LABS: Alanine Aminotransferase 86 Units/L (7-52); Albumin 3.4 g/dL (3.5-5.7); Albumin/Globulin Ratio 0.9 (1.1-2.2); Alkaline Phosphatase 142 Units/L (34-104); Aspartate Amino Transferase 306 Units/L (13-39); BUN/Creatinine Ratio 14 (6-26); Bilirubin,Direct 12.7 mg/dL (0.0-0.2); Bilirubin,Indirect 10.1 mg/dL (0.0-1.2); Bilirubin,Total 22.8 mg/dL (0.3-1.0); Blood Urea Nitrogen 5 mg/dL (6-20); Carbon Dioxide 24 mEq/L (23-29); Chloride 101 mEq/L (98-107); Ethanol < 10 mg/dL (Less than 10); Globulin 3.7 g/dL (2.4-3.5); Glucose 130 mg/dL (70-105); Osmolality,Calculated 277 (280-300); Potassium 3.5 mEq/L (3.5-5.1); Sodium 134 mEq/L (136-145); Total Protein 7.1 g/dL (6.4-8.9); eGFR For Non-African Americans > 60 (> 60)
[2018-09-01] MEDS ORDERED: MethylPREDNISolone 40 MG/ML VIAL IVP ONE (14:21)
--- NOTE | 2018-09-01 17:51 | Internal Med History&Physical ---
Date of Encounter: 09/01/18 Time of Encounter: 11:00 Internal Medicine - H&P: HPI Chief complaint: Abdominal pain/nausea/vomiting Admitted From: Home Plans for Post Hospital Care: Home History of present illness: Patient is a 34-year-old female with past medical history significant for alcoholic cirrhosis, gastric sleeve, C. difficile, ESBL and hypertension who was just recently discharged on 08/29/18 for management of elevated transaminases secondary to acute on chronic hepatic failure who returns to the ER due to w orsening abdominal pain with chills and diaphoresis. Patient reports of recurrent abdominal pain with nausea/vomiting and addition to abdominal distention. Patient came back to the ER for reevaluation. In the ER patient was found to have elevated transaminases with a total bilirubin of 22.8, direct bilirubin of 12.2, indirect bilirubin of 10.1, AST of 306, ALT of 86 and alk phosphatase of 142. She also appears very jaundice on exam and with scleral icterus. GI was consulted from the ER with recommendations to initiate IV Solu-Medrol and supportive care. Past Med Surg Social Fam HX - Past Medical History Medical history: hepatitis, hypertension, kidney stones, liver disease, seizures Additional medical history: tremors since born,. hypokalemia, gastric sleeve, cdiff, ESBL Psychiatric history: anxiety - Past Surgical History Surgical History: cholecystectomy Additional surgical history: gastric sleeve 2014. D&C x 2. UTERINE ABLAITION - Social History Smoking Status: Never smoker Smokeless Tobacco Status: No Alcohol use: none, recent Drug use: none - Family History Mother Living Status: Still Living Hx Family Cardiac Disorders: Yes (HTN, [place]) Hx Family GI Disorders: No Father Hx Family GI Disorders: No Internal Medicine - H&P: Meds Metoprolol [Lopressor] 12.5 mg PO BID 08/06/18 [History] Potassium Chloride [K-Tab ER] 10 meq PO BID 08/25/18 [History] Montelukast [Singulair] 10 mg PO DAILY PRN 08/26/18 [History] Lactulose 20 gm PO BID #60 udc 08/29/18 [Rx] MethylPREDNISolone [Medrol] 32 mg PO DAILY 30 Days #30 tablet 08/29/18 [Rx] Multivitamin Liquid [Cerovite Liquid] 15 ml PO DAILY #120 udc 08/29/18 [Rx] Sucralfate [Carafate] 1 gm PO QIDAC #120 tablet 08/29/18 [Rx] Thiamine (B-1) [Vitamin B-1] 100 mg PO DAILY #30 tablet 08/29/18 [Rx] Allergy/AdvReac Type Severity Reaction Status Date / Time hydromorphone [From Dilaudid] AdvReac Hallucinati Verified 08/26/18 10:40 ng All Systems PM: A 10-system review of systems was performed and is negative for pertinent findings except as documented above in the HPI. - Constitutional Vitals: Temp Pulse Resp BP Pulse Ox 98.2 F 95 15 115/74 96 09/01/18 16:47 09/01/18 16:47 09/01/18 16:47 09/01/18 16:47 09/01/18 16:47 General appearance: Present: A&O X 3, no acute distress Exam: Above - Head Head exam: Present: normocephalic - Eye Eye exam: Present: scleral icterus - ENT ENT exam: Present: mucous membranes moist - Respiratory Respiratory exam: Present: CTAB. Absent: accessory muscle use, rales, rhonchi, wheezes - Cardiovascular Cardiovascular exam: Present: RRR, +S1, +S2. Absent: diastolic murmur, gallop, rubs, systolic murmur - GI/Abdominal GI/Abdominal exam: Present: guarding, soft, tenderness, no peritoneal signs. Absent: distended - Extremities Exam Extremities exam: Absent: pedal edema - Neurological Exam Neurological exam: Present: oriented X3 - Psychiatric Psychiatric exam: Present: normal mood - Skin Skin exam: Absent: normal color Additional comments: Jaundiced Internal Med - H&P Results - Labs CBC & Chem 7: 09/01/18 11:28 09/01/18 11:28 Labs: Short CBC 09/01/18 Range/Units 11:28 WBC 10.2 D (4.3-11.1) K/mcL Hgb 12.0 D (11.5-15.4) g/dL Hct 37.3 (35.3-44.9) % Plt Count 180 (140-400) K/mcL Neutrophils # 8.3 (1.6-8.9) K/mcL BMP 09/01/18 11:28 Sodium 134 L Potassium 3.5 Chloride 101 Carbon Dioxide 24 BUN 5 L Creatinine 0.37 L Glucose 130 H Calcium 9.0 Liver Function 09/01/18 Range/Units 11:28 Total Bilirubin 22.8 H (0.3-1.0) mg/dL Direct Bilirubin 12.7 H (0.0-0.2) mg/dL AST 306 H (13-39) Units/L ALT 86 H (7-52) Units/L Alkaline Phosphatase 142 H (34-104) Units/L Albumin 3.4 L (3.5-5.7) g/dL Urine 09/01/18 Range/Units 12:15 Urine Color [place] A (Yellow) Urine Clarity Cloudy A (Clear) Urine pH 6.0 (5.0-8.0) pH Units Ur Specific [place] 1.025 (1.010-1.025) Urine Protein Negative (Neg-Trace) mg/dL Urine Glucose (UA) Normal (Normal) mg/dL - Assessment and Plan (1) Acute alcoholic hepatitis Current Visit: No Status: Acute Assessment and plan: Patient presents with recurrent abdominal pain, nausea/vomiting with jaundice and scleral icterus on exam Patient found to have elevated transaminases in addition to hyperbilirubinemia; management as below GI consulted with recommendations to initiate IV Solu-Medrol and supportive care (2) Hyperbilirubinemia Current Visit: Yes Status: Acute Assessment and plan: In the ER patient was found to have elevated total bilirubin of 22.8, direct bilirubin of 12.2 and indirect bilirubin Recommendations by GI not to initiate ursodiol at this point will monitor (3) Transaminitis Current Visit: Yes Status: Acute Assessment and plan: In the ER patient was found to have elevated transaminases with a total bilirubin of 22.8, direct bilirubin of 12.2, indirect bilirubin of 10.1, AST of 306, ALT of 86 and alk phosphatase of 142. Patient started on IV Solu-Medrol per GI recommendations as above (4) Alcohol abuse Current Visit: No Status: Chronic Assessment and plan: She reports of being abstinent for approximate 4 months (5) HTN (hypertension) Current Visit: No Status: Chronic Assessment and plan: Continue home medications Qualifiers: Hypertension type: essential hypertension Qualified Code(s): I10 - Essential (primary) hypertension (6) DVT prophylaxis Current Visit: No Status: Resolved Assessment and plan: SCDs - Time Spent With Patient Total time spent is greater than 50% in coordination of care (as documented) at patient's floor/unit and/or counseling patient:
[2018-09-01] MEDS ORDERED: Naloxone 0.4 MG/ML INJ IVP PRN (18:06)
[2018-09-01] MEDS: 0.9 % Sodium Chloride 1,000 ML IVC SCH (19:57)
[2018-09-01] MEDS: Ketorolac 30 MG/ML VIAL IVP PRN (19:57)
[2018-09-02] MEDS: Ondansetron 4 MG/2 ML VIAL IVP PRN ×2 (00:04→11:15)
[2018-09-02] MEDS: Ketorolac 30 MG/ML VIAL IVP PRN ×3 (02:01→17:41)
[2018-09-02] MEDS ORDERED: Melatonin 3 MG TABLET PO ONE (02:28)
[2018-09-02] MEDS: 0.9 % Sodium Chloride 1,000 ML IVC SCH (05:22)
[2018-09-02] MEDS: methylPREDNISolone 125 MG/2 ML VIAL IVP SCH ×2 (05:22→17:43)
--- NOTE | 2018-09-02 06:39 | Electrocardiograph Report ---
[facility] Data Test Date: 2018-09-01 Pat Name: Maria Luisa Garvey Department: 104 Room: 3A47 Gender: F [employer] Supervisor: Heladio : 1985 Requested By: Nacho Corona Order Number: [id number] Reading MD: Yobany Ken Measurements Intervals [place] Rate: 87 P: 40 IA: 140 QRS: 50 QRSD: 87 T: 9 QT: 376 QTc: 420 Interpretive Statements SINUS RHYTHM NONSPECIFIC T-WAVE ABNORMALITY Electronically Signed On 09-02-2018 6:38:35 EDT by Yobany Ken
--- NOTE | 2018-09-02 10:07 | Internal Med Progress Note ---
Hospitalist Progress Note - Encounter Date of Encounter: 09/02/18 Time of Encounter: 11:00 - Subjective Interval History: Patient is a 34-year-old female with past medical history significant for alcoholic cirrhosis, gastric sleeve, C. difficile, ESBL and hypertension who was just recently discharged on 08/29/18 for management of elevated transaminases se condary to acute on chronic hepatic failure who returns to the ER due to worsening abdominal pain secondary to recurrent acute hepatic failure. GI following with recommendations for paracentesis by IR - Exam Vitals: Temp Pulse Resp BP Pulse Ox 97.3 F L 57 15 120/75 95 09/02/18 07:08 09/02/18 07:08 09/02/18 07:08 09/02/18 07:08 09/02/18 07:08 Exam: Above - Assessment and Plan (1) Acute alcoholic hepatitis Current Visit: No Status: Acute Assessment and Plan: Patient presents with recurrent abdominal pain, nausea/vomiting with jaundice and scleral icterus on exam Patient found to have elevated transaminases in addition to hyperbilirubinemia; management as below CT of the abdomen/pelvis on 08/25/18 showed hepatomegaly with severe hepatic steatosis with borderline splenomegaly GI consulted with recommendations to initiate IV Solu-Medrol and supportive care Further recommendations for paracentesis with IR Appreciate any further recommendations (2) Hyperbilirubinemia Current Visit: Yes Status: Acute Assessment and Plan: In the ER patient was found to have elevated total bilirubin of 22.8, direct bilirubin of 12.2 and indirect bilirubin Recommendations by GI not to initiate ursodiol at this point ut to continue to monitor levels (3) Transaminitis Current Visit: Yes Status: Acute Assessment and Plan: On admission patient was found to have elevated transaminases with a total bilirubin of 22.8, direct bilirubin of 12.2, indirect bilirubin of 10.1, AST of 306, ALT of 86 and alk phosphatase of 142. Patient started on IV Solu-Medrol per GI recommendations as above (4) Alcohol abuse Current Visit: No Status: Chronic Assessment and Plan: She reports of being abstinent for approximate 4 months (5) HTN (hypertension) Current Visit: No Status: Chronic Assessment and Plan: Continue home medications DVT Prophylaxis: SCDs - Time Spent with Patient Total time spent is greater than 50% in coordination of care (as documented) at patient's floor/unit and/or counseling patient: Internal Medicine: Result - Labs CBC & Chem 7: 09/02/18 11:43 09/02/18 11:43 Labs: Short CBC 09/01/18 Range/Units 11:28 WBC 10.2 D (4.3-11.1) K/mcL Hgb 12.0 D (11.5-15.4) g/dL Hct 37.3 (35.3-44.9) % Plt Count 180 (140-400) K/mcL Neutrophils # 8.3 (1.6-8.9) K/mcL BMP 09/01/18 11:28 Sodium 134 L Potassium 3.5 Chloride 101 Carbon Dioxide 24 BUN 5 L Creatinine 0.37 L Glucose 130 H Calcium 9.0 Liver Function 09/01/18 Range/Units 11:28 Total Bilirubin 22.8 H (0.3-1.0) mg/dL Direct Bilirubin 12.7 H (0.0-0.2) mg/dL AST 306 H (13-39) Units/L ALT 86 H (7-52) Units/L Alkaline Phosphatase 142 H (34-104) Units/L Albumin 3.4 L (3.5-5.7) g/dL Urine 09/01/18 Range/Units 12:15 Urine Color [place] A (Yellow) Urine Clarity Cloudy A (Clear) Urine pH 6.0 (5.0-8.0) pH Units Ur Specific [place] 1.025 (1.010-1.025) Urine Protein Negative (Neg-Trace) mg/dL Urine Glucose (UA) Normal (Normal) mg/dL - ABG Interpretation ABG results: PT/INR, D-dimer PT 14.5 Seconds (9.4-12.1) H 09/01/18 11:28 Consult Discharge Plan - Plan Referrals: Vero Ryan, [employer]ER [Primary Care Provider] - (5) HTN (hypertension) Qualifiers: Hypertension type: essential hypertension Qualified Code(s): I10 - Essential (primary) hypertension
[2018-09-02] MEDS: Sucralfate 1 GM TABLET PO SCH ×3 (11:07→22:25)
[2018-09-02] MEDS: Thiamine (B-1) 100 MG TABLET PO SCH (11:07)
[2018-09-02] MEDS: Loratadine 10 MG TABLET PO SCH (11:07)
[2018-09-02 12:13] LABS: Basophils % 0.2 %; Hematocrit 28.9 % (35.3-44.9); Immature Granulocytes % 1.5 % (0-4); Lymphocytes # 0.7 K/mcL (0.6-4.6); Lymphocytes % 11.4 %; Mean Corpuscular HGB Conc 32.5 g/dL (31.6-35.5); Mean Corpuscular Hemoglobin 33.1 pg (28.0-33.3); Mean Corpuscular Volume 101.8 fL (83.0-100.0); Mean Platelet Volume 11.4 fL (9.4-12.4); Monocytes # 0.2 K/mcL (0.0-1.3); Monocytes % 2.9 %; Neutrophils # 4.9 K/mcL (1.6-8.9); Platelet Count 146 K/mcL (140-400); Red Blood Count 2.84 M/mcL (3.82-4.97); Red Cell Distribution Width 13.7 % (11.5-14.5)
--- NOTE | 2018-09-02 12:27 | Gastroenterology Consult Note ---
<Anum Mcpherson - Last Filed: 09/02/18 12:21> Date of Encounter: 09/02/18 Time of Encounter: 11:00 - Assessment and plan (1) Alcoholic hepatitis Current Visit: No Status: Acute Assessment and plan: Pt with alcoholic hepatitis, bilirubin continued to increase despite being on po steroids therefore she was admitted to be started on IV solumedrol. DF is 33.8, was 44 last admission. She has complains of abdominal pain and swelling. Will obtain us doppler of the liver to rule out cristin and hepatic vein thrombosis, if significant ascites will check paracentesis for SBP. Her long-term prognosis is poor. Qualifiers: Ascites presence: without ascites Qualified Code(s): K70.10 - Alcoholic hepatitis without ascites (2) Abdominal pain Current Visit: No Status: Acute Assessment and plan: pt has a history of c-diff however she denies any diarrhea at this time Qualifiers: Abdominal location: unspecified location Qualified Code(s): R10.9 - Unspecified abdominal pain - Time Spent With Patient Total time spent is greater than 50% in coordination of care (as documented) at patient's floor/unit and/or counseling patient: GI History of Present Illness - Data of Consult Patient: known to practice within the last 3 years Consult date: 09/02/18 Requesting Physician: Viral Huang - Consult Narrative Reason for consult: cirrhosis, liver failure History of present illness: Ms. Garvey is a 33 year old female with PMHx of chronic alcohol abuse (sober approximately 5 weeks), HTN, kidney stones, and seizures. She has been hospitalized several times in the past month with jaundice, encephalopathy and acute alcoholic hepatitis. She was recently discharged (08/29/18) from the hospital on 32 mg methylprednisolone. At discharge her bilirubin had decreased to 15. She presented back to the Er yesterday with complaints of abdominal pain, abdominal swelling, chills, diaphoresis, nausea and vomiting. T bilirubin was 23 on admission. She denies any alcohol consumption in the past 5 weeks. She states she had been taking the steroids as directed and did not miss any doses. Meld NA: 24 DF: 33.8 Procedures: None NSAIDs: None Anticoagulation: None Past Med Surg Social Fam HX - Past Medical History Medical history: hepatitis, hypertension, kidney stones, liver disease, seizures Additional medical history: tremors since born,. hypokalemia, gastric sleeve, cdiff, ESBL Psychiatric history: anxiety - Past Surgical History Surgical History: cholecystectomy Additional surgical history: gastric sleeve 2015. D&C x 2. UTERINE ABLAITION - Social History Smoking Status: Never smoker Smokeless Tobacco Status: No Alcohol use: none, recent Drug use: none - Family History Mother Living Status: Still Living Hx Family Cardiac Disorders: Yes (HTN, [place]) Hx Family GI Disorders: No Father Hx Family GI Disorders: No Review of Systems: GI: as per [place] [employer] GENERAL: denies fever, has some chills EYES: yellow discoloration ENT: denies pain with swallowing or difficulty swallowing CARDIO: denies chest pain, palpitations RESP: No Shortness of breath with exertion : dark yellow-orange urine NEURO: chronic weakness, pt states she has difficulty walking and falls alot HEME: Denies any bruising MS: denies joint pain, joint swelling or back pain. DERM: denies rash or itching PSYCH: history of anxiety and depression, pt states she has severe panic attacks - Constitutional Vitals: Temp Pulse Resp BP Pulse Ox 98.1 F 69 14 125/87 95 09/02/18 10:38 09/02/18 10:38 09/02/18 10:38 09/02/18 10:38 09/02/18 10:38 Exam: CONSTITUTIONAL:alert, no acute distress.HEAD:normocephalic.EYES:jaundice.NECK:no obvious swelling.HEART:regular rate and rhythm, no murmurs.LUNGS:bilateral fair air entry, expiratory wheezes noted.ABDOMEN:non distended, soft, generalized tenderness, no significant ascites noted.RECTAL EXAM:Deferred.EXTREMITIES:no clubbing, cyanosis or edema.SKIN:jaundice, multiple tattoos noted. NEUROLOGIC:no obvious focal defect. Results - Labs CBC & Chem 7: 09/01/18 11:28 09/01/18 11:28 Labs: Last Result Calcium 9.0 mg/dL (8.6-10.3) 09/01/18 11:28 Entire Visit Hgb 12.0 g/dL (11.5-15.4) D 09/01/18 11:28 Hct 37.3 % (35.3-44.9) 09/01/18 11:28 PT 14.5 Seconds (9.4-12.1) H 09/01/18 11:28 Total Bilirubin 22.8 mg/dL (0.3-1.0) H 09/01/18 11:28 AST 306 Units/L (13-39) H 09/01/18 11:28 ALT 86 Units/L (7-52) H 09/01/18 11:28 Ammonia 49 mcmol/L (16-53) 09/01/18 11:28 Lipase TNP 09/01/18 11:28 - ABG ABG results: PT/INR, D-dimer PT 14.5 Seconds (9.4-12.1) H 09/01/18 11:28 Consult Discharge Plan - Plan Referrals: Vero Ryan, [employer] ENGINEER [Primary Care Provider] - <Scott Dye - Last Filed: 09/02/18 22:17> Date of Encounter: 09/02/18 Time of Encounter: 16:00 - Time Spent With Patient Total time spent is greater than 50% in coordination of care (as documented) at patient's floor/unit and/or counseling patient: GI History of Present Illness - Data of Consult Requesting Physician: Viral Huang - Consult Narrative History of present illness: Ms. Garvey is a 33 year old female - Constitutional Vitals: Temp Pulse Resp BP Pulse Ox 99.4 F 60 16 131/83 100 09/02/18 19:22 09/02/18 19:22 09/02/18 19:22 09/02/18 19:22 09/02/18 19:22 Results - Labs CBC & Chem 7: 09/02/18 11:43 09/02/18 11:43 Labs: Last Result Calcium 8.1 mg/dL (8.6-10.3) L 09/02/18 11:43 Entire Visit Hgb 9.4 g/dL (11.5-15.4) L D 09/02/18 11:43 Hct 28.9 % (35.3-44.9) L 09/02/18 11:43 PT 14.5 Seconds (9.4-12.1) H 09/01/18 11:28 Total Bilirubin 15.8 mg/dL (0.3-1.0) H 09/02/18 11:43 AST 207 Units/L (13-39) H 09/02/18 11:43 ALT 63 Units/L (7-52) H 09/02/18 11:43 Ammonia 49 mcmol/L (16-53) 09/01/18 11:28 Lipase TNP 09/01/18 11:28 - ABG ABG results: PT/INR, D-dimer PT 14.5 Seconds (9.4-12.1) H 09/01/18 11:28 - Impressions Impressions Abdomen/Pelvis Ultrasound 09/02/18 20:00 IMPRESSION: Patent hepatic vasculature. D/ / 09/02/2018 21:39:29 Darinel Hackett MD / [facility] Interpreting Provider: Darinel Hackett MD - Attending Attestation I have personally performed a face to face evaluation on this patient. I have reviewed and agree with the care plan. History and Exam by me shows: Pt seen. Complaing of lower abd pain. O/E; Pt jaundice. A; Pt with ALD with high DF. Rec: IV steroids, IV fluids
[2018-09-02 12:38] LABS: Alanine Aminotransferase 63 Units/L (7-52); Albumin 2.8 g/dL (3.5-5.7); Albumin/Globulin Ratio 1.1 (1.1-2.2); Alkaline Phosphatase 105 Units/L (34-104); Aspartate Amino Transferase 207 Units/L (13-39); BUN/Creatinine Ratio 21 (6-26); Bilirubin,Total 15.8 mg/dL (0.3-1.0); Blood Urea Nitrogen 7 mg/dL (6-20); Calcium 8.1 mg/dL (8.6-10.3); Carbon Dioxide 22 mEq/L (23-29); Chloride 104 mEq/L (98-107); Globulin 2.6 g/dL (2.4-3.5); Glucose 128 mg/dL (70-105); Osmolality,Calculated 280 (280-300); Potassium 3.9 mEq/L (3.5-5.1); Sodium 135 mEq/L (136-145); Total Protein 5.4 g/dL (6.4-8.9); eGFR For Non-African Americans > 60 (> 60)
[2018-09-02 12:52] LABS: Hemoglobin 9.4 g/dL (11.5-15.4)
[2018-09-02] MEDS: Lactulose Oral Soln 20 GM/30 ML UDC PO SCH ×3 (13:53→21:02)
[2018-09-02] MEDS ORDERED: POTASSIUM CHLORIDE 20 MEQ PO SCH (21:00)
[2018-09-03] MEDS: Ketorolac 30 MG/ML VIAL IVP PRN ×2 (04:37→11:09)
[2018-09-03] MEDS: methylPREDNISolone 125 MG/2 ML VIAL IVP SCH ×2 (05:21→17:27)
[2018-09-03] MEDS: Sucralfate 1 GM TABLET PO SCH ×4 (09:29→21:10)
[2018-09-03] MEDS: Loratadine 10 MG TABLET PO SCH (09:29)
[2018-09-03] MEDS: Lactulose Oral Soln 20 GM/30 ML UDC PO SCH ×2 (09:29→21:22)
[2018-09-03] MEDS: Thiamine (B-1) 100 MG TABLET PO SCH (09:29)
[2018-09-03] MEDS ORDERED: Ondansetron ODT 4 MG TAB.RAPDIS SL PRN (09:45)
[2018-09-03] MEDS: traMADol 50 MG TABLET PO PRN ×2 (13:22→21:17)
--- NOTE | 2018-09-03 18:26 | Internal Med Progress Note ---
Hospitalist Progress Note - Encounter Date of Encounter: 09/03/18 Time of Encounter: 18:24 - Subjective Interval History: Pt reports IV site discomfort. She is requesting powerglide insertion. She denies, fever, chills, N/V. She states she has loose stoos as she is on lactulose. - Exam Vitals: Temp Pulse Resp BP Pulse Ox 98.7 F 78 16 111/66 90 09/03/18 14:14 09/03/18 14:14 09/03/18 14:14 09/03/18 14:14 09/03/18 14:14 Exam: General appearance: Present: A&O X 3, no acute distress Exam: - Head Head exam: Present: normocephalic - Eye Eye exam: Present: scleral icterus - ENT ENT exam: Present: mucous membranes moist - Respiratory Respiratory exam: Present: CTAB. Absent: accessory muscle use, rales, rhonchi, wheezes - Cardiovascular Cardiovascular exam: Present: RRR, +S1, +S2. Absent: diastolic murmur, gallop, rubs, systolic murmur - GI/Abdominal GI/Abdominal exam: Present: guarding, soft, tenderness, no peritoneal signs. Absent: distended - Extremities Exam Extremities exam: Absent: pedal edema - Neurological Exam Neurological exam: Present: oriented X3 - Psychiatric Psychiatric exam: Present: normal mood - Skin Skin exam: Absent: normal color Additional comments: Jaundiced - Assessment and Plan (1) Alcohol abuse Current Visit: No Status: Chronic Assessment and Plan: She reported of being abstinent for approximate 4 months (2) HTN (hypertension) Current Visit: No Status: Chronic Assessment and Plan: Continue home medications (3) Transaminitis Current Visit: Yes Status: Acute Assessment and Plan: On admission patient was found to have elevated transaminases with a total bilirubin of 22.8, direct bilirubin of 12.2, indirect bilirubin of 10.1, AST of 306, ALT of 86 and alk phosphatase of 142. Patient started on IV Solu-Medrol per GI recommendations as above (4) Hyperbilirubinemia Current Visit: Yes Status: Acute Assessment and Plan: In the ER patient was found to have elevated total bilirubin of 22.8, direct bilirubin of 12.2 and indirect bilirubin Recommendations by GI not to initiate ursodiol at this point and to continue to monitor levels (5) Acute alcoholic hepatitis Current Visit: No Status: Acute Assessment and Plan: Patient presents with recurrent abdominal pain, nausea/vomiting with jaundice and scleral icterus on exam Patient found to have elevated transaminases in addition to hyperbilirubinemia; management as below CT of the abdomen/pelvis on 08/25/18 showed hepatomegaly with severe hepatic st eatosis with borderline splenomegaly GI consulted with recommendations to initiate IV Solu-Medrol and supportive care Appreciate any further recommendations DVT Prophylaxis: SCDs - Time Spent with Patient Total time spent is greater than 50% in coordination of care (as documented) at patient's floor/unit and/or counseling patient: less than 15 minutes Plan of Care Discussed with: patient Internal Medicine: Result - Labs CBC & Chem 7: 09/02/18 11:43 09/02/18 11:43 - ABG Interpretation ABG results: PT/INR, D-dimer PT 14.5 Seconds (9.4-12.1) H 09/01/18 11:28 - Impressions Impressions Abdomen/Pelvis Ultrasound 09/02/18 20:00 IMPRESSION: Patent hepatic vasculature. D/ / 09/02/2018 21:39:29 Darinel Hackett MD / [email or web address] Interpreting Provider: Darinel Hackett MD Consult Discharge Plan - Plan Referrals: Vero Ryan, [employer]EN[employer] INSPECTOR [Primary Care Provider] - (2) HTN (hypertension) Qualifiers: Hypertension type: essential hypertension Qualified Code(s): I10 - Essential (primary) hypertension
[2018-09-04] MEDS ORDERED: hydrOXYzine pamoate 25 MG CAPSULE PO PRN (00:54)
[2018-09-04] MEDS: traMADol 50 MG TABLET PO PRN (05:15)
[2018-09-04] MEDS: methylPREDNISolone 125 MG/2 ML VIAL IVP SCH (05:15)
[2018-09-04 08:43] LABS: Basophils % 0.1 %; Eosinophils % 0.1 %; Hematocrit 30.1 % (35.3-44.9); Hemoglobin 9.8 g/dL (11.5-15.4); Immature Granulocytes % 1.4 % (0-4); Lymphocytes # 0.5 K/mcL (0.6-4.6); Lymphocytes % 7.3 %; Mean Corpuscular HGB Conc 32.6 g/dL (31.6-35.5); Mean Corpuscular Hemoglobin 33.4 pg (28.0-33.3); Mean Corpuscular Volume 102.7 fL (83.0-100.0); Mean Platelet Volume 11.7 fL (9.4-12.4); Monocytes # 0.4 K/mcL (0.0-1.3); Monocytes % 4.9 %; Neutrophils # 6.4 K/mcL (1.6-8.9); Platelet Count 149 K/mcL (140-400); Red Blood Count 2.93 M/mcL (3.82-4.97); Segmented Neutrophils % 86.2 %
[2018-09-04] MEDS: Sucralfate 1 GM TABLET PO SCH ×2 (09:03→12:21)
[2018-09-04] MEDS: Lactulose Oral Soln 20 GM/30 ML UDC PO SCH (09:03)
[2018-09-04] MEDS: Loratadine 10 MG TABLET PO SCH (09:03)
[2018-09-04] MEDS: Thiamine (B-1) 100 MG TABLET PO SCH (09:03)
[2018-09-04 09:06] LABS: Alanine Aminotransferase 74 Units/L (7-52); Albumin 2.9 g/dL (3.5-5.7); Albumin/Globulin Ratio 1.1 (1.1-2.2); Alkaline Phosphatase 136 Units/L (34-104); Aspartate Amino Transferase 184 Units/L (13-39); Bilirubin,Total 12.5 mg/dL (0.3-1.0); Blood Urea Nitrogen 10 mg/dL (6-20); Calcium 8.4 mg/dL (8.6-10.3); Carbon Dioxide 25 mEq/L (23-29); Chloride 105 mEq/L (98-107); Globulin 2.6 g/dL (2.4-3.5); Glucose 134 mg/dL (70-105); Osmolality,Calculated 289 (280-300); Potassium 3.5 mEq/L (3.5-5.1); Sodium 139 mEq/L (136-145); Total Protein 5.5 g/dL (6.4-8.9)
[2018-09-04 10:25] VITALS: BP 120/79
[2018-09-04 11:16] LABS: BUN/Creatinine Ratio 27 (6-26); eGFR For Non-African Americans > 60 (> 60)
--- NOTE | 2018-09-04 12:26 | Discharge Summary ---
- NOTES TO OUTPATIENT PROVIDER Notes to Outpatient Provider: PCP in [address] Dye in 7 days Orders not resulted at time of discharge: Pending orders 09/02/18 08:40 IR paracentesis ultrasound [IR] Stat 09/02/18 08:41 Albumin,Body Fluid Stat Cell Count w Diff, Body Fluid [BF] Stat Total Protein,Peritoneal Fluid [BF] Stat Date of Encounter: 09/04/18 Time of Encounter: 12:22 - Discharge Diagnosis (1) Acute alcoholic hepatitis Priority: Primary Status: Acute Assessment and Plan: Patient presents with recurrent abdominal pain, nausea/vomiting with jaundice and scleral icterus on exam Patient found to have elevated transaminases in addition to hyperbilirubinemia; management as below CT of the abdomen/pelvis on 08/25/18 showed hepatomegaly with severe hepatic steatosis with borderline splenomegaly GI consulted with recommendations to initiate IV Solu-Medrol and supportive care. Levels improved and Dr. Dye rec 2 weeks of medrol and out pt follow up in one 1 week. Overall, prognosis poor Follow up out pt for further recommendations. (2) Alcohol abuse Priority: Primary Status: Chronic Assessment and Plan: She reported of being abstinent for approximate 4 months. Cessation strongly advised. (3) HTN (hypertension) Priority: Secondary Status: Chronic Assessment and Plan: Continue home medications Qualifiers: Hypertension type: essential hypertension Qualified Code(s): I10 - Essential (primary) hypertension (4) Transaminitis Priority: Secondary Status: Acute Assessment and Plan: On admission patient was found to have elevated transaminases with a total bilirubin of 22.8, direct bilirubin of 12.2, indirect bilirubin of 10.1, AST of 306, ALT of 86 and alk phosphatase of 142. Patient started on IV Solu-Medrol per GI recommendations as above. Liver enzymes levels showing improvement. Discussed with Dr. Dye and recommending Medrol 32 mg PO daily for 2 weeks. She is to follow up with him out pt for further medication adjustments. Overall, prognosis poor. (5) Hyperbilirubinemia Priority: Secondary Status: Acute Assessment and Plan: In the ER patient was found to have elevated total bilirubin of 22.8, direct bilirubin of 12.2 and indirect bilirubin. Recommendations by GI not to initiate ursodiol at this point and to continue to monitor levels out pt. Tbili 12.5 at discharge down from 22.8. (6) Medical non-compliance Priority: Secondary Status: Acute Assessment and Plan: Concern that pt may not be compliant with home medication and medical follow up. Strongly advised on medical compliance. Hospital course: History of present illness: Dr. Huang Patient is a 34-year-old female with past medical history significant for alcoholic cirrhosis, gastric sleeve, C. difficile, ESBL and hypertension who was just recently discharged on 08/29/18 for management of elevated transaminases secondary to acute on chronic hepatic failure who returns to the ER due to worsening abdominal pain with chills and diaphoresis. Patient reports of recurrent abdominal pain with nausea/vomiting and addition to abdominal distention. Patient came back to the ER for reevaluation. In the ER patient was found to have elevated transaminases with a total bilirubin of 22.8, direct bilirubin of 12.2, indirect bilirubin of 10.1, AST of 306, ALT of 86 and alk phosphatase of 142. She also appears very jaundice on exam and with scleral icterus. GI was consulted from the ER with recommendations to initiate IV Solu-Medrol and supportive care. Discharge discussed with: patient - Time Spent with Patient Total time spent providing and/or coordinating discharge services: Time spent: Greater than 30 minutes - Discharge Medications Prescriptions: No Action Metoprolol [Lopressor] 12.5 mg PO BID Montelukast [Singulair] 10 mg PO DAILY MethylPREDNISolone [Medrol] 32 mg PO DAILY 30 Days #30 tablet Multivitamin Liquid [Cerovite Liquid] 15 ml PO DAILY #120 udc Sucralfate [Carafate] 1 gm PO QIDAC #120 tablet Thiamine (B-1) [Vitamin B-1] 100 mg PO DAILY #30 tablet Cetirizine HCl [24Hour Allergy] 10 mg PO DAILY Potassium Chloride [Klor-Con] 20 meq PO BID Albuterol Sulfate [Ventolin Hfa] 2 puff IH Q6H PRN PRN Reason: Shortness Of Breath Fluticasone Propionate Nasal [Flonase] 1 spray NS DAILY PRN PRN Reason: Allergy Symptoms Home Medications: Metoprolol [Lopressor] 12.5 mg PO BID 08/06/18 [History] Montelukast [Singulair] 10 mg PO DAILY 08/26/18 [History] Multivitamin Liquid [Cerovite Liquid] 15 ml PO DAILY #120 udc 08/29/18 [Rx] Sucralfate [Carafate] 1 gm PO QIDAC #120 tablet 08/29/18 [Rx] Thiamine (B-1) [Vitamin B-1] 100 mg PO DAILY #30 tablet 08/29/18 [Rx] Albuterol Sulfate [Ventolin Hfa] 2 puff IH Q6H PRN 09/01/18 [History] Cetirizine HCl [24Hour Allergy] 10 mg PO DAILY 09/01/18 [History] Fluticasone Propionate Nasal [Flonase] 1 spray NS DAILY PRN 09/01/18 [History] Potassium Chloride [Klor-Con] 20 meq PO BID 09/01/18 [History] MethylPREDNISolone [Medrol] 32 mg PO DAILY 30 Days #30 tablet 09/04/18 [Rx] Allergies/Adverse Reactions: Allergy/AdvReac Type Severity Reaction Status Date / Time hydromorphone [From Dilaudid] AdvReac Hallucinati Verified 09/01/18 23:24 ng Date of admission: 09/01/18 18:18 Primary care physician: Vero Ryan CNP Consults: 09/01/18 18:11 Consult to Gastroenterology [CONS] Routine Consulting Provider: Gastroenterology [facility] Reason for Consult: Acute hepatic failure Call Completed: Yes 09/02/18 02:14 Consult to Ccu Nurse [CONS] Routine Reason for SW Consult: living will and financial concerns Discharging clinician: Kelsea Alcala Anticipated date of discharge: 09/04/18 - Constitutional Vitals: Temp Pulse Resp BP Pulse Ox 98.1 F 50 16 120/79 96 09/04/18 10:22 09/04/18 10:22 09/04/18 10:22 09/04/18 10:22 09/04/18 10:22 General appearance: Present: A&O X 3, no acute distress Exam: Exam: General appearance: Present: A&O X 3, no acute distress Exam: Head exam: Present: normocephalic Eye exam: Present: scleral icterus ENT exam: Present: mucous membranes moist Respiratory exam: Present: CTAB. Absent: accessory muscle use, rales, rhonchi, wheezes Cardiovascular exam: Present: RRR, +S1, +S2. Absent: diastolic murmur, gallop, rubs, systolic murmur GI/Abdominal exam: Present: guarding, soft, tenderness, no peritoneal signs. Absent: distended Extremities exam: Absent: pedal edema Neurological exam: Present: oriented X3 Psychiatric exam: Present: normal mood Skin exam: Present: Jaundiced Absent: normal color - Patient Status Disposition: Home, Self-Care Condition: Fair Overall status at discharge: patient is progressing back to baseline - Discharge Instructions Follow Up With: Vero Ryan, BED AND BREAKFAST OPERATOR [Primary Care Provider] - - Diet and Activity Activity: increase activity as tolerated Diet: low fat, low cholesterol
== END 2018-09-04 14:17 | disposition home or self-care (01) | DRG 280 ==
LOC: 3ANU 10:31 → EMEROOARM 10:31 → 3ANU 16:37 → SUATTDRO 18:18
PROVIDERS: ADMIT Internal Medicine Nephrology; ATTEND Hospitalist

== ENCOUNTER 2018-10-28 16:15 | Inpatient (IN) ==
[2018-10-28 17:28] LABS: Bilirubin,Urine Negative (Negative); Blood,Urine Negative (Negative); Clarity,Urine Cloudy (Clear); Color,Urine Yellow (Yellow); Glucose,Urine (UA) Normal (Normal); Ketones,Urine Negative (Negative); Leukocyte Esterase,Urine Negative (Negative); Nitrite,Urine Negative (Negative); PH,Urine 6.5 pH Units (5.0-8.0); Protein,Urine Negative (Neg-Trace); Specific Gravity,Urine 1.019 (1.010-1.025); Urobilinogen,Urine Normal (Normal)
[2018-10-28 17:34] LABS: Bacteria,Urine None Seen per hpf (None-Few); Hyaline Casts,Urine None Seen per lpf (None-Few); RBC,Urine 0-3 per hpf (0-3); Squamous Epithelial Cell,Urine Many per lpf (None-Few); WBC,Urine 0-3 per hpf (0-3)
[2018-10-28 17:43] LABS: Alanine Aminotransferase 50 Units/L (7-52); Albumin 4.3 g/dL (3.5-5.7); Albumin/Globulin Ratio 1.4 (1.1-2.2); Alkaline Phosphatase 94 Units/L (34-104); Aspartate Amino Transferase 147 Units/L (13-39); BUN/Creatinine Ratio 32 (6-26); Bilirubin,Direct 0.6 mg/dL (0.0-0.2); Bilirubin,Indirect 1.3 mg/dL (0.0-1.2); Bilirubin,Total 1.9 mg/dL (0.3-1.0); Blood Urea Nitrogen 8 mg/dL (6-20); Carbon Dioxide 19 mEq/L (23-29); Chloride 107 mEq/L (98-107); Globulin 3.1 g/dL (2.4-3.5); Glucose 105 mg/dL (70-105); Lipase 4 Units/L (11-82); Osmolality,Calculated 295 (280-300); Potassium 3.4 mEq/L (3.5-5.1); Sodium 143 mEq/L (136-145); Total Protein 7.4 g/dL (6.4-8.9); eGFR For Non-African Americans > 60 (> 60)
[2018-10-28 17:44] LABS: Troponin I < 0.03 ng/mL (< 0.04)
[2018-10-28] MEDS ORDERED: Isovue-370 500 ML BOTTLE IVP ONE (17:54)
[2018-10-28] MEDS ORDERED: *HR* LORazepam 2 MG/ML VIAL IM STA (17:56)
[2018-10-28 18:01] LABS: Hemoglobin 12.7 g/dL (11.5-15.4)
[2018-10-28 18:03] LABS: Basophils % 0.5 %; Eosinophils # 0.3 K/mcL (0.0-0.6); Eosinophils % 8.9 %; Hematocrit 36.3 % (35.3-44.9); Immature Platelets 6.5 % (1.1-6.1); Lymphocytes % 54.7 %; Mean Corpuscular Hemoglobin 32.8 pg (28.0-33.3); Mean Corpuscular Volume 93.8 fL (83.0-100.0); Mean Platelet Volume 11.1 fL (9.4-12.4); Monocytes # 0.3 K/mcL (0.0-1.3); Monocytes % 7.5 %; Neutrophils # 1.1 K/mcL (1.6-8.9); Red Blood Count 3.87 M/mcL (3.82-4.97); Red Cell Distribution Width 12.9 % (11.5-14.5); Segmented Neutrophils % 28.4 %
[2018-10-28 18:05] LABS: Platelet Count 94 K/mcL (140-400)
--- NOTE | 2018-10-28 20:07 | Emergency Department Note ---
Disposition Clinical Impression: Multifocal pneumonia Disposition: Admitted As Inpatient Condition: Fair Referrals: NONE,PCP [Primary Care Provider] - Forms: ED Satisfaction Letter, Work/School Release Time of Disposition: 21:30 Abdominal Pain HPI - General Chief Complaint: ED Abdominal Pain Stated Complaint: general Time Seen by Provider: 10/28/18 16:23 Source: patient, EMS Mode of arrival: ambulatory Limitations: no limitations Nursing Notes Reviewed: Yes Vital Signs Reviewed: Yes - History of Present Illness HPI Narrative: 33-year-old female presents emergency Department with multiple complaints. Patient states she is intoxicated but she "only had 4 shots prior to coming in". Patient states she has pain in her abdomen in the left lower quadrant as well as in the left lower chest. Patient states she was recently diagnosed with pneumonia and finished a course of antibiotics one week ago. She had been admitted at that time. Patient denies hematochezia, melena. Denies vaginal bleeding or vaginal discharge. She states that she has generalized malaise and nausea but denies hematemesis or vomiting. No recent syncopal episode or palpitations. Pain Scale: 10 - Related Data Home Medications Medication Instructions Recorded Confirmed Montelukast [Singulair] 10 mg PO DAILY PRN 08/26/18 10/06/18 Albuterol Sulfate [Ventolin Hfa] 2 puff IH Q6H PRN 09/01/18 10/06/18 Cetirizine HCl [24Hour Allergy] 10 mg PO DAILY PRN 09/01/18 10/06/18 Fluticasone Propionate Nasal 1 spray NS DAILY PRN 09/01/18 10/06/18 [Flonase] Potassium Chloride [Klor-Con] 20 meq PO BID 09/01/18 10/06/18 Previous Rx's Medication Instructions Recorded Thiamine (B-1) [Vitamin B-1] 100 mg PO DAILY #30 tablet 08/29/18 Ertapenem [INVanz] 1,000 mg IVPB DAILY #7 vial 10/12/18 Clotrimazole Vag CRM 1 appl VG HS #1 tube 10/13/18 [Gyne-Lotrimin Vag CRM] Folic Acid 1 mg PO DAILY 30 Days #30 tablet 10/13/18 Metoprolol [Lopressor] 12.5 mg PO BID tablet 10/13/18 Allergies Allergy/AdvReac Type Severity Reaction Status Date / Time hydromorphone [From Dilaudid] PiterReac Hallucinati Verified 10/06/18 19:02 ng All systems ED: reviewed and negative except as stated. 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, other Psychiatric history: Reports: anxiety - Social History Smoking status: Never smoker Alcohol use: Reports: heavy, recent Drug use: Reports: none Physical Exam General: Alert and in no acute distress Skin: Warm, dry, intact Head: Normocephalic and atraumatic Neck: Supple, trachea midline and no tenderness Cardiovascular: RRR, no murmur, normal perfusion Respiratory: CTAB, no wheezing, cough, or respiratory distress Musculoskeletal: Normal strength, no tenderness, swelling or deformity GI: Soft, mild generalized tenderness to the upper abdomen without lateralization and the left lower quadrant. No rigidity, guarding or rebound. nondistended. Bowel sounds present Neuro: A&O to person, place, time and situation. No focal deficits noted on exam Psychiatric: cooperative and appropriate mood and affect. - General Limitations: no limitations General appearance: alert Course Vital Signs Temperature 98.1 F 10/28/18 16:21 Pulse Rate 102 10/28/18 16:21 Respiratory Rate 18 10/28/18 16:21 Blood Pressure 134/119 10/28/18 16:21 O2 Sat by Pulse Oximetry 100 10/28/18 16:21 Temperature 98.1 F 10/28/18 16:21 Pulse Rate 86 10/28/18 20:15 Respiratory Rate 18 10/28/18 20:15 Blood Pressure 117/82 10/28/18 20:15 O2 Sat by Pulse Oximetry 97 10/28/18 20:15 Oxygen Delivery Oxygen Delivery Room Air Abdominal Pain - MDM Narrative Medical decision making narrative: CT of the chest abdomen pelvis showed possible multifocal pneumonia. Patient does report a cough that is nonproductive. She has a history of alcoholic liver disease which is likely the reason why her liver enzymes and bilirubin are elevated. Patient will be started on antibiotics emergency department and admitted to the hospital for further care and evaluation. - Medical Records Medical records reviewed: Yes I reviewed the patient's medical records. - Lab Data Lab results reviewed: Yes I reviewed the patient's lab results. Result diagrams: 10/28/18 17:52 10/28/18 17:04 Lab Results 10/28/18 10/28/18 10/28/18 Range/Units 16:51 16:51 17:04 WBC (4.3-11.1) K/mcL RBC (3.82-4.97) M/mcL Hgb (11.5-15.4) g/dL Hct (35.3-44.9) % MCV (83.0-100.0) fL MCH (28.0-33.3) pg MCHC (31.6-35.5) g/dL RDW (11.5-14.5) % Plt Count (140-400) K/mcL MPV (9.4-12.4) fL Immature Gran % (0-4) % Seg Neutrophils % % Lymphocytes % % Monocytes % % Eosinophils % % Basophils % % Neutrophils # (1.6-8.9) K/mcL Lymphocytes # (0.6-4.6) K/mcL Monocytes # (0.0-1.3) K/mcL Eosinophils # (0.0-0.6) K/mcL Basophils # (0.0-0.2) K/mcL Immature Plt Fraction (1.1-6.1) % D-Dimer (0-500) ng/mLFEU Sodium 143 (136-145) mEq/L Potassium 3.4 L (3.5-5.1) mEq/L Chloride 107 (98-107) mEq/L Carbon Dioxide 19 L (23-29) mEq/L BUN 8 (6-20) mg/dL Creatinine 0.25 L (0.60-1.20) mg/dL Est GFR ( Amer) > 60 (> 60) Est GFR (Non-Af Amer) > 60 (> 60) BUN/Creatinine Ratio 32 H (6-26) Glucose 105 (70-105) mg/dL Calculated Osmolality 295 (280-300) Lactic Acid (0.5-2.2) mmol/L Calcium 9.0 (8.6-10.3) mg/dL Total Bilirubin 1.9 H (0.3-1.0) mg/dL Direct Bilirubin 0.6 H (0.0-0.2) mg/dL Indirect Bilirubin 1.3 H (0.0-1.2) mg/dL AST 147 H (13-39) Units/L ALT 50 (7-52) Units/L Alkaline Phosphatase 94 (34-104) Units/L Troponin I < 0.03 (< 0.04) ng/mL Serum Total Protein 7.4 (6.4-8.9) g/dL Albumin 4.3 (3.5-5.7) g/dL Globulin 3.1 (2.4-3.5) g/dL Albumin/Globulin Ratio 1.4 (1.1-2.2) Lipase 4 L (11-82) Units/L Urine Color Yellow (Yellow) Urine Clarity Cloudy A (Clear) Urine pH 6.5 (5.0-8.0) pH Units Ur Specific [place] 1.019 (1.010-1.025) Urine Protein Negative (Neg-Trace) mg/dL Urine Glucose (UA) Normal (Normal) mg/dL Urine Ketones Negative (Negative) mg/dL Urine Blood Negative (Negative) Urine Nitrite Negative (Negative) Urine Bilirubin Negative (Negative) Urine Urobilinogen Normal (Normal) mg/dL Ur Leukocyte Esterase Negative (Negative) Urine Microscopic RBC 0-3 (0-3) per hpf Urine Microscopic WBC 0-3 (0-3) per hpf Ur Squamous Epith Cells Many H (None-Few) per lpf Urine Bacteria None Seen (None-Few) per hpf Hyaline Casts None Seen (None-Few) per lpf Ur Culture Indicated? NO (NO) Urine Test Negative (Negative) Specimen Rejected 10/28/18 10/28/18 10/28/18 Range/Units 17:04 17:04 17:04 WBC (4.3-11.1) K/mcL RBC (3.82-4.97) M/mcL Hgb (11.5-15.4) g/dL Hct (35.3-44.9) % MCV (83.0-100.0) fL MCH (28.0-33.3) pg MCHC (31.6-35.5) g/dL RDW (11.5-14.5) % Plt Count (140-400) K/mcL MPV (9.4-12.4) fL Immature Gran % (0-4) % Seg Neutrophils % % Lymphocytes % % Monocytes % % Eosinophils % % Basophils % % Neutrophils # (1.6-8.9) K/mcL Lymphocytes # (0.6-4.6) K/mcL Monocytes # (0.0-1.3) K/mcL Eosinophils # (0.0-0.6) K/mcL Basophils # (0.0-0.2) K/mcL Immature Plt Fraction (1.1-6.1) % D-Dimer 729 H (0-500) ng/mLFEU Sodium (136-145) mEq/L Potassium (3.5-5.1) mEq/L Chloride (98-107) mEq/L Carbon Dioxide (23-29) mEq/L BUN (6-20) mg/dL Creatinine (0.60-1.20) mg/dL Est GFR ( Amer) (> 60) Est GFR (Non-Af Amer) (> 60) BUN/Creatinine Ratio (6-26) Glucose (70-105) mg/dL Calculated Osmolality (280-300) Lactic Acid 2.1 (0.5-2.2) mmol/L Calcium (8.6-10.3) mg/dL Total Bilirubin (0.3-1.0) mg/dL Direct Bilirubin (0.0-0.2) mg/dL Indirect Bilirubin (0.0-1.2) mg/dL AST (13-39) Units/L ALT (7-52) Units/L Alkaline Phosphatase (34-104) Units/L Troponin I (< 0.04) ng/mL Serum Total Protein (6.4-8.9) g/dL Albumin (3.5-5.7) g/dL Globulin (2.4-3.5) g/dL Albumin/Globulin Ratio (1.1-2.2) Lipase (11-82) Units/L Urine Color (Yellow) Urine Clarity (Clear) Urine pH (5.0-8.0) pH Units Ur Specific [place] (1.010-1.025) Urine Protein (Neg-Trace) mg/dL Urine Glucose (UA) (Normal) mg/dL Urine Ketones (Negative) mg/dL Urine Blood (Negative) Urine Nitrite (Negative) Urine Bilirubin (Negative) Urine Urobilinogen (Normal) mg/dL Ur Leukocyte Esterase (Negative) Urine Microscopic RBC (0-3) per hpf Urine Microscopic WBC (0-3) per hpf Ur Squamous Epith Cells (None-Few) per lpf Urine Bacteria (None-Few) per hpf Hyaline Casts (None-Few) per lpf Ur Culture Indicated? (NO) Urine Test (Negative) Specimen Rejected MCV Delta 10/28/18 10/28/18 Range/Units 17:52 20:49 WBC 3.7 L (4.3-11.1) K/mcL RBC 3.87 (3.82-4.97) M/mcL Hgb 12.7 (11.5-15.4) g/dL Hct 36.3 (35.3-44.9) % MCV 93.8 D (83.0-100.0) fL MCH 32.8 (28.0-33.3) pg MCHC 35.0 (31.6-35.5) g/dL RDW 12.9 (11.5-14.5) % Plt Count 94 L (140-400) K/mcL MPV 11.1 (9.4-12.4) fL Immature Gran % 0.0 (0-4) % Seg Neutrophils % 28.4 % Lymphocytes % 54.7 % Monocytes % 7.5 % Eosinophils % 8.9 % Basophils % 0.5 % Neutrophils # 1.1 L (1.6-8.9) K/mcL Lymphocytes # 2.0 (0.6-4.6) K/mcL Monocytes # 0.3 (0.0-1.3) K/mcL Eosinophils # 0.3 (0.0-0.6) K/mcL Basophils # 0.0 (0.0-0.2) K/mcL Immature Plt Fraction 6.5 H (1.1-6.1) % D-Dimer (0-500) ng/mLFEU Sodium (136-145) mEq/L Potassium (3.5-5.1) mEq/L Chloride (98-107) mEq/L Carbon Dioxide (23-29) mEq/L BUN (6-20) mg/dL Creatinine (0.60-1.20) mg/dL Est GFR ( Amer) (> 60) Est GFR (Non-Af Amer) (> 60) BUN/Creatinine Ratio (6-26) Glucose (70-105) mg/dL Calculated Osmolality (280-300) Lactic Acid 2.2 (0.5-2.2) mmol/L Calcium (8.6-10.3) mg/dL Total Bilirubin (0.3-1.0) mg/dL Direct Bilirubin (0.0-0.2) mg/dL Indirect Bilirubin (0.0-1.2) mg/dL AST (13-39) Units/L ALT (7-52) Units/L Alkaline Phosphatase (34-104) Units/L Troponin I (< 0.04) ng/mL Serum Total Protein (6.4-8.9) g/dL Albumin (3.5-5.7) g/dL Globulin (2.4-3.5) g/dL Albumin/Globulin Ratio (1.1-2.2) Lipase (11-82) Units/L Urine Color (Yellow) Urine Clarity (Clear) Urine pH (5.0-8.0) pH Units Ur Specific [place] (1.010-1.025) Urine Protein (Neg-Trace) mg/dL Urine Glucose (UA) (Normal) mg/dL Urine Ketones (Negative) mg/dL Urine Blood (Negative) Urine Nitrite (Negative) Urine Bilirubin (Negative) Urine Urobilinogen (Normal) mg/dL Ur Leukocyte Esterase (Negative) Urine Microscopic RBC (0-3) per hpf Urine Microscopic WBC (0-3) per hpf Ur Squamous Epith Cells (None-Few) per lpf Urine Bacteria (None-Few) per hpf Hyaline Casts (None-Few) per lpf Ur Culture Indicated? (NO) Urine Test (Negative) Specimen Rejected - Radiology Data Radiology results reviewed: Yes I reviewed the patient's radiology results. - EKG Data EKG attestation: Yes I reviewed and interpreted this EKG. EKG results narrative: Vital signs with a rate of 89 without evidence of STEMI or other dysrhythmia. QTC of 492, QRS 89.
[2018-10-28] MEDS ORDERED: Azithromycin 500 MG in D5% in Water 250 ML IVPB STA (21:40)
[2018-10-28] MEDS ORDERED: Piperacillin/Tazobactam 3.375 GM in 0.9 % Sodium Chloride Mini Bag 100 ML IVPB ONE (21:40)
[2018-10-28] MEDS ORDERED: Vancomycin 1,000 MG in D5% in Water 250 ML IVPB ONE (21:40)
[2018-10-29] MEDS ORDERED: *HR* HYDROcodone/Acet 5/325 mg TABLET PO ONE (01:56)
[2018-10-29] MEDS ORDERED: Naloxone 0.4 MG/ML INJ IVP PRN (03:05)
[2018-10-29] MEDS ORDERED: Albuterol 2.5 MG/3 ML NEBULIZER IH PRN (03:09)
[2018-10-29] MEDS ORDERED: Fluticasone Propionate Nasal 50 MCG/SPRAY BOTTLE NS PRN (03:09)
[2018-10-29] MEDS ORDERED: Loratadine 10 MG TABLET PO PRN (03:09)
[2018-10-29] MEDS: *HR* Promethazine 25 MG/ML VIAL IVP PRN ×2 (03:20→11:41)
--- NOTE | 2018-10-29 03:48 | Internal Med History&Physical ---
Date of Encounter: 10/29/18 Time of Encounter: 01:35 Internal Medicine - H&P: HPI Chief complaint: cough, SOB, abdominal pain, alcohol withdrawal Admitted From: Emergency Dept Plans for Post Hospital Care: Home History of present illness: Ms. Garvey is a 33 year old female who presents to the ER tonight with complaints of cough, shortness of breath, weakness, abdominal pain, and withdrawal from alcohol. She had CT imaging of her chest and abdomen in the ER, which found patient to have evidence of multifocal pneumonia and fatty liver infiltration. Because of her recent treatment for pneumonia, which she failed, and current complaints, she was admitted to hospitalist service. She was hospitalized just 2 weeks ago and discharged on the 14 of this month. Upon my assessment of the patient, patient loudly and readily exclaimed that she is going through withdrawal from alcohol. She states she drinks a pint of hard liquor per day, but she hides it from her children and her . She states that she only had 4 shots yesterday and is actively withdrawing. She appears to be highly anxious, dramatic, and seeking pain medications to some degree. She is not jittery, shaky, nauseated, vomiting, or having diarrhea at the present time. She denies any hallucinations. Her complaints of abdominal pain appear to be out of proportion to her actual exam. CT scan and exam suggest a benign finding, but she is complaining of excruciating abdominal pain. I cautioned her on the use of pain medications, especially considering her liver disease and alcohol abuse history. Regarding her pneumonia, she states she finished antibiotics as prescribed but continues to cough, have pleuritic-type chest pain, subjective fevers, and short of breath. She denies any hemoptysis or hematemesis. Past Med Surg Social Fam HX - Past Medical History Attestation: Yes The following information was validated with the patient. Source: patient, old records reviewed Medical history: hepatitis, hypertension, kidney stones, liver disease, renal disease, seizures, other Additional medical history: nosebleeds. CDiff. Chest pain. high ammonia. chronic cough. Last reported seizure unknown Psychiatric history: anxiety - Past Surgical History Surgical History: cholecystectomy Additional surgical history: gastric sleeve 2014. D&C x 2. UTERINE ABLATION. tubal ligation - Social History Smoking Status: Never smoker Smokeless Tobacco Status: No Alcohol use: heavy, recent Drug use: none Current living situation: Home, With Family Activity Level: Independent ambulation Recent Out of Country Travel Within the Last 8 Weeks: No - Family History Mother Living Status: Still Living Hx Family Cardiac Disorders: Yes (MIx2, HTN) Hx Family GI Disorders: No Father Living Status: Still Living Hx Family Cardiac Disorders: Yes (MIx2) Hx Family GI Disorders: No Internal Medicine - H&P: Meds Montelukast [Singulair] 10 mg PO DAILY PRN 08/26/18 [History] Thiamine (B-1) [Vitamin B-1] 100 mg PO DAILY #30 tablet 08/29/18 [Rx] Albuterol Sulfate [Ventolin Hfa] 2 puff IH Q6H PRN 09/01/18 [History] Cetirizine HCl [24Hour Allergy] 10 mg PO DAILY PRN 09/01/18 [History] Fluticasone Propionate Nasal [Flonase] 1 spray NS DAILY PRN 09/01/18 [History] Potassium Chloride [Klor-Con] 20 meq PO BID 09/01/18 [History] Ertapenem [INVanz] 1,000 mg IVPB DAILY #7 vial 10/12/18 [Rx] Clotrimazole Vag CRM [Gyne-Lotrimin Vag CRM] 1 appl VG HS #1 tube 10/13/18 [Rx] Folic Acid 1 mg PO DAILY 30 Days #30 tablet 10/13/18 [Rx] Metoprolol [Lopressor] 12.5 mg PO BID tablet 10/13/18 [Rx] Allergy/AdvReac Type Severity Reaction Status Date / Time hydromorphone [From Dilaudid] AdvReac Hallucinati Verified 10/06/18 19:02 ng - Constitutional Constitutional: chills, fever(s), no night sweats - EENT Eyes: no blurry vision, no change in vision Ears: no ear pain, no tinnitus Nose, mouth and throat: no nasal congestion, no sinus pressure, no sore throat - Cardiovascular Cardiovascular ROS IM: chest pain, no lightheadedness, no palpitations, no paroxysmal nocturnal dyspnea, no syncope - Respiratory Respiratory: cough, dyspnea, pain on inspiration, chest congestion, pain with cough, no hemoptysis, no excessive phlegm production, no change in phlegm color - Gastrointestinal Gastrointestinal: abdominal pain, nausea, no diarrhea, no hematemesis, no hematochezia, no melena, no vomiting - Genitourinary Genitourinary: no dysuria, no flank pain, no hematuria - Musculoskeletal Musculoskeletal ROS IM: no arthralgias, no back pain - Integumentary Integumentary IM: no rash, no jaundice - Neurological Neurological ROS: no confusion, no convulsions, no disequilibrium, no dizziness, no focal weakness - Psychiatric Psychiatric: anxiety, no hallucinations - Endocrine Endocrine IM: no cold intolerance, no heat intolerance, no polydipsia, no polyuria - Allergic/Immunologic Allergic/Immunologic: no GI upset with certain foods - Constitutional Vitals: Temp Pulse Resp BP Pulse Ox 98.6 F 80 14 135/88 100 10/29/18 00:10/29/18 00:10/29/18 00:20 10/29/18 00:10/29/18 00:20 General appearance: Present: A&O X 3, no acute distress Exam: anxious, boisterous, dramatic - Head Head exam: Present: atraumatic, normal inspection - Eye Eye exam: Present: EOMI, PERRL. Absent: scleral icterus Pupils: Present: normal accommodation - ENT ENT exam: Present: mucous membranes moist, normal exam, normal oropharynx - Neck Neck exam general surgery: Present: full ROM, supple, trachea midline. Absent: tenderness, nuchal rigidity, thyromegaly - Respiratory Respiratory exam: Present: prolonged expiratory phase, rales (faint scattered rales), rhonchi. Absent: chest wall tenderness, respiratory distress, wheezes, tachypnea - Cardiovascular Cardiovascular exam: Present: RRR, +S1, +S2. Absent: diastolic murmur, systolic murmur - GI/Abdominal GI/Abdominal exam: Present: normal bowel sounds, soft, tenderness (diffuse -- when patient is distracted in conversation, she exhibits no pain on palpation), no peritoneal signs. Absent: guarding, hepatomegaly, mass, rebound, splenomegaly - Extremities Exam Extremities exam: Present: full ROM, normal capillary refill, warm, radial pulses palpable and symmetrical. Absent: calf tenderness, joint swelling, tenderness - Back Exam Back exam: Absent: CVA tenderness (L), CVA tenderness (R) - Neurological Exam Neurological exam: Present: alert, CN II-XII intact, oriented X3, no focal deficits, strengths equal and symetr throughout - Psychiatric Psychiatric exam: Present: anxious, manic (appears manic to a degree). Absent: homicidal ideation, suicidal ideation - Skin Skin exam: Present: dry, intact, warm Internal Med - H&P Results - Labs CBC & Chem 7: 10/28/18 17:52 10/28/18 17:04 Labs: Short CBC 10/28/18 Range/Units 17:52 WBC 3.7 L (4.3-11.1) K/mcL Hgb 12.7 (11.5-15.4) g/dL Hct 36.3 (35.3-44.9) % Plt Count 94 L (140-400) K/mcL Neutrophils # 1.1 L (1.6-8.9) K/mcL BMP 10/28/18 17:04 Sodium 143 Potassium 3.4 L Chloride 107 Carbon Dioxide 19 L BUN 8 Creatinine 0.25 L Glucose 105 Calcium 9.0 Cardiac Enzymes 10/28/18 Range/Units 17:04 Troponin I < 0.03 (< 0.04) ng/mL Liver Function 10/28/18 Range/Units 17:04 Total Bilirubin 1.9 H (0.3-1.0) mg/dL Direct Bilirubin 0.6 H (0.0-0.2) mg/dL AST 147 H (13-39) Units/L ALT 50 (7-52) Units/L Alkaline Phosphatase 94 (34-104) Units/L Albumin 4.3 (3.5-5.7) g/dL Urine 10/28/18 Range/Units 16:51 Urine Color Yellow (Yellow) Urine Clarity Cloudy A (Clear) Urine pH 6.5 (5.0-8.0) pH Units Ur Specific [place] 1.019 (1.010-1.025) Urine Protein Negative (Neg-Trace) mg/dL Urine Glucose (UA) Normal (Normal) mg/dL - EKG Data -: EKG Interpreted by Myself - EKG Data Prior EKG available for review: no EKG comments: 10/29/18 03:56 NSR; no acute ST changes - Impressions ITS Impressions Chest X-Ray 10/28/18 16:55 IMPRESSION: No acute abnormality detected. D/ / Shaka Sher MD / Shaka Sher MD Interpreting Provider: Shaka Sher MD Chest CTA 10/28/18 17:54 IMPRESSION: 1. No CT evidence of a pulmonary embolism. 2. No acute abnormality of the thoracic aorta. 3. New scattered nonspecific ground-glass opacities within the bilateral upper lobes, which likely reflect either asymmetric pulmonary edema or multifocal pneumonia. 4. Multiple new noncalcified nodules within both lungs, the largest measuring 5 mm within the right lower lobe. While these are likely benign, further follow-up of these nodules is as advised below. 5. No acute process within the abdomen or pelvis. 6. Chronic severe diffuse hepatic steatosis. 7. Stable mild splenomegaly. 8. Patient is status post cholecystectomy and gastrectomy. RECOMMENDATIONS: Fleischner Society guidelines for follow-up and management of incidentally detected pulmonary nodules: Multiple Solid Nodules: Nodule size less than 6 mm In a low-risk patient, no routine follow-up. In a high-risk patient, optional CT at 12 months. Radiology 2017 http://pubs.rsna.org/doi/full/10.1148/radiol.7301794386 D/ / 10/28/2018 20:47:58 Darinel George MD / [facility] Interpreting Provider: Darinel George MD Abdomen/Pelvis CT 10/28/18 17:55 IMPRESSION: 1. No CT evidence of a pulmonary embolism. 2. No acute abnormality of the thoracic aorta. 3. New scattered nonspecific ground-glass opacities within the bilateral upper lobes, which likely reflect either asymmetric pulmonary edema or multifocal pneumonia. 4. Multiple new noncalcified nodules within both lungs, the largest measuring 5 mm within the right lower lobe. While these are likely benign, further follow-up of these nodules is as advised below. 5. No acute process within the abdomen or pelvis. 6. Chronic severe diffuse hepatic steatosis. 7. Stable mild splenomegaly. 8. Patient is status post cholecystectomy and gastrectomy. RECOMMENDATIONS: Fleischner Society guidelines for follow-up and management of incidentally detected pulmonary nodules: Multiple Solid Nodules: Nodule size less than 6 mm In a low-risk patient, no routine follow-up. In a high-risk patient, optional CT at 12 months. Radiology 2017 http://pubs.rsna.org/doi/full/10.1148/radiol.2039699458 D/ / 10/28/2018 20:47:58 Darinel George MD / [facility] Inter[facility]ting Provider: Darinel George MD - Diagnostic Studies CT scan - chest Status: image reviewed by me (multifocal pneumonia; CT abdomen -- negative) - Assessment and Plan (1) Multifocal pneumonia Current Visit: Yes Status: Acute Assessment and plan: 1. Blood cultures collected in ER. 2. I ordered sputum culture. 3. Continue Zosyn and Levaquin. 4. Patient received Vancomycin in ER; I'm not sure she needs Vancomycin right now. Consider resuming it pending clinical course and/or culture results. 5. Oxygen and aerosols as needed for support. (2) Alcoholic fatty liver Current Visit: Yes Status: Chronic Assessment and plan: 1. Patient counseled on the need to stop alcohol consumption. 2. Her complaint of pain is out of proportion to exam. Monitor clinically and treat cautiously with pain meds. Discussed with patient at length. (3) Alcohol withdrawal Current Visit: Yes Status: Acute Assessment and plan: 1. CIWA protocol ordered. 2. MVI/Thiamine/Folate ordered. 3. Monitor on telemetry, Qualifiers: Complication of substance-induced condition: uncomplicated Qualified Code(s): F10.230 - Alcohol dependence with withdrawal, uncomplicated (4) Chest pain Current Visit: Yes Status: Acute Assessment and plan: 1. Trend troponins and EKG's. 2. Monitor on telemetry. 3. Treat underlying pneumonia. 4. No PE on CTA chest. Qualifiers: Chest pain type: other chest pain Qualified Code(s): R07.89 - Other chest pain; R07.8 - Other chest pain (5) DVT prophylaxis Current Visit: Yes Status: Resolved Assessment and plan: 1. Heparin SQ.
[2018-10-29] MEDS ORDERED: Ipratropium/Albuterol Neb 3 ML IH SCH (04:00)
[2018-10-29] MEDS: 0.9 % Sodium Chloride w KCl 20 MEQ/1,000 ML MLS IVC SCH ×2 (04:22→17:10)
[2018-10-29] MEDS ORDERED: Ipratropium/Albuterol Neb 3 ML IH PRN (05:19)
[2018-10-29 05:44] LABS: Immature Granulocytes % 0.4 % (0-4); Mean Corpuscular HGB Conc 35.3 g/dL (31.6-35.5); Mean Corpuscular Hemoglobin 32.8 pg (28.0-33.3); Mean Corpuscular Volume 92.8 fL (83.0-100.0); Mean Platelet Volume 10.9 fL (9.4-12.4)
[2018-10-29 05:45] LABS: Basophils % 0.4 %; Eosinophils # 0.1 K/mcL (0.0-0.6); Eosinophils % 4.7 %; Hematocrit 32.3 % (35.3-44.9); Hemoglobin 11.4 g/dL (11.5-15.4); Immature Platelets 6.1 % (1.1-6.1); Lymphocytes # 0.8 K/mcL (0.6-4.6); Lymphocytes % 29.3 %; Monocytes # 0.2 K/mcL (0.0-1.3); Monocytes % 8.6 %; Neutrophils # 1.5 K/mcL (1.6-8.9); Red Blood Count 3.48 M/mcL (3.82-4.97); Red Cell Distribution Width 12.6 % (11.5-14.5); Segmented Neutrophils % 56.6 %
[2018-10-29 05:47] LABS: Platelet Count 71 K/mcL (140-400)
[2018-10-29 05:48] LABS: Platelet Estimate Decreased (Normal)
[2018-10-29 05:58] LABS: INR 1.2; Prothrombin Time 13.6 Seconds (9.4-12.1)
[2018-10-29 06:00] LABS: Activated Partial Thrombo Time 33.7 Seconds (26.0-36.0)
[2018-10-29 06:07] LABS: Alanine Aminotransferase 43 Units/L (7-52); Albumin 3.9 g/dL (3.5-5.7); Albumin/Globulin Ratio 1.4 (1.1-2.2); Alkaline Phosphatase 81 Units/L (34-104); Aspartate Amino Transferase 117 Units/L (13-39); BUN/Creatinine Ratio 22 (6-26); Bilirubin,Total 2.2 mg/dL (0.3-1.0); Blood Urea Nitrogen 6 mg/dL (6-20); Calcium 8.4 mg/dL (8.6-10.3); Carbon Dioxide 22 mEq/L (23-29); Chloride 101 mEq/L (98-107); Chol/HDL Ratio 2.3 (0-4.9); Cholesterol 147 mg/dL (< 200); Globulin 2.8 g/dL (2.4-3.5); Glucose 99 mg/dL (70-105); HDL Cholesterol 64 mg/dL (40-59); LDL Cholesterol,Calculated 66 mg/dL (0-99); Magnesium 1.2 mg/dL (1.6-2.6); Osmolality,Calculated 280 (280-300); Potassium 3.2 mEq/L (3.5-5.1); Sodium 136 mEq/L (136-145); Total Protein 6.7 g/dL (6.4-8.9); Triglycerides 86 mg/dL (< 150); eGFR For Non-African Americans > 60 (> 60)
[2018-10-29] MEDS: *HR* LORazepam 2 MG/ML VIAL IVP PRN ×3 (06:17→20:32)
[2018-10-29] MEDS: traMADol 50 MG TABLET PO PRN ×2 (08:26→17:50)
[2018-10-29] MEDS: Vitamin B Complex/Vit C/Vit E 1 EACH TABLET PO SCH (08:27)
[2018-10-29] MEDS: Folic Acid 1 MG TABLET PO SCH (08:27)
[2018-10-29] MEDS: Thiamine (B-1) 100 MG TABLET PO SCH (08:29)
[2018-10-29] MEDS: Piperacillin/Tazobactam 3.375 GM in 0.9 % Sodium Chloride Mini Bag 100 ML IVPB SCH ×2 (08:41→17:07)
--- NOTE | 2018-10-29 09:20 | Electrocardiograph Report ---
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
--- NOTE | 2018-10-29 09:27 | Electrocardiograph Report ---
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
[2018-10-29] MEDS: Potassium Chloride 20 MEQ, Lidocaine 1% 2 ML in D5% in Water 250 ML IVPB SCH ×2 (11:27→13:48)
[2018-10-29] MEDS ORDERED: *HR* LORazepam 2 MG/ML VIAL IVP PRN (11:58)
[2018-10-29] MEDS: Levofloxacin 750 MG/150 ML 750 MG/150 ML BAG IVPB SCH (12:43)
--- NOTE | 2018-10-29 13:55 | Event Note ---
Date of Encounter: 10/29/18 Time of Encounter: 13:54 Patient is a 33y/o female admitted for multifocal PNA, alcohol withdrawals. Pt seen and examined at bedside, resting in bed and reports of feeling hungry and wishes to advance her diet from clear liquids. She has been tolerating clear liquid diet without any discomfort. Labs and vitals reviewed. Electrolyte abnormalities noted: Hypokalemia, Hypomagnesemia: K and Mg supplemented Will continue current abx management f/u culture results will continue CIWA monitoring continue current management.
[2018-10-30] MEDS: *HR* LORazepam 2 MG/ML VIAL IVP PRN ×3 (01:22→06:32)
[2018-10-30] MEDS: Piperacillin/Tazobactam 3.375 GM in 0.9 % Sodium Chloride Mini Bag 100 ML IVPB SCH ×2 (01:26→08:44)
[2018-10-30 05:31] LABS: Basophils % 0.4 %; Eosinophils # 0.2 K/mcL (0.0-0.6); Eosinophils % 7.7 %; Hematocrit 32.7 % (35.3-44.9); Hemoglobin 11.2 g/dL (11.5-15.4); Immature Granulocytes % 0.4 % (0-4); Lymphocytes # 0.9 K/mcL (0.6-4.6); Lymphocytes % 33.1 %; Mean Corpuscular HGB Conc 34.3 g/dL (31.6-35.5); Mean Corpuscular Hemoglobin 32.6 pg (28.0-33.3); Mean Corpuscular Volume 95.1 fL (83.0-100.0); Mean Platelet Volume 11.4 fL (9.4-12.4); Monocytes # 0.3 K/mcL (0.0-1.3); Monocytes % 9.6 %; Neutrophils # 1.3 K/mcL (1.6-8.9); Red Blood Count 3.44 M/mcL (3.82-4.97); Red Cell Distribution Width 12.6 % (11.5-14.5); Segmented Neutrophils % 48.8 %
[2018-10-30 05:33] LABS: Platelet Count 56 K/mcL (140-400)
[2018-10-30 05:52] LABS: BUN/Creatinine Ratio 18 (6-26); Blood Urea Nitrogen 6 mg/dL (6-20); Calcium 9.1 mg/dL (8.6-10.3); Carbon Dioxide 21 mEq/L (23-29); Chloride 106 mEq/L (98-107); Glucose 100 mg/dL (70-105); Magnesium 1.9 mg/dL (1.6-2.6); Osmolality,Calculated 284 (280-300); Phosphorous 3.4 mg/dL (2.7-4.5); Potassium 3.9 mEq/L (3.5-5.1); Sodium 138 mEq/L (136-145); eGFR For Non-African Americans > 60 (> 60)
[2018-10-30] MEDS ORDERED: *HR* LORazepam 2 MG/ML VIAL IVP STA (07:56)
[2018-10-30] MEDS: Levofloxacin 750 MG/150 ML 750 MG/150 ML BAG IVPB SCH (08:30)
[2018-10-30] MEDS: Vitamin B Complex/Vit C/Vit E 1 EACH TABLET PO SCH (08:44)
[2018-10-30] MEDS: Thiamine (B-1) 100 MG TABLET PO SCH (08:44)
[2018-10-30] MEDS: Folic Acid 1 MG TABLET PO SCH (08:44)
--- NOTE | 2018-10-30 09:38 | Internal Med Progress Note ---
Hospitalist Progress Note - Encounter Date of Encounter: 10/30/18 Time of Encounter: 08:45 - Subjective Interval History: Patient seen and examined with sitter present at bedside. Overnight patient was reported of being delirious, actively hallucinating, due to which a bedside sitter was placed. She keeps stating she is moving to [place] and her is waiting outside. She is oriented to self but thinks she is in the ER and is not oriented to time. Pt has received 4mg IV Ativan in the last couple of hours. Will start patient on precedex drip and transfer to She denies any pain or discomfort but is actively delirious at this time. Ten point ROS is negative except as listed above - Exam Vitals: Temp Pulse Resp BP Pulse Ox 98.3 F 160 16 147/109 98 10/30/18 08:36 10/30/18 08:36 10/30/18 08:36 10/30/18 08:36 10/30/18 08:36 Exam: General: No acute distress, AAO x 1, confused, anxious HEENT: EOMI, NC/AT, no scleral icterus Respiratory: Clear to auscultate bilaterally, no wheezing, no rales Cardiovascular: Regular, Rate, Rhythm, No murmurs GI: Soft, Non tender, non distended, normal bowel sounds Ext: No edema, no tenderness, positive pulses Neuro: no focal deficits Rest of the clinical exam is noncontributory - Assessment and Plan (1) Alcohol withdrawal Current Visit: Yes Status: Acute Assessment and Plan: Noted to have acute delirium likely secondary to alcohol withdrawal Will start on precedex drip continue CIWA monitoring will continue bedside sitter for safety at this time concern for elopement, therefore will keep sitter at bedtime. If needed, will place a Decisional incapacity hold continue Folate and thiamine supplementation at this time Noted to be hypertensive this morning, likely secondary to acute alcohol withdrawal, will closely monitor (2) Chest pain Current Visit: Yes Status: Resolved Assessment and Plan: resolved serial troponins are negative likely secondary to underlying anxiety/pneumonia/alcohol withdrawals (3) Multifocal pneumonia Current Visit: Yes Status: Acute Assessment and Plan: Continue IV abx (levofloxacin), discontinued Zosyn at this time follow up blood cultures O2 support as needed bronchodilator support as needed (4) Alcoholic fatty liver Current Visit: Yes Status: Chronic (5) DVT prophylaxis Current Visit: Yes Status: Resolved Assessment and Plan: Heparin SQ - Time Spent with Patient Total time spent is greater than 50% in coordination of care (as documented) at patient's floor/unit and/or counseling patient: 25 - 35 minutes Plan of Care Discussed with: patient (patient/RN/pharmacist/case management) Internal Medicine: Result - Labs CBC & Chem 7: 10/30/18 05:09 10/30/18 05:09 Labs: Short CBC 10/30/18 Range/Units 05:09 WBC 2.6 L (4.3-11.1) K/mcL Hgb 11.2 L (11.5-15.4) g/dL Hct 32.7 L (35.3-44.9) % Plt Count 56 L (140-400) K/mcL Neutrophils # 1.3 L (1.6-8.9) K/mcL BMP 10/30/18 05:09 Sodium 138 Potassium 3.9 Chloride 106 Carbon Dioxide 21 L BUN 6 Creatinine 0.33 L Glucose 100 Calcium 9.1 Cardiac Enzymes 10/29/18 10/29/18 Range/Units 09:37 Unknown Troponin I < 0.03 < 0.03 (< 0.04) ng/mL - ABG Interpretation ABG results: PT/INR, D-dimer PT 13.6 Seconds (9.4-12.1) H 10/29/18 05:32 729 ng/mLFEU (0-500) H 10/28/18 17:04 - Impressions Impressions Chest CTA 10/28/18 17:54 IMPRESSION: 1. No CT evidence of a pulmonary embolism. 2. No acute abnormality of the thoracic aorta. 3. New scattered nonspecific ground-glass opacities within the bilateral upper lobes, which likely reflect either asymmetric pulmonary edema or multifocal pneumonia. 4. Multiple new noncalcified nodules within both lungs, the largest measuring 5 mm within the right lower lobe. While these are likely benign, further follow-up of these nodules is as advised below. 5. No acute process within the abdomen or pelvis. 6. Chronic severe diffuse hepatic steatosis. 7. Stable mild splenomegaly. 8. Patient status post cholecystectomy and gastrectomy. RECOMMENDATIONS: Fleischner Society guidelines for follow-up and management of incidentally detected pulmonary nodules: Multiple Solid Nodules: Nodule size less than 6 mm In a low-risk patient, no routine follow-up. In a high-risk patient, optional CT at 12 months. Radiology 2017 http://pubs.rsna.org/doi/full/10.1148/radiol.9958335966 D/ / 10/28/2018 20:47:58 Darinel George MD / [facility] Interpreting Provider: Darinel George MD Abdomen/Pelvis CT 10/28/18 17:55 IMPRESSION: 1. No CT evidence of a pulmonary embolism. 2. No acute abnormality of the thoracic aorta. 3. New scattered nonspecific ground-glass opacities within the bilateral upper lobes, which likely reflect either asymmetric pulmonary edema or multifocal pneumonia. 4. Multiple new noncalcified nodules within both lungs, the largest measuring 5 mm within the right lower lobe. While these are likely benign, further follow-up of these nodules is as advised below. 5. No acute process within the abdomen or pelvis. 6. Chronic severe diffuse hepatic steatosis. 7. Stable mild splenomegaly. 8. Patient status post cholecystectomy and gastrectomy. RECOMMENDATIONS: Fleischner Society guidelines for follow-up and management of incidentally detected pulmonary nodules: Multiple Solid Nodules: Nodule size less than 6 mm In a low-risk patient, no routine follow-up. In a high-risk patient, optional CT at 12 months. Radiology 2017 http://pubs.rsna.org/doi/full/10.1148/radiol.8920463134 D/ / 10/28/2018 20:47:58 Darinel George MD / [facility] Interpreting Provider: Darinel George MD Consult Discharge Plan - Plan Referrals: Vero Ryan, [employer]PER[employer] [Advanced Practice Nurse] - (1) Alcohol withdrawal Qualifiers: Complication of substance-induced condition: uncomplicated Qualified Code(s): F10.230 - Alcohol dependence with withdrawal, uncomplicated (2) Chest pain Qualifiers: Chest pain type: other chest pain Qualified Code(s): R07.89 - Other chest pain; R07.8 - Other chest pain
[2018-10-30] MEDS ORDERED: 0.9 % Sodium Chloride 500 ML ONE (09:49)
[2018-10-30] MEDS: Dexmedetomidine HCl 400 MCG/100 ML MLS IVC SCH (10:08)
[2018-10-30] MEDS: Acetaminophen 325 MG TABLET PO PRN (14:38)
[2018-10-30] MEDS: *HR* Heparin 5,000 UNIT/ML VIAL SQ SCH (17:57)
[2018-10-30] MEDS: traMADol 50 MG TABLET PO PRN (23:11)
[2018-10-31] MEDS: Dexmedetomidine HCl 400 MCG/100 ML MLS IVC SCH ×2 (01:28→20:24)
[2018-10-31] MEDS: Acetaminophen 325 MG TABLET PO PRN ×3 (03:45→20:23)
[2018-10-31 04:01] LABS: Hemoglobin 10.3 g/dL (11.5-15.4); Mean Corpuscular Volume 96.8 fL (83.0-100.0); Mean Platelet Volume 11.8 fL (9.4-12.4); Red Cell Distribution Width 12.7 % (11.5-14.5)
[2018-10-31 04:02] LABS: Eosinophils # 0.2 K/mcL (0.0-0.6); Hematocrit 30.2 % (35.3-44.9); Immature Granulocytes % 0.4 % (0-4); Immature Platelets 11.8 % (1.1-6.1); Lymphocytes % 34.8 %; Mean Corpuscular HGB Conc 34.1 g/dL (31.6-35.5); Monocytes # 0.3 K/mcL (0.0-1.3); Monocytes % 9.8 %; Neutrophils # 1.3 K/mcL (1.6-8.9); Red Blood Count 3.12 M/mcL (3.82-4.97)
[2018-10-31 04:03] LABS: Platelet Count 51 K/mcL (140-400)
[2018-10-31] MEDS: *HR* Heparin 5,000 UNIT/ML VIAL SQ SCH ×2 (04:13→18:47)
[2018-10-31 04:18] LABS: BUN/Creatinine Ratio 32 (6-26); Blood Urea Nitrogen 9 mg/dL (6-20); Calcium 8.5 mg/dL (8.6-10.3); Carbon Dioxide 19 mEq/L (23-29); Chloride 108 mEq/L (98-107); Glucose 95 mg/dL (70-105); Magnesium 1.7 mg/dL (1.6-2.6); Osmolality,Calculated 278 (280-300); Phosphorous 3.6 mg/dL (2.7-4.5); Potassium 3.4 mEq/L (3.5-5.1); Sodium 135 mEq/L (136-145); eGFR For Non-African Americans > 60 (> 60)
[2018-10-31] MEDS: traMADol 50 MG TABLET PO PRN ×2 (06:31→22:08)
--- NOTE | 2018-10-31 06:42 | Internal Med Progress Note ---
Hospitalist Progress Note - Encounter Date of Encounter: 10/31/18 Time of Encounter: 06:40 - Subjective Interval History: She was examined. Admitted with pneumonia that failed outpatient therapy. Also is on CIWA protocol for alcohol withdrawals. Started on Precedex yesterday. Still has tremors and feels shaky - Exam Vitals: Temp Pulse Resp BP Pulse Ox 97.8 F 60 17 114/67 99 10/31/18 04:01 10/31/18 06:31 10/31/18 04:01 10/31/18 06:31 10/31/18 04:01 Exam: GEN: NAD CVS: RRR. S1, S2, No m/r/g RESP: CTAB ABD: Soft, NT, ND, +BS EXT: No edema. 2+ DP. No rashes NEURO: Nonfocal - Assessment and Plan (1) Alcohol withdrawal Current Visit: Yes Status: Acute Assessment and Plan: c/w CIWA protocol. c/w precedex and wean as tolerated. folic acid, thiamine, and multivitamins ordered. (2) Multifocal pneumonia Current Visit: Yes Status: Acute Assessment and Plan: c/w Levaquine. O2 support as needed. Nebs. cultures neg to date. Has been dealing with cough for 8 weeks or so. Has black mold at home and is moving with her boyfried. (3) Chest pain Current Visit: Yes Status: Resolved Assessment and Plan: resolved serial troponins are negative likely secondary to underlying anxiety/pneumonia/alcohol withdrawals (4) Alcoholic fatty liver Current Visit: Yes Status: Chronic Assessment and Plan: Needs to have follow up with Dr. Dye. Counseled on alcohol cessation. (5) DVT prophylaxis Current Visit: Yes Status: Resolved Assessment and Plan: Heparin SQ - Time Spent with Patient Total time spent is greater than 50% in coordination of care (as documented) at patient's floor/unit and/or counseling patient: Internal Medicine: Result - Labs CBC & Chem 7: 10/31/18 03:45 10/31/18 03:45 Labs: Short CBC 10/31/18 Range/Units 03:45 WBC 2.8 L (4.3-11.1) K/mcL Hgb 10.3 L (11.5-15.4) g/dL Hct 30.2 L (35.3-44.9) % Plt Count 51 L (140-400) K/mcL Neutrophils # 1.3 L (1.6-8.9) K/mcL BMP 10/31/18 03:45 Sodium 135 L Potassium 3.4 L Chloride 108 H Carbon Dioxide 19 L BUN 9 Creatinine 0.28 L Glucose 95 Calcium 8.5 L - ABG Interpretation ABG results: PT/INR, D-dimer PT 13.6 Seconds (9.4-12.1) H 10/29/18 05:32 729 ng/mLFEU (0-500) H 10/28/18 17:04 Consult Discharge Plan - Plan Referrals: Sherin Daley, DIRECTOR OF [employer]PORATE SPONSORSHIPS [Advanced Practice Nurse] - 11/17/18 3:15 pm (Vero Ryan is no longer with this Doctor's office) (1) Alcohol withdrawal Qualifiers: Complication of substance-induced condition: uncomplicated Qualified Code(s): F10.230 - Alcohol dependence with withdrawal, uncomplicated (3) Chest pain Qualifiers: Chest pain type: other chest pain Qualified Code(s): R07.89 - Other chest pain; R07.8 - Other chest pain
[2018-10-31] MEDS: Folic Acid 1 MG TABLET PO SCH (09:37)
[2018-10-31] MEDS: Thiamine (B-1) 100 MG TABLET PO SCH (09:37)
[2018-10-31] MEDS: Levofloxacin 750 MG/150 ML 750 MG/150 ML BAG IVPB SCH (09:37)
[2018-10-31] MEDS: Vitamin B Complex/Vit C/Vit E 1 EACH TABLET PO SCH (09:37)
[2018-10-31] MEDS ORDERED: 0.9 % Sodium Chloride 500 ML ONE (11:11)
[2018-11-01 02:51] LABS: Immature Granulocytes % 0.3 % (0-4)
[2018-11-01 02:52] LABS: Basophils % 0.3 %; Eosinophils # 0.2 K/mcL (0.0-0.6); Eosinophils % 6.8 %; Hematocrit 30.5 % (35.3-44.9); Hemoglobin 10.5 g/dL (11.5-15.4); Immature Platelets 12.3 % (1.1-6.1); Lymphocytes # 1.2 K/mcL (0.6-4.6); Lymphocytes % 36.6 %; Mean Corpuscular HGB Conc 34.4 g/dL (31.6-35.5); Mean Corpuscular Hemoglobin 32.8 pg (28.0-33.3); Mean Corpuscular Volume 95.3 fL (83.0-100.0); Mean Platelet Volume 12.9 fL (9.4-12.4); Monocytes # 0.4 K/mcL (0.0-1.3); Monocytes % 10.6 %; Neutrophils # 1.5 K/mcL (1.6-8.9); Red Cell Distribution Width 12.6 % (11.5-14.5); Segmented Neutrophils % 45.4 %
[2018-11-01 02:53] LABS: Platelet Count 55 K/mcL (140-400)
[2018-11-01 03:14] LABS: Alanine Aminotransferase 29 Units/L (7-52); Albumin 3.6 g/dL (3.5-5.7); Albumin/Globulin Ratio 1.3 (1.1-2.2); Alkaline Phosphatase 88 Units/L (34-104); Aspartate Amino Transferase 79 Units/L (13-39); BUN/Creatinine Ratio 31 (6-26); Bilirubin,Total 1.2 mg/dL (0.3-1.0); Blood Urea Nitrogen 11 mg/dL (6-20); Calcium 8.8 mg/dL (8.6-10.3); Carbon Dioxide 20 mEq/L (23-29); Chloride 107 mEq/L (98-107); Globulin 2.7 g/dL (2.4-3.5); Glucose 87 mg/dL (70-105); Magnesium 1.6 mg/dL (1.6-2.6); Osmolality,Calculated 279 (280-300); Potassium 4.1 mEq/L (3.5-5.1); Sodium 135 mEq/L (136-145); Total Protein 6.3 g/dL (6.4-8.9); eGFR For Non-African Americans > 60 (> 60)
[2018-11-01] MEDS: *HR* Heparin 5,000 UNIT/ML VIAL SQ SCH (04:48)
[2018-11-01 07:01] VITALS: BP 120/83
[2018-11-01] MEDS: Folic Acid 1 MG TABLET PO SCH (09:59)
[2018-11-01] MEDS: Levofloxacin 750 MG/150 ML 750 MG/150 ML BAG IVPB SCH (09:59)
[2018-11-01] MEDS: Thiamine (B-1) 100 MG TABLET PO SCH (10:00)
[2018-11-01] MEDS: Vitamin B Complex/Vit C/Vit E 1 EACH TABLET PO SCH (10:00)
[2018-11-01] MEDS ORDERED: Fluconazole 100 MG TABLET PO ONE (10:01)
--- NOTE | 2018-11-01 10:50 | Discharge Summary ---
Orders not resulted at time of discharge: Pending orders 10/28/18 21:55 Culture,Blood [BC] Stat 10/29/18 03:05 Culture,Sputum with Gram Stain [RM] Stat 10/30/18 06:00 ECG 12 lead ECG [ECG] AM 0600 Date of Encounter: 11/01/18 Time of Encounter: 10:47 - Discharge Diagnosis (1) Alcohol withdrawal Priority: Primary Status: Acute Qualifiers: Complication of substance-induced condition: uncomplicated Qualified Code(s): F10.230 - Alcohol dependence with withdrawal, uncomplicated (2) Multifocal pneumonia Priority: Primary Status: Acute (3) Chest pain Priority: Primary Status: Resolved Qualifiers: Chest pain type: other chest pain Qualified Code(s): R07.89 - Other chest pain; R07.8 - Other chest pain (4) Alcoholic fatty liver Priority: Secondary Status: Chronic Hospital course: Ms. Garvey is a 33 year old female who has a PMH of alcohol abuse, alcoholic hepatitis, HTN, who presented to the ER tonight with complaints of cough, shortness of breath, weakness, abdominal pain, and withdrawal from alcohol. She had CT imaging of her chest and abdomen in the ER, which found patient to have evidence of multifocal pneumonia and fatty liver infiltration. Because of her recent treatment for pneumonia, which she failed, and current complaints, she was admitted to hospitalist service. She was put on broad spectrum abx and de- escalated eventually to levaquin. Was put on CIWA and needed a precedex drip. Did well after that. She was discharged on 11/01/2018 with 4 more days of levaquin to take at home. - Time Spent with Patient Total time spent providing and/or coordinating discharge services: Time spent: Greater than 30 minutes - Discharge Medications Prescriptions: New levoFLOXacin [Levaquin] 750 mg PO DAILY 4 Days #4 tablet Continued Montelukast [Singulair] 10 mg PO DAILY PRN PRN Reason: Allergy Symptoms Cetirizine HCl [24Hour Allergy] 10 mg PO DAILY PRN PRN Reason: Allergy Symptoms Potassium Chloride [Klor-Con] 20 meq PO BID Albuterol Sulfate [Ventolin Hfa] 2 puff IH Q6H PRN PRN Reason: Shortness Of Breath Fluticasone Propionate Nasal [Flonase] 1 spray NS DAILY PRN PRN Reason: Allergy Symptoms Metoprolol [Lopressor] 12.5 mg PO BID tablet Acetaminophen [Tylenol] 325 - 650 mg PO DAILY PRN PRN Reason: Pain Home Medications: Montelukast [Singulair] 10 mg PO DAILY PRN 08/26/18 [History] Albuterol Sulfate [Ventolin Hfa] 2 puff IH Q6H PRN 09/01/18 [History] Cetirizine HCl [24Hour Allergy] 10 mg PO DAILY PRN 09/01/18 [History] Fluticasone Propionate Nasal [Flonase] 1 spray NS DAILY PRN 09/01/18 [History] Potassium Chloride [Klor-Con] 20 meq PO BID 09/01/18 [History] Metoprolol [Lopressor] 12.5 mg PO BID tablet 10/13/18 [Rx] Acetaminophen [Tylenol] 325 - 650 mg PO DAILY PRN 10/30/18 [History] levoFLOXacin [Levaquin] 750 mg PO DAILY 4 Days #4 tablet 11/01/18 [Rx] Allergies/Adverse Reactions: Allergy/AdvReac Type Severity Reaction Status Date / Time hydromorphone [From Dilaudid] AdvReac Hallucinati Verified 10/30/18 12:17 ng Date of admission: 10/29/18 03:05 Primary care physician: PCP NONE Consults: 10/29/18 08:53 Consult to Invasive Line Access Team [CONS] Routine Reason for Consult: poor vascular access, has one U/S guided peripheral from ER. multiple (4) IV meds due at this time incompatible Line Type: EPIV 10/29/18 09:12 Consult to Nurse Navigator [CONS] Routine Comment: pneumonia 10/29/18 16:45 Consult to Broach Operator [CONS] Routine Reason for SW Consult: Hx alcohol abuse - please provide resources - Constitutional Vitals: Temp Pulse Resp BP Pulse Ox 98.5 F 68 16 120/83 98 11/01/18 07:00 11/01/18 07:00 11/01/18 07:00 11/01/18 07:00 11/01/18 07:00 General appearance: Present: A&O X 3, no acute distress Exam: GEN: NAD CVS: RRR. S1, S2, No m/r/g RESP: CTAB ABD: Soft, NT, ND, +BS EXT: No edema. 2+ DP. No rashes NEURO: Nonfocal - Patient Status Disposition: Home, Self-Care Condition: Fair Overall status at discharge: patient is progressing back to baseline - Discharge Instructions Follow Up With: Sherin Daley CNP [Advanced Practice Nurse] - 11/17/18 3:15 pm (Vero Ryan is no longer with this Doctor's office) - Diet and Activity Activity: increase activity as tolerated Diet: regular diet
== END 2018-11-01 13:05 | disposition home or self-care (01) | DRG 139 ==
LOC: EMEROOARM 16:15 → 3ANU 16:15 → SUATTDRO 10-29 03:05 → 3ANU 10-30 07:58 → 2NNU 10-30 10:27
PROVIDERS: ADMIT Family Medicine; ATTEND Internal Medicine

== ENCOUNTER 2018-11-15 09:21 | Inpatient (IN) ==
[2018-11-15] MEDS ORDERED: Pantoprazole 40 MG VIAL IVP ONE (09:39)
[2018-11-15] MEDS ORDERED: Folic Acid 1 MG in D5% in Water 50 ML IVPB ONE (09:39)
[2018-11-15] MEDS ORDERED: Thiamine (B-1) 100 MG in D5% in Water 50 ML IVPB ONE (09:39)
[2018-11-15] MEDS ORDERED: 0.9 % Sodium Chloride 1,000 ML IVC ONE (09:39)
[2018-11-15 09:51] LABS: White Blood Count 6.4 K/mcL (4.3-11.1)
[2018-11-15 09:52] LABS: Basophils % 0.5 %; Eosinophils # 0.1 K/mcL (0.0-0.6); Eosinophils % 1.6 %; Hematocrit 38.8 % (35.3-44.9); Hemoglobin 13.5 g/dL (11.5-15.4); Immature Granulocytes % 0.2 % (0-4); Lymphocytes # 3.5 K/mcL (0.6-4.6); Lymphocytes % 54.6 %; Mean Corpuscular HGB Conc 34.8 g/dL (31.6-35.5); Mean Corpuscular Hemoglobin 32.2 pg (28.0-33.3); Mean Corpuscular Volume 92.6 fL (83.0-100.0); Mean Platelet Volume 9.9 fL (9.4-12.4); Monocytes # 0.5 K/mcL (0.0-1.3); Monocytes % 8.5 %; Neutrophils # 2.2 K/mcL (1.6-8.9); Platelet Count 147 K/mcL (140-400); Red Blood Count 4.19 M/mcL (3.82-4.97); Segmented Neutrophils % 34.6 %
--- NOTE | 2018-11-15 09:52 | Emergency Department Note ---
Disposition Clinical Impression: Suicidal ideation, Hyperbilirubinemia Chest pain Qualifiers: Chest pain type: unspecified Qualified Code(s): R07.9 - Chest pain, unspecified Alcohol dependence Qualifiers: Substance use status: unspecified alcohol-induced disorder Qualified Code(s): F10.29 - Alcohol dependence with unspecified alcohol-induced disorder Alcohol intoxication Qualifiers: Complication of substance-induced condition: uncomplicated Qualified Code(s): F10.920 - Alcohol use, unspecified with intoxication, uncomplicated Disposition: Admitted As Inpatient Condition: Good Time of Disposition: 11:47 General Adult HPI - General Chief complaint: ED Chest Pain Stated complaint: CP/SI Time Seen by Provider: 11/15/18 09:24 Source: patient, EMS Mode of arrival: EMS Limitations: no limitations Nursing Notes Reviewed: Yes Vital Signs Reviewed: Yes - History of Present Illness HPI Narrative: 31-year-old female history of liver cirrhosis, alcoholism, hypertension presents emergency department via EMS for multiple complaints. Per EMS they are quite familiar with her states the initial call was for chest pain and nausea and vomiting. The patient admits to drinking over a liter of whiskey over the last 24 hours. She admits to chest pain that started at 5 o'clock this morning midsternal nonradiating nonexertional sharp pain. Nothing makes it better or worse. Denies any shortness of breath. She drinks alcohol out of depression and invoices concern for suicidal ideation. She then disclosed that she took up to 28 tablets of Tylenol PM around 1900. She has a long-standing history of alcoholism and was recently admitted for similar symptoms. She denies hematemesis, hemoptysis but does admit to bloody stools. She follows with gastroenterology Dr. Dye. Denies history of air sees. Denies any shortness of breath at this time. She denies a history of cardiac ischemic disease requiring stent placement are intervention. Pain Scale: 10 - Related Data Home Medications Medication Instructions Recorded Confirmed Montelukast [Singulair] 10 mg PO DAILY PRN 08/26/18 10/30/18 Albuterol Sulfate [Ventolin Hfa] 2 puff IH Q6H PRN 09/01/18 10/30/18 Cetirizine HCl [24Hour Allergy] 10 mg PO DAILY PRN 09/01/18 10/30/18 Fluticasone Propionate Nasal 1 spray NS DAILY PRN 09/01/18 10/30/18 [Flonase] Potassium Chloride [Klor-Con] 20 meq PO BID 09/01/18 11/15/18 Acetaminophen [Tylenol] 325 - 650 mg PO DAILY PRN 10/30/18 10/30/18 Previous Rx's Medication Instructions Recorded Metoprolol [Lopressor] 12.5 mg PO BID tablet 10/13/18 Allergies Allergy/AdvReac Type Severity Reaction Status Date / Time hydromorphone [From Dilaudid] AdvReac Hallucinati Verified 10/30/18 12:17 ng All systems ED: reviewed and negative except as stated. Review of Systems: As Per HPI Constitutional: Denies: fever ENT ED: Denies: congestion Cardiovascular: Reports: chest pain. Denies: palpitations Respiratory: Reports: dyspnea. Denies: hemoptysis Gastrointestinal: Reports: abdominal pain, nausea, vomiting, hematochezia. Denies: diarrhea, hematemesis Psychiatric: Reports: anxiety, depression, suicidal thoughts. Denies: homicidal thoughts Past Medical History - Past Medical History Attestation: Yes The following information was validated with the patient. Source: patient Medical history: Reports: hepatitis, hypertension, kidney stones, liver disease, renal disease, seizures, other Surgical history: Reports: cholecystectomy Psychiatric history: Reports: anxiety [employer] history: Reports: bilateral tubal ligation, other - Social History Smoking Status: Never smoker Smokeless Tobacco Status: No Alcohol use: Reports: heavy, recent Drug use: Reports: none Physical Exam - General Limitations: no limitations General appearance: alert, anxious, in distress, other (emotional) - Head Head exam: atraumatic, normocephalic, normal inspection - Eye Eye exam: Present: normal appearance, EOMI. Absent: scleral icterus - ENT ENT exam: normal exam, normal oropharynx, mucous membranes moist - Neck Neck exam: Present: normal inspection, full ROM, trachea midline - Chest Chest inspection: Present: normal inspection, symmetric chest wall rise - Respiratory Respiratory exam: Present: normal lung sounds bilaterally. Absent: respiratory distress, wheezes - Cardiovascular Cardiovascular exam: Present: regular rate, normal rhythm, normal heart sounds - Abdominal Exam Abdominal exam: Present: soft, Non-Tender, normal bowel sounds. Absent: tenderness, distention, guarding, rebound, rigidity - Rectal Exam Wine Pasteurizer present during exam: Yes Rectal exam: Present: normal inspection, normal rectal tone, heme (-) stool. Absent: bloody stool - Extremities Exam Extremities exam: Present: normal inspection, full ROM, normal capillary refill. Absent: tenderness, pedal edema, calf tenderness - Back Exam Back exam: Present: normal inspection, full ROM. Absent: tenderness - Neurological Exam Neurological exam: Present: alert, oriented X3, other (No slurring of speech) - Psychiatric Psychiatric exam: Present: depressed, anxious, suicidal ideation - Skin Skin exam: Present: warm, dry, intact, normal color. Absent: rash, cyanosis, diaphoresis Course Course Narrative: At this time she is quite emotional. We will perform a chest pain workup including toxicology labs given her admissions to Tylenol intake. Given her history of liver cirrhosis will also check LFTs and INR compared to her prior values. She will likely require admission and psychiatric evaluation - Reevaluation(s) Reevaluation #1: Alcohol 420. She does have a mild elevation in her bilirubin which is close to her prior. Her labs are otherwise unremarkable. There is no stool on the sample but it was sent out for occult blood. At this time given her symptoms she will require admission and then psychiatric evaluation as she is too intoxicated to be evaluated. She is agreeable to this plan. CT scan spending at this time and she will be admitted. Reevaluation #2: After discussion with poison control was recommended for her to be treated for possible acetaminophen overdose. She will be initiated on the antidote. She will also require admission for her history of alcohol withdrawal in her alcohol level of 420. Given her initial presentation for chest pain should also be evaluated for that. She will be placed on CIWA. At this time she is not agitated. A pink slip has been signed and on the chart. Review of her CT scan shows some possible colitis. She does not have a white count denies any fevers however she has intoxicated at this time. We will defer antibiotics at this time. May consider CT scan with IV contrast if needed. - Consultations Consultation #1: Called POISON CONTROL, discussed case regarding history of cirrhosis and presumed APAP overdose. Despite negative or undetectable APAP greater than 14 hours given the change in AST/ALT and the known ETOH level of 420. Pathway t reatment will be faxed for our reference, will start 150 mg/kg IV NAC at this time. Time: 10:45 Consultation #2: Spoke with on-call hospitalist kleber Campo to admit for alcohol intoxication, suicide attempts, suicidal ideation, hyperbilirubinemia, history of alcohol withdrawal, and chest pain. No further orders at this time Vital Signs Temperature 98.6 F 11/15/18 09:26 Pulse Rate 96 11/15/18 09:26 Respiratory Rate 18 11/15/18 09:26 Blood Pressure 143/103 11/15/18 09:26 O2 Sat by Pulse Oximetry 96 11/15/18 09:26 Temperature 98.5 F 11/15/18 12:49 Pulse Rate 100 11/15/18 12:49 Respiratory Rate 16 11/15/18 12:49 Blood Pressure 137/90 11/15/18 12:49 O2 Sat by Pulse Oximetry 95 11/15/18 12:49 Oxygen Delivery Oxygen Delivery Room Air Medical Decision Making - MDM Narrative Medical decision making narrative: Patient was discussed with my attending physician who agrees with ED management and final disposition. They independently evaluated the patient. Please refer to their attestation to this encounter for additional information. This note was generated by [employer] voice recognition software and as a result grammatical or spelling errors may occur using this program. - Medical Records Medical records reviewed: Yes I reviewed the patient's medical records. - Lab Data Lab results reviewed: Yes I reviewed the patient's lab results. Result diagrams: 11/15/18 09:40 11/15/18 12:30 Lab Results 11/15/18 11/15/18 11/15/18 Range/Units 09:40 09:40 09:40 WBC 6.4 (4.3-11.1) K/mcL RBC 4.19 (3.82-4.97) M/mcL Hgb 13.5 (11.5-15.4) g/dL Hct 38.8 (35.3-44.9) % MCV 92.6 (83.0-100.0) fL MCH 32.2 (28.0-33.3) pg MCHC 34.8 (31.6-35.5) g/dL RDW 13.0 (11.5-14.5) % Plt Count 147 (140-400) K/mcL MPV 9.9 (9.4-12.4) fL Immature Gran % 0.2 (0-4) % Seg Neutrophils % 34.6 % Lymphocytes % 54.6 % Monocytes % 8.5 % Eosinophils % 1.6 % Basophils % 0.5 % Neutrophils # 2.2 (1.6-8.9) K/mcL Lymphocytes # 3.5 (0.6-4.6) K/mcL Monocytes # 0.5 (0.0-1.3) K/mcL Eosinophils # 0.1 (0.0-0.6) K/mcL Basophils # 0.0 (0.0-0.2) K/mcL PT 13.3 H (9.4-12.1) Seconds INR 1.2 APTT 34.1 (26.0-36.0) Seconds Sodium 144 (136-145) mEq/L Potassium 3.4 L (3.5-5.1) mEq/L Chloride 108 H (98-107) mEq/L Carbon Dioxide 20 L (23-29) mEq/L BUN 8 (6-20) mg/dL Creatinine 0.35 L (0.60-1.20) mg/dL Est GFR ( Amer) > 60 (> 60) Est GFR (Non-Af Amer) > 60 (> 60) BUN/Creatinine Ratio 23 (6-26) Glucose 102 (70-105) mg/dL Calculated Osmolality 297 (280-300) Calcium 8.9 (8.6-10.3) mg/dL Total Bilirubin 1.5 H (0.3-1.0) mg/dL Direct Bilirubin 0.5 H (0.0-0.2) mg/dL Indirect Bilirubin 1.0 (0.0-1.2) mg/dL AST 138 H (13-39) Units/L ALT 38 (7-52) Units/L Alkaline Phosphatase 92 (34-104) Units/L Troponin I < 0.03 (< 0.04) ng/mL Serum Total Protein 7.4 (6.4-8.9) g/dL Albumin 4.4 (3.5-5.7) g/dL Globulin 3.0 (2.4-3.5) g/dL Albumin/Globulin Ratio 1.5 (1.1-2.2) Lipase 7 L (11-82) Units/L Urine Color (Yellow) Urine Clarity (Clear) Urine pH (5.0-8.0) pH Units Ur Specific Sacul (1.010-1.025) Urine Protein (Neg-Trace) mg/dL Urine Glucose (UA) (Normal) mg/dL Urine Ketones (Negative) mg/dL Urine Blood (Negative) Urine Nitrite (Negative) Urine Bilirubin (Negative) Urine Urobilinogen (Normal) mg/dL Ur Leukocyte Esterase (Negative) Urine Microscopic RBC (0-3) per hpf Urine Microscopic WBC (0-3) per hpf Urine Bacteria (None-Few) per hpf Ur Culture Indicated? (NO) Urine Test (Negative) Stool Occult Bld Scrn (Negative) Salicylates < 2.5 L (15.0-30.0) mg/dL Urine Opiates Screen (Vrlepp=914) ng/mL Acetaminophen < 10 L (10-20) mcg/mL Ur Barbiturates Screen (Tdrwnq=377) ng/mL Ur Phencyclidine Scrn (Cutoff=25) ng/mL Ur Amphetamines Screen (Szjcrp=6933) ng/mL U Benzodiazepines Scrn (Azespa=182) ng/mL Urine Cocaine Screen (Cutoff= 300) ng/mL U Marijuana (THC) Screen (Cutoff = 50) ng/mL Ur Drug Screen Interp Ethyl Alcohol 420 H (Less than 10) mg/dL 11/15/18 11/15/18 11/15/18 Range/Units 09:50 09:50 09:50 WBC (4.3-11.1) K/mcL RBC (3.82-4.97) M/mcL Hgb (11.5-15.4) g/dL Hct (35.3-44.9) % MCV (83.0-100.0) fL MCH (28.0-33.3) pg MCHC (31.6-35.5) g/dL RDW (11.5-14.5) % Plt Count (140-400) K/mcL MPV (9.4-12.4) fL Immature Gran % (0-4) % Seg Neutrophils % % Lymphocytes % % Monocytes % % Eosinophils % % Basophils % % Neutrophils # (1.6-8.9) K/mcL Lymphocytes # (0.6-4.6) K/mcL Monocytes # (0.0-1.3) K/mcL Eosinophils # (0.0-0.6) K/mcL Basophils # (0.0-0.2) K/mcL PT (9.4-12.1) Seconds INR APTT (26.0-36.0) Seconds Sodium (136-145) mEq/L Potassium (3.5-5.1) mEq/L Chloride (98-107) mEq/L Carbon Dioxide (23-29) mEq/L BUN (6-20) mg/dL Creatinine (0.60-1.20) mg/dL Est GFR ( Amer) (> 60) Est GFR (Non-Af Amer) (> 60) BUN/Creatinine Ratio (6-26) Glucose (70-105) mg/dL Calculated Osmolality (280-300) Calcium (8.6-10.3) mg/dL Total Bilirubin (0.3-1.0) mg/dL Direct Bilirubin (0.0-0.2) mg/dL Indirect Bilirubin (0.0-1.2) mg/dL AST (13-39) Units/L ALT (7-52) Units/L Alkaline Phosphatase (34-104) Units/L Troponin I (< 0.04) ng/mL Serum Total Protein (6.4-8.9) g/dL Albumin (3.5-5.7) g/dL Globulin (2.4-3.5) g/dL Albumin/Globulin Ratio (1.1-2.2) Lipase (11-82) Units/L Urine Color Yellow (Yellow) Urine Clarity Clear (Clear) Urine pH 6.5 (5.0-8.0) pH Units Ur Specific Sacul 1.012 (1.010-1.025) Urine Protein Negative (Neg-Trace) mg/dL Urine Glucose (UA) Normal (Normal) mg/dL Urine Ketones Negative (Negative) mg/dL Urine Blood Negative (Negative) Urine Nitrite Negative (Negative) Urine Bilirubin Negative (Negative) Urine Urobilinogen Normal (Normal) mg/dL Ur Leukocyte Esterase Small H (Negative) Urine Microscopic RBC 0-3 (0-3) per hpf Urine Microscopic WBC 0-3 (0-3) per hpf Urine Bacteria Few (None-Few) per hpf Ur Culture Indicated? YES A (NO) Urine Test Negative (Negative) Stool Occult Bld Scrn (Negative) Salicylates (15.0-30.0) mg/dL Urine Opiates Screen Negative (Bemsgp=930) ng/mL Acetaminophen (10-20) mcg/mL Ur Barbiturates Screen Negative (Oazruw=349) ng/mL Ur Phencyclidine Scrn Negative (Cutoff=25) ng/mL Ur Amphetamines Screen Negative (Iefikw=3961) ng/mL U Benzodiazepines Scrn Positive H (Hkdlvi=351) ng/mL Urine Cocaine Screen Negative (Cutoff= 300) ng/mL U Marijuana (THC) Screen Negative (Cutoff = 50) ng/mL Ur Drug Screen Interp See Below Ethyl Alcohol (Less than 10) mg/dL 11/15/18 Range/Units 10:20 WBC (4.3-11.1) K/mcL RBC (3.82-4.97) M/mcL Hgb (11.5-15.4) g/dL Hct (35.3-44.9) % MCV (83.0-100.0) fL MCH (28.0-33.3) pg MCHC (31.6-35.5) g/dL RDW (11.5-14.5) % Plt Count (140-400) K/mcL MPV (9.4-12.4) fL Immature Gran % (0-4) % Seg Neutrophils % % Lymphocytes % % Monocytes % % Eosinophils % % Basophils % % Neutrophils # (1.6-8.9) K/mcL Lymphocytes # (0.6-4.6) K/mcL Monocytes # (0.0-1.3) K/mcL Eosinophils # (0.0-0.6) K/mcL Basophils # (0.0-0.2) K/mcL PT (9.4-12.1) Seconds INR APTT (26.0-36.0) Seconds Sodium (136-145) mEq/L Potassium (3.5-5.1) mEq/L Chloride (98-107) mEq/L Carbon Dioxide (23-29) mEq/L BUN (6-20) mg/dL Creatinine (0.60-1.20) mg/dL Est GFR ( Amer) (> 60) Est GFR (Non-Af Amer) (> 60) BUN/Creatinine Ratio (6-26) Glucose (70-105) mg/dL Calculated Osmolality (280-300) Calcium (8.6-10.3) mg/dL Total Bilirubin (0.3-1.0) mg/dL Direct Bilirubin (0.0-0.2) mg/dL Indirect Bilirubin (0.0-1.2) mg/dL AST (13-39) Units/L ALT (7-52) Units/L Alkaline Phosphatase (34-104) Units/L Troponin I (< 0.04) ng/mL Serum Total Protein (6.4-8.9) g/dL Albumin (3.5-5.7) g/dL Globulin (2.4-3.5) g/dL Albumin/Globulin Ratio (1.1-2.2) Lipase (11-82) Units/L Urine Color (Yellow) Urine Clarity (Clear) Urine pH (5.0-8.0) pH Units Ur Specific Sacul (1.010-1.025) Urine Protein (Neg-Trace) mg/dL Urine Glucose (UA) (Normal) mg/dL Urine Ketones (Negative) mg/dL Urine Blood (Negative) Urine Nitrite (Negative) Urine Bilirubin (Negative) Urine Urobilinogen (Normal) mg/dL Ur Leukocyte Esterase (Negative) Urine Microscopic RBC (0-3) per hpf Urine Microscopic WBC (0-3) per hpf Urine Bacteria (None-Few) per hpf Ur Culture Indicated? (NO) Urine Test (Negative) Stool Occult Bld Scrn Negative (Negative) Salicylates (15.0-30.0) mg/dL Urine Opiates Screen (Gmyypx=555) ng/mL Acetaminophen (10-20) mcg/mL Ur Barbiturates Screen (Ypisvx=592) ng/mL Ur Phencyclidine Scrn (Cutoff=25) ng/mL Ur Amphetamines Screen (Tjygio=9544) ng/mL U Benzodiazepines Scrn (Vqieta=807) ng/mL Urine Cocaine Screen (Cutoff= 300) ng/mL U Marijuana (THC) Screen (Cutoff = 50) ng/mL Ur Drug Screen Interp Ethyl Alcohol (Less than 10) mg/dL - Radiology Data Radiology results reviewed: Yes I reviewed the patient's radiology results. Chest X-Ray 11/15/18 09:33 IMPRESSION: 1. No acute cardiopulmonary disease. D/ / Elizabeth Beltrán MD / Elizabeth Beltrán MD Interpreting Provider: Elizabeth Beltrán MD Abdomen/Pelvis CT 11/15/18 09:34 IMPRESSION: 1. Wall thickening ascending colon can be seen with colitis, not present on prior exam 10/28/2018. Ischemic, infectious and inflammatory etiologies are considerations. Suboptimally evaluated without IV contrast. 2. Hepatic steatosis and mild hepatomegaly. Note that the spleen is not appear enlarged to me on this exam. 3. Status post cholecystectomy and partial gastrectomy. D/ / Anderson Serna / Anderson Serna Interpreting Provider: Anderson Serna - EKG Data EKG #1 EKG attestation: Yes I reviewed and interpreted this EKG. EKG results narrative: EKG performed 930 normal sinus rhythm 99 beats per minute, normal axis, good R wave progression, no ST elevation or depression, QTC 498. Compared to prior EKG performed 10/29/2017 which shows similar consistent findings with the QTC of 477. No acute ischemic changes. Attestation Statement - Attestation Attestation: Patient was seen with resident physician. I reviewed the history, physical, assessment and plan, and agree with the findings. I also personally evaluated this patient and had [id number] time with this patient. 33-year-old female presents emergency Department with a variety of complaints. Patient states that she is drunk, she wants to , she is depressed, she has chest pain which started sometime last night. The left side of her chest as a pressure-like sensation. She claims she has a heart issue. She says everything hurts including her abdomen. She has had nausea and vomiting. She has had blood in her stool. She also says she took approximately 28 Tylenol PM last night again because she wanted to . She also says that she drank approximately a gallon of whiskey through the course of the last 24 hours. Review of systems as above remainder negative. Physical exam vital signs were stable. ENT is unremarkable. Heart regular rhythm and rate. Lungs clear. Abdomen soft diffuse tenderness without guarding rigidity no masses. Extremities unremarkable. Neurologically alert moves all extremities no focal deficits. Skin no rashes. Psych patient is very irritable, agitated, and somewhat ill tempered. ED course. We will do a full psychiatric workup and toxicology screen. Additionally we will get a CT scan the abdomen. We will also treat the patient's nausea and vomiting. Likely disposition is going to be admission to the hospital for chest pain rule out and monitoring liver function tests and Tylenol levels. Once as completely they can evaluate with psychiatry. Hemodynamically patient remained stable in the emergency department. We contacted poison control who did recommend treatment with n acetylcysteine for the possible Tylenol overdose. Patient's blood alcohol was very elevated which precluded her from having a psychiatric evaluation while she was in the emergency department. With the needed treatment for the potential Tylenol overdose plus her chest pain, admission was her only option. We spoke with the hospitalist and did arrange for admission to the hospital service. Patient was placed on a 24-hour involuntary admission status secondary to suicidal ideation. Agree with resident physician assessment and plan. Procedure note. I reviewed the patient's EKG as well as the resident physician interpretation and I agree with the findings.
[2018-11-15 10:02] LABS: INR 1.2; Prothrombin Time 13.3 Seconds (9.4-12.1)
[2018-11-15 10:05] LABS: Activated Partial Thrombo Time 34.1 Seconds (26.0-36.0)
[2018-11-15 10:17] LABS: Acetaminophen < 10 mcg/mL (10-20); Alanine Aminotransferase 38 Units/L (7-52); Albumin 4.4 g/dL (3.5-5.7); Albumin/Globulin Ratio 1.5 (1.1-2.2); Alkaline Phosphatase 92 Units/L (34-104); Aspartate Amino Transferase 138 Units/L (13-39); BUN/Creatinine Ratio 23 (6-26); Bilirubin,Direct 0.5 mg/dL (0.0-0.2); Bilirubin,Total 1.5 mg/dL (0.3-1.0); Blood Urea Nitrogen 8 mg/dL (6-20); Calcium 8.9 mg/dL (8.6-10.3); Carbon Dioxide 20 mEq/L (23-29); Chloride 108 mEq/L (98-107); Ethanol 420 mg/dL (Less than 10); Glucose 102 mg/dL (70-105); Lipase 7 Units/L (11-82); Osmolality,Calculated 297 (280-300); Potassium 3.4 mEq/L (3.5-5.1); Salicylate < 2.5 mg/dL (15.0-30.0); Sodium 144 mEq/L (136-145); Total Protein 7.4 g/dL (6.4-8.9); Troponin I < 0.03 ng/mL (< 0.04); eGFR For African Americans > 60 (> 60); eGFR For Non-African Americans > 60 (> 60)
[2018-11-15 10:27] LABS: Bilirubin,Urine Negative (Negative); Blood,Urine Negative (Negative); Clarity,Urine Clear (Clear); Color,Urine Yellow (Yellow); Glucose,Urine (UA) Normal (Normal); Ketones,Urine Negative (Negative); Leukocyte Esterase,Urine Small (Negative); Nitrite,Urine Negative (Negative); PH,Urine 6.5 pH Units (5.0-8.0); Protein,Urine Negative (Neg-Trace); Specific Gravity,Urine 1.012 (1.010-1.025); Urobilinogen,Urine Normal (Normal)
[2018-11-15] MEDS ORDERED: Aspirin 325 MG TABLET PO ONE (10:38)
[2018-11-15 10:47] LABS: Bacteria,Urine Few per hpf (None-Few); RBC,Urine 0-3 per hpf (0-3); WBC,Urine 0-3 per hpf (0-3)
[2018-11-15 11:04] LABS: Amphetamine Screen,Urine Negative ng/mL (Cutoff=1000); Barbiturate Screen,Urine Negative ng/mL (Cutoff=200); Benzodiazepines Screen,Urine Positive ng/mL (Cutoff=300); Cannabinoid Screen,Urine Negative ng/mL (Cutoff = 50); Cocaine Screen,Urine Negative ng/mL (Cutoff= 300); Opiate Screen,Urine Negative ng/mL (Cutoff=300); Phencyclidine Screen,Urine Negative ng/mL (Cutoff=25)
[2018-11-15] MEDS ORDERED: *HR* LORazepam 2 MG/ML VIAL IVP PRN ×2 (11:47→12:01)
--- NOTE | 2018-11-15 11:50 | Internal Med History&Physical ---
Date of Encounter: 11/15/18 Time of Encounter: 11:50 Internal Medicine - H&P: HPI Chief complaint: Nausea ,vomiting and chest pain History of present illness: Ms. Garvey is a 33 year old female with past medical history of alcoholism, liver cirrhosis, hypertension: Presented to the ER with chest pain associated with nausea and vomiting, the patient stated that she consumed a later of whiskey and took 28 tablets of acetaminophen in a attempt to commit suicide. The patient described her chest pain as intermittent sharp-like midsternal chest pain with no radiation and no alleviating factors or exacerbating factors. The patient denies shortness of breath, palpitation, paroxysmal nocturnal dyspnea, orthopnea, progressive worsening of lower extremity edema. The patient was evaluated by the ER staff and her EKG revealed no significant ST T wave changes, her troponin first set was with no significant abnormalities. Her acetaminophen level was less than 10 however ER staff spoke with poison control and there was a concern that giving the patient clinical presentation and her liver pathology, decision was made to treat the patient with Actodote. The patient was pink slipped by the ER staff and was admitted to the hospital for further evaluation and management. Past Med Surg Social Fam HX - Past Medical History Medical history: hepatitis, hypertension, kidney stones, liver disease, renal disease, seizures, other Additional medical history: nosebleeds. CDiff. Chest pain. high ammonia. chronic cough. Last reported seizure unknown Psychiatric history: anxiety - Past Surgical History Surgical History: cholecystectomy Additional surgical history: gastric sleeve 2014. D&C x 2. UTERINE ABLATION. tubal ligation - Social History Smoking Status: Never smoker Smokeless Tobacco Status: No Alcohol use: heavy, recent Drug use: none - Family History Mother Living Status: Still Living Hx Family Cardiac Disorders: Yes (MIx2, HTN) Hx Family GI Disorders: No Father Living Status: Still Living Hx Family Cardiac Disorders: Yes (MIx2) Hx Family GI Disorders: No Internal Medicine - H&P: Meds Montelukast [Singulair] 10 mg PO DAILY PRN 08/26/18 [History] Albuterol Sulfate [Ventolin Hfa] 2 puff IH Q6H PRN 09/01/18 [History] Cetirizine HCl [24Hour Allergy] 10 mg PO DAILY PRN 09/01/18 [History] Fluticasone Propionate Nasal [Flonase] 1 spray NS DAILY PRN 09/01/18 [History] Potassium Chloride [Klor-Con] 20 meq PO BID 09/01/18 [History] Metoprolol [Lopressor] 12.5 mg PO BID tablet 10/13/18 [Rx] Acetaminophen [Tylenol] 325 - 650 mg PO DAILY PRN 10/30/18 [History] Allergy/AdvReac Type Severity Reaction Status Date / Time hydromorphone [From Dilaudid] AdvReac Hallucinati Verified 10/30/18 12:17 ng All Systems PM: A 10-system review of systems was performed and is negative for pertinent findings except as documented above in the HPI. - Constitutional Vitals: Temp Pulse Resp BP Pulse Ox 98.6 F 94 16 145/102 98 11/15/18 09:26 11/15/18 10:50 11/15/18 10:50 11/15/18 11:44 11/15/18 10:50 General appearance: Present: A&O X 3 Exam: ` - Head Head exam: Present: atraumatic, normocephalic - Neck Neck exam general surgery: Present: supple, trachea midline. Absent: lymphadenopathy - Respiratory Respiratory exam: Present: CTAB. Absent: accessory muscle use, rales, rhonchi, wheezes - Cardiovascular Cardiovascular exam: Present: RRR, +S1, +S2. Absent: diastolic murmur, gallop, rubs, systolic murmur - Extremities Exam Extremities exam: Present: warm, radial pulses palpable and symmetrical. Absent: calf tenderness, cyanotic, pedal edema Internal Med - H&P Results - Labs CBC & Chem 7: 11/15/18 09:40 11/15/18 12:30 Labs: Short CBC 11/15/18 Range/Units 09:40 WBC 6.4 (4.3-11.1) K/mcL Hgb 13.5 (11.5-15.4) g/dL Hct 38.8 (35.3-44.9) % Plt Count 147 (140-400) K/mcL Neutrophils # 2.2 (1.6-8.9) K/mcL BMP 11/15/18 09:40 Sodium 144 Potassium 3.4 L Chloride 108 H Carbon Dioxide 20 L BUN 8 Creatinine 0.35 L Glucose 102 Calcium 8.9 Cardiac Enzymes 11/15/18 Range/Units 09:40 Troponin I < 0.03 (< 0.04) ng/mL Liver Function 11/15/18 Range/Units 09:40 Total Bilirubin 1.5 H (0.3-1.0) mg/dL Direct Bilirubin 0.5 H (0.0-0.2) mg/dL AST 138 H (13-39) Units/L ALT 38 (7-52) Units/L Alkaline Phosphatase 92 (34-104) Units/L Albumin 4.4 (3.5-5.7) g/dL Urine 11/15/18 Range/Units 09:50 Urine Color Yellow (Yellow) Urine Clarity Clear (Clear) Urine pH 6.5 (5.0-8.0) pH Units Ur Specific [place] 1.012 (1.010-1.025) Urine Protein Negative (Neg-Trace) mg/dL Urine Glucose (UA) Normal (Normal) mg/dL - Impressions ITS Impressions Chest X-Ray 11/15/18 09:33 IMPRESSION: 1. No acute cardiopulmonary disease. D/ / Elizabeth Beltrán MD / Elizabeth Beltrán MD Interpreting Provider: Elizabeth Beltrán MD - Assessment and Plan (1) Alcohol intoxication Current Visit: Yes Status: Acute Assessment and plan: The patient drunk liter of whiskey, her alcohol level is above 400, will start the patient on CIWA protocol Qualifiers: Complication of substance-induced condition: uncomplicated Qualified Code(s): F10.920 - Alcohol use, unspecified with intoxication, uncomplicated (2) Hypokalemia Current Visit: No Status: Acute Assessment and plan: We will replace potassium and continue to monitor level, we will also obtain magnesium level (3) Suicidal ideation Current Visit: Yes Status: Acute Assessment and plan: The patient was pink slipped by the ER staff, we will consult psychology when medically cleared (4) Hepatic steatosis Current Visit: No Status: Acute Assessment and plan: The patient has history of chronic hepatic steatosis as evident on CT scan, her bilirubin level and liver enzymes around baseline (5) Acetaminophen overdose Current Visit: Yes Status: Acute Assessment and plan: The patient admitted to consuming more than 28 tablets of acetaminophen in an attempt to commit suicide . Her acetaminophen level was less than 10 however ER staff spoke with was poison control and there was a concern that giving the patient clinical presentation and her liver pathology, decision was made to treat the patient with Actodote. Qualifiers: Qualified Code(s): T39.1X1A - Poisoning by 4-Aminophenol derivatives, accidental (unintentional), initial encounter (6) Chest pain Current Visit: Yes Status: Acute Assessment and plan: A typical chest pain, cardiac enzymes first set was no significant abnormalities, EKG was no significant ST-T wave changes we will trend cardiac enzymes. Qualifiers: Chest pain type: unspecified Qualified Code(s): R07.9 - Chest pain, unspecified (7) DVT prophylaxis Current Visit: No Status: Acute Assessment and plan: The patient is ambulatory - Time Spent With Patient Total time spent is greater than 50% in coordination of care (as documented) at patient's floor/unit and/or counseling patient:
[2018-11-15] MEDS: D5 IVC ONE ×2 (11:58→13:28)
[2018-11-15] MEDS: ACETYLCYSTEINE IVC ONE ×2 (11:58→13:28)
[2018-11-15] MEDS: WATER IVC ONE ×2 (11:58→13:28)
[2018-11-15] MEDS ORDERED: WATER IVC ONE ×3 (12:00→17:00)
[2018-11-15] MEDS ORDERED: ACETYLCYSTEINE IVC ONE ×3 (12:00→17:00)
[2018-11-15] MEDS ORDERED: D5 IVC ONE ×3 (12:00→17:00)
[2018-11-15] MEDS ORDERED: Ondansetron 4 MG/2 ML VIAL IVP PRN (12:03)
[2018-11-15] MEDS ORDERED: Naloxone 0.4 MG/ML INJ IVP PRN (12:03)
[2018-11-15 13:00] LABS: Alanine Aminotransferase 35 Units/L (7-52); Albumin/Globulin Ratio 1.3 (1.1-2.2); Alkaline Phosphatase 84 Units/L (34-104); Aspartate Amino Transferase 124 Units/L (13-39); BUN/Creatinine Ratio 19 (6-26); Bilirubin,Total 1.4 mg/dL (0.3-1.0); Blood Urea Nitrogen 6 mg/dL (6-20); Calcium 8.3 mg/dL (8.6-10.3); Carbon Dioxide 18 mEq/L (23-29); Chloride 109 mEq/L (98-107); Glucose 93 mg/dL (70-105); Magnesium 1.6 mg/dL (1.6-2.6); Osmolality,Calculated 293 (280-300); Phosphorous 3.9 mg/dL (2.7-4.5); Potassium 3.6 mEq/L (3.5-5.1); Sodium 143 mEq/L (136-145); eGFR For African Americans > 60 (> 60); eGFR For Non-African Americans > 60 (> 60)
[2018-11-15] MEDS ORDERED: Pseudoephedrine Oral Soln 30 MG/5 ML UDC PO PRN (13:46)
[2018-11-15] MEDS: 0.9 % Sodium Chloride 1,000 ML IVC SCH ×2 (14:01→22:02)
[2018-11-15] MEDS: *HR* LORazepam 2 MG/ML VIAL IVP PRN ×4 (14:02→22:11)
[2018-11-15] MEDS ORDERED: Thiamine (B-1) 100 MG, Folic Acid 1 MG, MVI, adult with vitamin K 10 ML in 0.9 % Sodi... IVPB SCH (18:00)
[2018-11-16] MEDS: *HR* LORazepam 2 MG/ML VIAL IVP PRN ×2 (02:10→03:07)
[2018-11-16 05:47] LABS: Basophils % 0.4 %; Eosinophils % 0.9 %; Hematocrit 29.6 % (35.3-44.9); Hemoglobin 10.4 g/dL (11.5-15.4); Immature Platelets 3.7 % (1.1-6.1); Lymphocytes % 37.9 %; Mean Corpuscular HGB Conc 35.1 g/dL (31.6-35.5); Mean Corpuscular Hemoglobin 31.9 pg (28.0-33.3); Mean Corpuscular Volume 90.8 fL (83.0-100.0); Monocytes # 0.2 K/mcL (0.0-1.3); Monocytes % 8.5 %; Neutrophils # 1.2 K/mcL (1.6-8.9); Red Blood Count 3.26 M/mcL (3.82-4.97); Red Cell Distribution Width 12.6 % (11.5-14.5); Segmented Neutrophils % 52.3 %; White Blood Count 2.2 K/mcL (4.3-11.1)
[2018-11-16 05:52] LABS: INR 1.3; Prothrombin Time 14.5 Seconds (9.4-12.1)
[2018-11-16 05:54] LABS: Activated Partial Thrombo Time 31.5 Seconds (26.0-36.0); Lymphocytes # 0.8 K/mcL (0.6-4.6); Platelet Count 70 K/mcL (140-400)
[2018-11-16 06:07] LABS: Alanine Aminotransferase 26 Units/L (7-52); Albumin 3.6 g/dL (3.5-5.7); Albumin/Globulin Ratio 1.5 (1.1-2.2); Alkaline Phosphatase 62 Units/L (34-104); Aspartate Amino Transferase 66 Units/L (13-39); BUN/Creatinine Ratio 14 (6-26); Bilirubin,Total 3.8 mg/dL (0.3-1.0); Blood Urea Nitrogen 4 mg/dL (6-20); Calcium 7.7 mg/dL (8.6-10.3); Carbon Dioxide 20 mEq/L (23-29); Chloride 104 mEq/L (98-107); Cholesterol 151 mg/dL (< 200); Ethanol < 10 mg/dL (Less than 10); Globulin 2.4 g/dL (2.4-3.5); Glucose 101 mg/dL (70-105); HDL Cholesterol 75 mg/dL (40-59); LDL Cholesterol,Calculated 59 mg/dL (0-99); Magnesium 1.1 mg/dL (1.6-2.6); Osmolality,Calculated 279 (280-300); Phosphorous 2.9 mg/dL (2.7-4.5); Platelet Estimate Decreased (Normal); Sodium 136 mEq/L (136-145); Triglycerides 84 mg/dL (< 150); eGFR For African Americans > 60 (> 60); eGFR For Non-African Americans > 60 (> 60)
--- NOTE | 2018-11-16 06:11 | Event Note ---
Date of Encounter: 11/15/18 Time of Encounter: 21:49 Alerted by patient's nurse AIDAN Shell that patient was admitted for chest pain and suicidal ideation. Patient has been pink slipped due to taking 28 Tylenol PM and a liter of whiskey. Patient requested food at this time. Nurse instructed to keep patient nothing by mouth with ice chips only. Poison control to call in the a.m. for patients 08:30 AST and ALT levels. Pts. tox screen high for benzodiazepines. Alerted by pts. nurse at 05:55 patient was requesting something for agitation and anxiety. CIWA done at 02:10 scored 14 with 2 milligram Ativan given. Reassessment at 03:07 scored 10 and 1 mg Ativan given. Reassessment at 04:07 scored 7 and pt. was sleeping. Pt. now awake at 05:55 and shaking stating her head hurts. Next CIWA due at 07:07. D/t pts. high level of benzodiazepines on her tox screen, IVP Benadryl 25 mg given as pt. is already receiving consistent doses of more benzodiazepines from CIWA scale. Nurse instructed to continue monitoring the pt. very closely and alert myself or a.m. team of any adverse changes.
[2018-11-16] MEDS ORDERED: Thiamine (B-1) 100 MG TABLET PO SCH (09:00)
[2018-11-16] MEDS ORDERED: Vitamin B Complex/Vit C/Vit E 1 EACH TABLET PO SCH (09:00)
[2018-11-16] MEDS ORDERED: Folic Acid 1 MG TABLET PO SCH (09:00)
[2018-11-16 09:28] VITALS: BP 142/92
[2018-11-16 09:43] LABS: Alanine Aminotransferase 25 Units/L (7-52); Aspartate Amino Transferase 61 Units/L (13-39)
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
--- NOTE | 2018-11-16 13:39 | Discharge Summary ---
- NOTES TO OUTPATIENT PROVIDER Notes to Outpatient Provider: Admitted for substance induced psychosis, alcohol intoxication, tylenol overdose and multiple electrolyte abnormalities. LFTs have been stable and poison control recommended no indication for more acetylcesteine. Potassium and Magnessium were replaced. Patient was initially pink-slipped but seen by [facility] who did not recommend in-patient psych admission. She is clincally stable to be discharged home to Follow-up with own psychiatrist and PCP. Date of Encounter: 11/16/18 Time of Encounter: 13:38 - Discharge Diagnosis (1) DVT prophylaxis Priority: Primary Status: Resolved (2) Hepatic steatosis Priority: Secondary Status: Chronic (3) Suicidal ideation Priority: Primary Status: Resolved (4) Alcohol intoxication Priority: Primary Status: Resolved Qualifiers: Complication of substance-induced condition: uncomplicated Qualified Code(s): F10.920 - Alcohol use, unspecified with intoxication, uncomplicated (5) Hypokalemia Priority: Primary Status: Resolved (6) Chest pain Priority: Primary Status: Resolved Qualifiers: Chest pain type: unspecified Qualified Code(s): R07.9 - Chest pain, unspecified (7) Acetaminophen overdose Priority: Primary Status: Resolved Qualifiers: Qualified Code(s): T39.1X1A - Poisoning by 4-Aminophenol derivatives, accidental (unintentional), initial encounter Hospital course: Ms. Garvey is a 33 year old female with PMH of intermittent asthma and alcohol abuse Admitted for substance induced psychosis, alcohol intoxication, tylenol overdose and multiple electrolyte abnormalities. LFTs have been stable and poison control recommended no indication for more acetylcesteine. Potassium and Magnessium were replaced. Patient was initially pink-slipped but seen by [facility] who did not recommend in-patient psych admission. She is clincally stable to be discharged home to Follow-up with own psychiatrist and PCP. Discharge discussed with: patient, nurse - Time Spent with Patient Total time spent providing and/or coordinating discharge services: Time spent: Less than 30 minutes (25 mins spent on face to face encounter and documentation) - Discharge Medications Prescriptions: New Folic Acid 1 mg PO DAILY #30 tablet Vitamin B Complex/Vit C/Vit E [Stresstab] 1 each PO DAILY #30 tablet Thiamine (B-1) [Vitamin B-1] 100 mg PO DAILY #30 tablet Continued Montelukast [Singulair] 10 mg PO DAILY PRN PRN Reason: Allergy Symptoms Cetirizine HCl [24Hour Allergy] 10 mg PO DAILY PRN PRN Reason: Allergy Symptoms Potassium Chloride [Klor-Con] 20 meq PO BID Albuterol Sulfate [Ventolin Hfa] 2 puff IH Q6H PRN PRN Reason: Shortness Of Breath Fluticasone Propionate Nasal [Flonase] 1 spray NS DAILY PRN PRN Reason: Allergy Symptoms Metoprolol [Lopressor] 12.5 mg PO BID tablet Acetaminophen [Tylenol] 325 - 650 mg PO DAILY PRN PRN Reason: Pain Home Medications: Montelukast [Singulair] 10 mg PO DAILY PRN 08/26/18 [History] Albuterol Sulfate [Ventolin Hfa] 2 puff IH Q6H PRN 09/01/18 [History] Cetirizine HCl [24Hour Allergy] 10 mg PO DAILY PRN 09/01/18 [History] Fluticasone Propionate Nasal [Flonase] 1 spray NS DAILY PRN 09/01/18 [History] Potassium Chloride [Klor-Con] 20 meq PO BID 09/01/18 [History] Metoprolol [Lopressor] 12.5 mg PO BID tablet 10/13/18 [Rx] Acetaminophen [Tylenol] 325 - 650 mg PO DAILY PRN 10/30/18 [History] Folic Acid 1 mg PO DAILY #30 tablet 11/16/18 [Rx] Thiamine (B-1) [Vitamin B-1] 100 mg PO DAILY #30 tablet 11/16/18 [Rx] Vitamin B Complex/Vit C/Vit E [Stresstab] 1 each PO DAILY #30 tablet 11/16/18 [Rx] Allergies/Adverse Reactions: Allergy/AdvReac Type Severity Reaction Status Date / Time hydromorphone [From Dilaudid] AdvReac Hallucinati Verified 10/30/18 12:17 ng Date of admission: 11/15/18 12:10 Primary care physician: PCP NONE Consults: 11/16/18 10:20 Consult to Psychiatry [CONS] Routine Consulting Provider: Psychiatry Bibiana Reason consult: Sitter/1:1 Discharging clinician: Antony Beck Anticipated date of discharge: 11/16/18 - Constitutional Vitals: Temp Pulse Resp BP Pulse Ox 99.1 F 83 15 142/92 97 11/16/18 09:00 11/16/18 09:00 11/16/18 09:00 11/16/18 09:00 11/16/18 10:00 General appearance: Present: A&O X 3, no acute distress Exam: .. - Head Head exam: Present: atraumatic, normocephalic - Eye Eye exam: Present: PERRL, conjuntiva pink, sclera anicteric Pupils: Present: PERRL - Neck Neck exam general surgery: Present: supple, trachea midline. Absent: lymphadenopathy - Respiratory Respiratory exam: Present: CTAB. Absent: accessory muscle use, rales, rhonchi, wheezes - Cardiovascular Cardiovascular exam: Present: RRR, +S1, +S2. Absent: diastolic murmur, gallop, rubs, systolic murmur - GI/Abdominal GI/Abdominal exam: Present: normal bowel sounds, soft, no peritoneal signs. Absent: distended, tenderness - Extremities Exam Extremities exam: Present: warm, radial pulses palpable and symmetrical. Absent: calf tenderness, cyanotic, pedal edema - Neurological Exam Neurological exam: Present: CN II-XII intact, oriented X3, no focal deficits. Absent: pronater drift, facial droop, speech deficit - Skin Skin exam: Present: dry, intact - Patient Status Disposition: Home, Self-Care Condition: Fair Functional capacity at discharge: independent ambulation Overall status at discharge: patient is back to baseline - Discharge Instructions Follow Up With: NONE,PCP [Primary Care Provider] - - Diet and Activity Activity: resume usual activities as tolerated Diet: low fat, low cholesterol
--- NOTE | 2018-11-17 14:47 | Electrocardiograph Report ---
[address] [place], [place] [address] Test Date: 2018-11-15 Pat Name: Maria Lusia Garvey Department: [id number] Room: 3B41 Gender: F Store Clerk: : 1985 Requested By: Jonathan Conn Order Number: [id number] Reading MD: Danni Montemayor Measurements Intervals Graham Rate: 99 P: 44 CA: 150 QRS: 26 QRSD: 90 T: 16 QT: 388 QTc: 498 Interpretive Statements Sinus rhythm Electronically Signed On 11-17-2018 14:45:56 EDT by Danni Montemayor
[2018-11-18] MEDS ORDERED: Folic Acid 1 MG TABLET PO SCH (09:00)
[2018-11-18] MEDS ORDERED: Vitamin B Complex/Vit C/Vit E 1 EACH TABLET PO SCH (09:00)
[2018-11-18] MEDS ORDERED: Thiamine (B-1) 100 MG TABLET PO SCH (09:00)
== END 2018-11-16 15:34 | disposition home or self-care (01) | DRG 812 ==
LOC: EMEROOARM 09:21 → 3BNU 09:21 → SUATTDRO 12:10 → 3BNU 12:40
PROVIDERS: ADMIT Internal Medicine Nephrology; ATTEND Internal Medicine

== ENCOUNTER 2018-11-26 09:56 | Observation (INO) ==
[2018-11-26] MEDS ORDERED: *HR* FentaNYL (PF) 100 MCG/2 ML VIAL IVP ONE (10:07)
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
[2018-11-26] MEDS ORDERED: 0.9 % Sodium Chloride 1,000 ML IVC ONE (10:10)
[2018-11-26 10:28] LABS: Immature Granulocytes % 0.3 % (0-4); Red Cell Distribution Width 13.4 % (11.5-14.5)
[2018-11-26 10:30] LABS: Basophils % 0.3 %; Eosinophils % 0.8 %; Hemoglobin 12.2 g/dL (11.5-15.4); Immature Platelets 7.8 % (1.1-6.1); Lymphocytes # 0.9 K/mcL (0.6-4.6); Lymphocytes % 22.8 %; Mean Corpuscular HGB Conc 34.9 g/dL (31.6-35.5); Mean Corpuscular Hemoglobin 31.9 pg (28.0-33.3); Mean Corpuscular Volume 91.4 fL (83.0-100.0); Monocytes # 0.4 K/mcL (0.0-1.3); Monocytes % 9.4 %; Neutrophils # 2.5 K/mcL (1.6-8.9); Red Blood Count 3.83 M/mcL (3.82-4.97); Segmented Neutrophils % 66.4 %; White Blood Count 3.8 K/mcL (4.3-11.1)
[2018-11-26 10:34] LABS: INR 1.2; Prothrombin Time 13.1 Seconds (9.4-12.1)
[2018-11-26 10:49] LABS: Bilirubin,Urine Negative (Negative); Blood,Urine Trace (Negative); Color,Urine Dark Yellow (Yellow); Glucose,Urine (UA) Normal (Normal); Ketones,Urine Trace mg/dL (Negative); Leukocyte Esterase,Urine Negative (Negative); Nitrite,Urine Negative (Negative); PH,Urine 6.5 pH Units (5.0-8.0); Protein,Urine >=300 mg/dL (Neg-Trace); Specific Gravity,Urine 1.019 (1.010-1.025); Urobilinogen,Urine Normal (Normal)
[2018-11-26 10:52] LABS: Bacteria,Urine None Seen per hpf (None-Few); Hyaline Casts,Urine Moderate per lpf (None-Few); RBC,Urine 0-3 per hpf (0-3); Squamous Epithelial Cell,Urine Many per lpf (None-Few); WBC,Urine 50-100 per hpf (0-3)
[2018-11-26 10:53] LABS: BUN/Creatinine Ratio 14 (6-26); Blood Urea Nitrogen 5 mg/dL (6-20); Carbon Dioxide 20 mEq/L (23-29); Chloride 102 mEq/L (98-107); Potassium 2.9 mEq/L (3.5-5.1); Sodium 137 mEq/L (136-145); eGFR For African Americans > 60 (> 60)
[2018-11-26 10:54] LABS: Clarity,Urine Hazy (Clear)
[2018-11-26 10:54] LABS: Alanine Aminotransferase 56 Units/L (7-52); Albumin 4.4 g/dL (3.5-5.7); Albumin/Globulin Ratio 1.4 (1.1-2.2); Alkaline Phosphatase 90 Units/L (34-104); Aspartate Amino Transferase 227 Units/L (13-39); Bilirubin,Total 3.2 mg/dL (0.3-1.0); Calcium 9.3 mg/dL (8.6-10.3); Globulin 3.1 g/dL (2.4-3.5); Glucose 109 mg/dL (70-105); Lipase < 3 Units/L (11-82); Magnesium 1.5 mg/dL (1.6-2.6); Osmolality,Calculated 282 (280-300); Total Protein 7.5 g/dL (6.4-8.9); Troponin I < 0.03 ng/mL (< 0.04); eGFR For Non-African Americans > 60 (> 60)
[2018-11-26 11:02] LABS: Platelet Count 91 K/mcL (140-400)
[2018-11-26] MEDS ORDERED: *HR* LORazepam 2 MG/ML VIAL IVP ONE (11:03)
[2018-11-26] MEDS ORDERED: 0.9 % Sodium Chloride 1,000 ML ONE (11:35)
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
[2018-11-26] MEDS ORDERED: metroNIDAZOLE 500 MG TABLET PO ONE (12:34)
[2018-11-26] MEDS ORDERED: Azithromycin 250 MG TABLET PO ONE (12:35)
[2018-11-26] MEDS ORDERED: cefTRIAXone 1,000 MG in 0.9 % Sodium Chloride Mini Bag 100 ML IVPB ONE (12:35)
[2018-11-26 13:22] LABS: Acetaminophen < 10 mcg/mL (10-20); Salicylate < 2.5 mg/dL (15.0-30.0)
[2018-11-26 14:54] LABS: Amphetamine Screen,Urine Negative ng/mL (Cutoff=1000); Barbiturate Screen,Urine Negative ng/mL (Cutoff=200); Benzodiazepines Screen,Urine Positive ng/mL (Cutoff=200); Cannabinoid Screen,Urine Negative ng/mL (Cutoff = 50); Cocaine Screen,Urine Negative ng/mL (Cutoff= 300); Opiate Screen,Urine Negative ng/mL (Cutoff=300); Phencyclidine Screen,Urine Negative ng/mL (Cutoff=25)
[2018-11-26] MEDS ORDERED: Ibuprofen 400 MG TABLET PO PRN (15:01)
[2018-11-26] MEDS ORDERED: Naloxone 0.4 MG/ML INJ IVP PRN (15:01)
[2018-11-26] MEDS ORDERED: *HR* LORazepam 2 MG/ML VIAL IVP PRN ×3 (15:06→15:18)
[2018-11-26] MEDS ORDERED: Potassium Chloride Elixir 20 MEQ/15 ML UDC PO ONE (15:08)
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
[2018-11-26 15:23] LABS: Creatine Kinase 57 Units/L (30-223); Ethanol 72 mg/dL (Less than 10)
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
--- NOTE | 2018-11-26 16:35 | Electrocardiograph Report ---
[address] [address] Test Date: 2018-11-26 Pat Name: Maria Luisa Garvey Department: EXAM11 Room: 3B32 Gender: F Scan Coordinator: : 1985 Requested By: Rakan Chu Order Number: [id number] Reading MD: aMrcus Harry Measurements Intervals [place] Rate: 88 P: 55 WY: 143 QRS: 61 QRSD: 88 T: 55 QT: 455 QTc: 551 Interpretive Statements Sinus rhythm Prolonged QT interval Electronically Signed On 11-26-2018 16:33:46 EDT by Marcus Harry
[2018-11-26] MEDS: Thiamine (B-1) 100 MG, Folic Acid 1 MG, MVI, adult with vitamin K 10 ML in 0.9 % Sodi... IVPB SCH ×2 (16:45→18:41)
[2018-11-26] MEDS ORDERED: 0.9 % Sodium Chloride 500 ML ONE (17:06)
[2018-11-26 18:49] LABS: Hepatitis B Surface Antigen Nonreactive (Nonreactive)
[2018-11-26] MEDS: *HR* LORazepam 2 MG/ML VIAL IVP PRN ×2 (18:51→23:02)
[2018-11-26 19:18] LABS: HIV-1&2 Antibody & p24 Ag Nonreactive (Nonreactive)
[2018-11-26 19:19] LABS: Hepatitis A Antibody IgM Nonreactive (Nonreactive); Hepatitis B Core IgM Nonreactive (Nonreactive); Hepatitis C Virus Antibody Nonreactive (Nonreactive)
[2018-11-26 19:32] LABS: Chlamydia Trachomatis DNA Ur NOT DETECTED (Not Detect)
[2018-11-26 20:45] LABS: Acetaminophen < 10 mcg/mL (10-20); Magnesium 2.3 mg/dL (1.6-2.6)
[2018-11-26] MEDS ORDERED: traMADol 50 MG TABLET PO ONE (21:19)
[2018-11-27] MEDS ORDERED: *HR* Metoprolol 5 MG/5 ML VIAL IVP ONE (01:20)
[2018-11-27 02:43] LABS: Basophils % 0.3 %; Immature Granulocytes % 0.3 % (0-4); Mean Corpuscular HGB Conc 34.3 g/dL (31.6-35.5); Red Cell Distribution Width 13.8 % (11.5-14.5)
[2018-11-27 02:45] LABS: Hematocrit 31.5 % (35.3-44.9); Hemoglobin 10.8 g/dL (11.5-15.4); Lymphocytes # 1.3 K/mcL (0.6-4.6); Lymphocytes % 31.8 %; Mean Corpuscular Hemoglobin 32.3 pg (28.0-33.3); Mean Corpuscular Volume 94.3 fL (83.0-100.0); Mean Platelet Volume 11.8 fL (9.4-12.4); Monocytes # 0.5 K/mcL (0.0-1.3); Monocytes % 12.4 %; Neutrophils # 2.2 K/mcL (1.6-8.9); Red Blood Count 3.34 M/mcL (3.82-4.97); Segmented Neutrophils % 54.2 %
[2018-11-27 02:50] LABS: Platelet Count 82 K/mcL (140-400)
[2018-11-27 02:59] LABS: Alanine Aminotransferase 40 Units/L (7-52); Albumin/Globulin Ratio 1.4 (1.1-2.2); Alkaline Phosphatase 92 Units/L (34-104); Aspartate Amino Transferase 110 Units/L (13-39); BUN/Creatinine Ratio 17 (6-26); Bilirubin,Direct 0.6 mg/dL (0.0-0.2); Bilirubin,Total 2.6 mg/dL (0.3-1.0); Blood Urea Nitrogen 8 mg/dL (6-20); Calcium 8.6 mg/dL (8.6-10.3); Carbon Dioxide 22 mEq/L (23-29); Chloride 104 mEq/L (98-107); Globulin 2.8 g/dL (2.4-3.5); Glucose 105 mg/dL (70-105); Magnesium 2.2 mg/dL (1.6-2.6); Osmolality,Calculated 281 (280-300); Phosphorous 2.6 mg/dL (2.7-4.5); Potassium 3.5 mEq/L (3.5-5.1); Sodium 136 mEq/L (136-145); Total Protein 6.8 g/dL (6.4-8.9); eGFR For African Americans > 60 (> 60); eGFR For Non-African Americans > 60 (> 60)
[2018-11-27] MEDS: *HR* LORazepam 2 MG/ML VIAL IVP PRN (05:42)
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
--- NOTE | 2018-11-27 10:22 | EEG/EMG/Oth Biometrics Report ---
EEG Procedure Report EEG Procedure: Routine EEG Procedure Note: This is a routine 21 channel digital EEG performed utilizing 10- 20 international electrode placement system. FINDINGS: Patient has a predominant waking background frequency that is average voltage 8 to 10 Hertz alpha activity in the posterior region, normal amplitude symmetrical over the both hemispheres reactive to eyes opening and closing record continued to show alpha activity intermixed with Beta activity off and on, no abnormal activity recorded, predominantly no evidence of any spike wave discharges or any lateralizing abnormalities, Photic stimulation did not produce any convulsive response. Intermittent EMG artifacts were noted. Stage II sleep was not achieved. Impression: Normal awake drowsy electroencephalogram. With the exception of beta activity which is a nonspecific pattern mostly seen due to the medication side effects and particularly benzodiazepines and barbiturates. No epileptiform discharges or any other paroxysmal activities noted. ( Please note that normal EEG does not exclude the diagnosis of seizures or epilepsy, clinical correlation is suggested)
[2018-11-27] MEDS ORDERED: Potassium Chloride Elixir 20 MEQ/15 ML UDC PO ONE (10:53)
[2018-11-27 11:27] VITALS: BP 127/87
--- NOTE | 2018-11-27 13:17 | Electrocardiograph Report ---
[place] [address] Test Date: 2018-11-26 Pat Name: Maria Luisa Garvey Department: [id number] Room: 3B22 Gender: F Hydrology Teacher: : 1985 Requested By: Rakan Chu Order Number: [id number] Reading MD: Stepan Frank Measurements Intervals [place] Rate: 92 P: 60 DC: 147 QRS: 65 QRSD: 84 T: 50 QT: 439 QTc: 544 Interpretive Statements Sinus rhythm Prolonged QT interval Electronically Signed On 11-27-2018 13:16:31 EDT by Stepan Frank
--- NOTE | 2018-11-27 13:42 | Electrocardiograph Report ---
[address] [address] Test Date: 2018-11-27 Pat Name: Maria Luisa Garvey Department: 113 Room: 3B22 Gender: F Order Taker: : 1985 Requested By: Navya Saunders Order Number: [id number] Reading MD: Stepan Frank Measurements Intervals [place] Rate: 82 P: 35 AL: 152 QRS: 20 QRSD: 90 T: 17 QT: 468 QTc: 507 Interpretive Statements SINUS RHYTHM MODERATE T-WAVE ABNORMALITY, CONSIDER ANTERIOR ISCHEMIA Electronically Signed On 11-27-2018 13:40:09 EDT by Stepan Frank
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
== END 2018-11-27 12:38 | disposition left against medical advice (07) ==
LOC: 3BNU 09:56 → EMEROOARM 09:56 → SUATTDRO 13:36 → 3BNU 14:19
PROVIDERS: ADMIT Internal Medicine; ATTEND Internal Medicine